=== PATIENT | female | born 1930 | race Caucasian/White ===

== ENCOUNTER 2016-05-31 14:02 | Emergency (ER) | payer BC, OTHER ==
[~2016-05-31 14:02] MED LIST: ATOR-22 PO; CHOL100010 PO; LOSA50TA54 PO; ONDA4TAB10 SL
[2016-05-31 14:07] VITALS: TEMP 36.8
[2016-05-31] MEDS ORDERED: ESCI1TAB6 PO (14:49)
[2016-05-31] MEDS ORDERED: NEOMSUS6 OPL (14:49)
[2016-05-31] MEDS ORDERED: SODIUM CHLORIDE 0.9% 250ML 250 ML IV STA (15:26)
[2016-05-31] MEDS ORDERED: SODIUM CHLORIDE 0.9% 1000ML 1,000 ML IV STA (15:26)
--- NOTE | 2016-05-31 15:26 | EMERGENCY ROOM VISIT NOTE ---
History Report prepared by Dang: Carol Henson Under the Supervision of: Dr. Dulce Durbin M.D. First contact with patient: 14:58 Chief Complaint: LEG PAIN,LEG INJURY Stated Complaint: LEGS History of Present Illness The patient is a 86 year old female who presents to the Emergency Room with complaints of intermittent bilateral inner leg pain that started this morning. The pain is not influenced by walking. She has experienced this pain once in the past when she was dehydrated per her daughter. She denies fevers and vomiting. She saw her PCP yesterday and everything was fine. The patient lives alone and has not experienced any trouble ambulating. She states that she eats 3 meals a day but her son states that she has trouble remembering things so they don't know how much she eats. Source of History: patient, family (daughter) Onset: this morning Position: leg (bilateral) Quality: other (bilateral inner leg pain) Timing: intermittent Associated Symptoms: No fevers, No vomiting Review of Systems See HPI for pertinent positives & negatives. A total of 10 systems reviewed and were otherwise negative. Past Medical & Surgical Medical Problems: (1) Benign hypertension (2) BRBPR (bright red blood per rectum) (3) Breast cancer (4) Gastroesophageal reflux disease (5) Heart disease (6) Mastectomy (7) Pulmonary embolism (8) UTI Social History Problems: (1) Hearing loss Family History No pertinent family history Social History Smoking Status: Never Smoker Alcohol Use: none Marital Status: Housing Status: lives alone Occupation Status: retired Current/Historical Medications Scheduled Aspirin (Aspirin Ec), 81 MG PO DAILY Atorvastatin (Lipitor), 20 MG PO DAILY@1630 Carvedilol (Coreg), 1 TAB PO BID Cholecalciferol (Vitamin D), 1,000 INTER.UNIT PO DAILY@1630 Escitalopram Oxalate (Lexapro), 5 MG PO DAILY Famotidine (Pepcid), 20 MG PO HS Hydrochlorothiazide (Hctz), 25 MG PO DAILY Losartan Potassium (Cozaar), 25 MG PO DAILY Ocyqnzvn-Ytcsqyqgk-Uk Oph (Cortisporin Oph), 1 DROP OPL Q4 Ocuvite Preservision (Ocuvite Preservision), 1 TAB PO DAILY Ondasetron Odt (Zofran Odt), 4 MG SL Q6H Travoprost (Travatan Z), 1 DROP OPB HS Scheduled PRN Lorazepam (Ativan), 0.5 MG PO DAILY@1200 PRN for Anxiety Allergies Coded Allergies: Clindamycin/Lincomycin (Verified Allergy, Severe, SHORTNESS OF BREATH, ) Cephalosporins (Verified Allergy, Intermediate, RASH-UPSET STOMACH, ) Penicillins (Verified Allergy, Intermediate, RASH-UPSET STOMACH, 05/31/16) Aspirin (Verified Adverse Reaction, Mild, burning is stomach, 05/31/16) Physical Exam Vital Signs Date Time Temp Pulse Resp B/P Pulse Ox O2 Delivery O2 Flow Rate FiO2 05/31/16 17:35 66 17 180/95 96 05/31/16 16:45 60 05/31/16 16:15 53 12 171/88 98 Room Air 05/31/16 14:07 36.8 63 18 149/81 94 Room Air Physical Exam Vital signs reviewed. General: Well-appearing female, in no significant distress. HEENT: No scleral icterus, PERRLA, neck supple. Atraumatic. Cardiovascular: Regular rate and rhythm, no extra sounds. Pulmonary: Clear to auscultation bilaterally, normal work of breathing. Abdomen: Soft, nontender, nondistended, positive bowel sounds. Musculoskeletal: Atraumatic, no peripheral edema. Nontender to palpation of bilateral lower extremities. Neurologic: Patient awake alert and oriented x 3, full strength in all 4 extremities. Cranial nerves 2 through 12 grossly intact. Skin: Warm, dry, no rash Medical Decision & Procedures Laboratory Results 05/31/16 15:45 Red Blood Count 4.24, Mean Corpuscular Volume 90.8, Mean Corpuscular Hemoglobin 30.4, Mean Corpuscular Hemoglobin Concent 33.5, Mean Platelet Volume 10.5, Neutrophils (%) (Auto) 73.0, Lymphocytes (%) (Auto) 16.0, Monocytes (%) (Auto) 8.7, Eosinophils (%) (Auto) 1.6, Basophils (%) (Auto) 0.2, Neutrophils # (Auto) 8.78, Lymphocytes # (Auto) 1.92, Monocytes # (Auto) 1.05, Eosinophils # (Auto) 0.19, Basophils # (Auto) 0.03 05/31/16 15:45 Test 05/31/16 15:45 05/31/16 15:49 05/31/16 16:00 White Blood Count 12.03 K/uL (4.8-10.8) Red Blood Count 4.24 M/uL (4.2-5.4) Hemoglobin 12.9 g/dL (12.0-16.0) Hematocrit 38.5 % (37-47) Mean Corpuscular Volume 90.8 fL (80-100) Mean Corpuscular Hemoglobin 30.4 pg (25-34) Mean Corpuscular Hemoglobin Concent 33.5 g/dl (32-36) Platelet Count 617 K/uL (130-400) Mean Platelet Volume 10.5 fL (7.4-10.4) Neutrophils (%) (Auto) 73.0 % Lymphocytes (%) (Auto) 16.0 % Monocytes (%) (Auto) 8.7 % Eosinophils (%) (Auto) 1.6 % Basophils (%) (Auto) 0.2 % Neutrophils # (Auto) 8.78 K/uL (1.4-6.5) Lymphocytes # (Auto) 1.92 K/uL (1.2-3.4) Monocytes # (Auto) 1.05 K/uL (0.11-0.59) Eosinophils # (Auto) 0.19 K/uL (0-0.5) Basophils # (Auto) 0.03 K/uL (0-0.2) RDW Standard Deviation 51.0 fL (36.4-46.3) RDW Coefficient of Variation 15.4 % (11.5-14.5) Immature Granulocyte % (Auto) 0.5 % Immature Granulocyte # (Auto) 0.06 K/uL (0.00-0.02) Anion Gap 7.0 mmol/L (3-11) Estimated GFR () 59.8 Estimated GFR (Non- 51.6 BUN/Creatinine Ratio 22.1 (10-20) Calcium Level 8.6 mg/dl (8.5-10.1) Magnesium Level 2.0 mg/dl (1.8-2.4) Total Bilirubin 0.4 mg/dl (0.2-1) Direct Bilirubin 0.1 mg/dl (0-0.2) Aspartate Amino Transf (AST/SGOT) 15 U/L (15-37) Alanine Aminotransferase (ALT/SGPT) 22 U/L (12-78) Alkaline Phosphatase 80 U/L (45-117) Total Protein 6.4 gm/dl (6.4-8.2) Albumin 3.7 gm/dl (3.4-5.0) Lipase 87 U/L (73-393) Bedside Troponin I 0.000 ng/ml (0-0.045) Urine Color YELLOW Urine Appearance CLEAR (CLEAR) Urine pH 6.5 (4.5-7.5) Urine Specific [place] 1.005 (1.000-1.030) Urine Protein NEG (NEG) Urine Glucose (UA) NEG (NEG) Urine Ketones NEG (NEG) Urine Occult Blood NEG (NEG) Urine Nitrite NEG (NEG) Urine Bilirubin NEG (NEG) Urine Urobilinogen NEG (NEG) Urine Leukocyte Esterase NEG (NEG) Laboratory results per my review. Medications Administered Medications (Trade) Dose Ordered Sig/Pelon Route Start Time Stop Time Status Last Admin Dose Admin Sodium Chloride 250 ml @ 999 mls/hr Q16M STAT IV 05/31/16 15:26 05/31/16 15:41 DC 05/31/16 16:00 999 MLS/HR Sodium Chloride (Nss 1000ml) 1,000 ml @ 125 mls/hr Q8H STAT IV 05/31/16 15:26 05/31/16 18:32 DC 05/31/16 16:00 125 MLS/HR ECG Rate (beats per minute): 54 Rhythm: sinus bradycardia Findings: no acute ischemic change, no ectopy, other (previous septal infarct) ED Course 1516: Past medical records reviewed. The patient was evaluated in room B12. A complete history and physical examination was performed. 1526: Ordered Sodium Chloride 1000 ml @ 125 mls/hr IV, Sodium Chloride 250 ml @ 999 mls/hr IV 1701: Upon reevaluation, the patient appeared to have improvement of her symptoms. I discussed findings with the patient and her family. They verbalized agreement of the treatment plan. The patient was discharged home. Medical Decision The patient is a 86 year old female who presents to the Emergency Room with complaints of intermittent bilateral inner leg pain that started this morning. Differentials include metabolic, infection, hypo/hyperglycemia, electrolyte abnormalities, cardiac sources, intracerebral event, toxicologic, neurologic, sciatica. This patient was evaluated and appeared to be in no distress. IV access was obtained and laboratory work was drawn. Patient was placed on the monitor and storage bin tender. Patient was hydrated with normal saline solution. Laboratory work reveals no significant abnormalities. The patient's BUN is slightly elevated, consistent with previous numbers. Urinalysis is negative for infection. At this time the patient is feeling much improved. I believe her leg pain is likely a muscular or neuropathic pain. Patient's family feels comfortable with the plan for discharge. They will follow-up with primary care provider this week and return to the ER for worsening of symptoms or any medical concerns. Impression Primary Impression: Bilateral leg pain Scribe Attestation The scribe's documentation has been prepared under my direction and personally reviewed by me in its entirety. I confirm that the note above accurately reflects all work, treatment, procedures, and medical decision making performed by me. Departure Information Dispostion Home / Self-Care Referrals Avelina Lugo C.R.N.P (PCP) Forms HOME CARE DOCUMENTATION FORM, IMPORTANT VISIT INFORMATION Patient Instructions My [facility] Additional Instructions Diagnosis: Bilateral leg pain Drink plenty of clear fluids. Eat frequent small meals. Continue medications as prescribed. Follow-up with your physician this week for reevaluation. Return to the ER for worsening of symptoms or any medical concerns.
[2016-05-31 15:58] LABS: BASO % 0.2 %; BASO ABS # 0.03 K/uL (0-0.2); COMPLETE YES; EOS % 1.6 %; HEMATOCRIT 38.5 % (37-47); IG% 0.5 %; LYMPH ABS # 1.92 K/uL (1.2-3.4); MEAN CELL VOLUME 90.8 fL (80-100); MEAN CORPUSCULAR HEMOGLOBIN 30.4 pg (25-34); MEAN CORPUSCULAR HGB CONC 33.5 g/dl (32-36); MEAN PLATELET VOLUME 10.5 fL (7.4-10.4); MONO % 8.7 %; PLATELET COUNT 617 K/uL (130-400); RED BLOOD COUNT 4.24 M/uL (4.2-5.4); WHITE BLOOD COUNT 12.03 K/uL (4.8-10.8)
[2016-05-31 16:21] LABS: ALT/SGPT 22 U/L (12-78); AST/SGOT 15 U/L (15-37); BLOOD UREA NITROGEN 22 mg/dl (7-18); BUN/CREATININE RATIO 22.1 (10-20); CALCIUM 8.6 mg/dl (8.5-10.1); CARBON DIOXIDE 30 mmol/L (21-32); CHLORIDE 101 mmol/L (98-107); CREATININE 0.99 mg/dl (0.60-1.20); GLUCOSE 100 mg/dl (70-99); POTASSIUM 3.9 mmol/L (3.5-5.1); SODIUM 138 mmol/L (136-145)
[2016-05-31 16:24] LABS: ALKALINE PHOSPHATASE 80 U/L (45-117)
[2016-05-31 16:38] LABS: URINE APPEARANCE CLEAR (CLEAR); URINE BILIRUBIN NEG (NEG); URINE COLOR YELLOW; URINE NITRITE NEG (NEG); URINE PH 6.5 (4.5-7.5); URINE SPECIFIC GRAVITY 1.005 (1.000-1.030); UROBILINOGEN NEG (NEG); ZZUR CULT IF INDIC CLEAN CATCH NO
[2016-05-31 16:47] LABS: MANUAL MICROSCOPIC REQUIRED? NO; REVIEW REQ? NO
[2016-05-31 17:35] VITALS: BP 180/95; PULSE 66; O2SAT 96
[2016-09-02] MEDS ORDERED: FAMO20TA9 PO (12:27)
[2016-09-02] MEDS ORDERED: TRAV0.00 OPB (12:36)
[2016-09-02] MEDS ORDERED: MULT-190 PO (14:23)
[2016-09-02] MEDS ORDERED: CARV3.122 PO (14:47)
[2016-09-02] MEDS ORDERED: ATV/1 PO (14:47)
[2016-09-02] MEDS ORDERED: HYDR25TA4 PO (14:47)
[2016-09-02] MEDS ORDERED: ASPI81TA28 PO (14:47)
== END 2016-05-31 17:37 | disposition home or self-care (01) ==
LOC: C.EDB 14:12
DX: M79.604 Pain in right leg (principal); M79.605 Pain in left leg; I10 Essential (primary) hypertension; K21.9 Gastro-esophageal reflux disease without esophagitis; H91.90 Unspecified hearing loss, unspecified ear; Z79.899 Other long term (current) drug therapy; Z79.82 Long term (current) use of aspirin; Z85.3 Personal history of malignant neoplasm of breast; Z86.711 Personal history of pulmonary embolism

== ENCOUNTER → 2016-06-14 | Outpatient (CLI) | payer BC ==
[~2016-06-14] MED LIST changes: +ASPI81TA28 PO; +ATV/1 PO; +CARV3.122 PO; +CHOL100027 PO; +ESCI10TA17 PO; +ESCI1TAB6 PO; +FAMO20TA9 PO; +HYDR25TA4 PO; +LOSA50TA6 PO; +MULT-190 PO; +NEOMSUS6 OPL; +TRAV0.00 OPB
--- NOTE | 2016-06-14 14:02 | DIAGNOSTIC IMAGING REPORT ---
LEFT LOWER EXTREMITY VENOUS DOPPLER CLINICAL HISTORY: Left calf pain. COMPARISON STUDY: Left lower extremity venous Doppler June 25, 2011. TECHNIQUE: Sonography of the deep venous system of the left lower extremity was performed. Compression and augmentation were evaluated. FINDINGS: The left common femoral, superficial femoral and popliteal veins were compressible. Augmentation was normal. Flow was shown within the deep calf vessels. IMPRESSION: No evidence of deep venous thrombus within the left lower extremity. Electronically signed by: Charan Fountain M.D. 06/14/2016 2:01 PM Dictated Date/Time: 06/14/2016 2:00 PM
== END | disposition home or self-care (01) ==
LOC: C.ULTR 12:48
PROVIDERS: ATTEND Nurse Practitioner
DX: M79.662 Pain in left lower leg (principal); Z86.711 Personal history of pulmonary embolism

== ENCOUNTER 2016-09-02 20:49 | Emergency (ER) | payer BC ==
[~2016-09-02] VITALS: Ht 160 cm; Wt 76.9 kg
[~2016-09-02 20:49] MED LIST changes: -CHOL100027 PO; -ESCI10TA17 PO; -LOSA50TA6 PO; -ONDA4TAB10 SL
[2016-09-02 20:59] VITALS: TEMP 36.8; Ht 160 cm; Wt 76.9 kg
[2016-09-02] MEDS ORDERED: ONDANSETRON INJ 2 MG/ML 2 ML VIAL IV STA (21:12)
[2016-09-02] MEDS ORDERED: MoRPHine SULFATE 4 MG/ML 1 ML CARP\\VIAL IV STA (21:12)
[2016-09-02] MEDS ORDERED: OPTIRAY 320 IV PRN (21:15)
[2016-09-02] MEDS ORDERED: MoRPHine SULFATE 2 MG/ML CARP ONE (21:26)
[2016-09-02 21:30] LABS: BASO % 0.3 %; BASO ABS # 0.04 K/uL (0-0.2); COMPLETE YES; EOS % 3.4 %; HEMATOCRIT 42.7 % (37-47); IG% 0.8 %; LYMPH % 19.1 %; LYMPH ABS # 2.27 K/uL (1.2-3.4); MEAN CELL VOLUME 90.5 fL (80-100); MEAN CORPUSCULAR HEMOGLOBIN 29.9 pg (25-34); MEAN PLATELET VOLUME 10.7 fL (7.4-10.4); MONO % 9.2 %; NEUT % 67.2 %; PLATELET COUNT 690 K/uL (130-400); RED BLOOD COUNT 4.72 M/uL (4.2-5.4); WHITE BLOOD COUNT 11.88 K/uL (4.8-10.8)
[2016-09-02 21:36] LABS: ISTAT IONIZED CALCIUM 1.17 mmol/l (1.12-1.32)
[2016-09-02] MEDS ORDERED: CHOL100027 PO (21:38)
[2016-09-02] MEDS ORDERED: LOSA50TA6 PO (21:38)
[2016-09-02] MEDS ORDERED: ESCI10TA17 PO (21:38)
[2016-09-02 21:39] LABS: PARTIAL THROMBOPLASTIN RATIO 1.1; PROTHROMBIN TIME (PATIENT) 10.8 SECONDS (9.0-12.0)
--- NOTE | 2016-09-02 21:50 | DIAGNOSTIC IMAGING REPORT ---
CT ABD/PELVIS IV CONTRAST ONLY CLINICAL HISTORY: Abdominal pain status post trauma COMPARISON STUDY: 09/20/2015 TECHNIQUE: Following the IV administration of 93 mL of Optiray-320, CT scan of the abdomen and pelvis was performed from the lung bases to the proximal femurs. Images are reviewed in the axial, sagittal, and coronal planes. IV contrast was administered without complication. CT DOSE: 499.07 mGy.cm FINDINGS: Lower chest: There are mild basilar atelectatic changes. No pneumothorax is visualized. Liver: The contrast-enhanced liver is normal in size, contour, and attenuation. There is no intrahepatic biliary ductal dilatation. The hepatic veins and portal veins are patent. Gallbladder: Unremarkable. Spleen: Normal in size and attenuation. Pancreas: Unremarkable. Adrenal glands: There is mild left adrenal gland thickening unchanged the prior study Kidneys: There is a 4 mm left renal hypodensity, likely representing a cyst. There is no evidence of acute renal injury. Bowel: There are no transition zones indicate bowel obstruction. There are no extraluminal gas collections. There is a bowel containing right inguinal hernia. There is no current evidence of bowel obstruction. Peritoneum: There is no intraperitoneal free air or abdominal ascites. Vasculature: The abdominal aorta is normal in course and caliber. Adenopathy: None. Pelvic viscera: There is a 9 cm calcified uterine fibroid Skeletal structures: Degenerative changes are present within the lumbar spine. IMPRESSION: 1. No evidence of acute intra-abdominal or pelvic injury. 2. Right inguinal hernia containing a loop of small bowel. No current evidence of obstruction. Electronically signed by: Marcos Griffiths M.D. 09/02/2016 9:48 PM Dictated Date/Time: 09/02/2016 9:44 PM
[2016-09-02 21:54] LABS: ALT/SGPT 18 U/L (12-78); BLOOD UREA NITROGEN 20 mg/dl (7-18); BUN/CREATININE RATIO 18.4 (10-20); CARBON DIOXIDE 28 mmol/L (21-32); CHLORIDE 104 mmol/L (98-107); GLUCOSE 98 mg/dl (70-99); POTASSIUM 3.9 mmol/L (3.5-5.1); SODIUM 142 mmol/L (136-145)
[2016-09-02 21:57] LABS: ALKALINE PHOSPHATASE 80 U/L (45-117); AST/SGOT 20 U/L (15-37)
[2016-09-02 22:05] LABS: CALCIUM 9.2 mg/dl (8.5-10.1)
[2016-09-02 22:12] LABS: URINE APPEARANCE CLEAR (CLEAR); URINE BILIRUBIN NEG (NEG); URINE COLOR YELLOW; URINE NITRITE NEG (NEG); URINE SPECIFIC GRAVITY 1.023 (1.000-1.030); UROBILINOGEN NEG (NEG)
[2016-09-02 22:13] LABS: MANUAL MICROSCOPIC REQUIRED? NO; REVIEW REQ? NO
[2016-09-02 22:36] VITALS: BP 172/81; PULSE 66; O2SAT 95
--- NOTE | 2016-09-03 00:01 | EMERGENCY ROOM VISIT NOTE ---
History Report prepared by Dang: Dorothy Haile Under the Supervision of: Dr. Santos Broussard M.D. 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 The patient was outside this evening when she slipped on the wet grass and fell to the ground. She could not catch herself and landed on her abdomen. She is currently complaining of diffuse abdominal pains that she rates as a 7/10 in severity. She felt nauseated at first, but is no longer feeling nauseated. The patient has chronic joint pain but she denies any new injury to her arms, legs, hips, neck, or back. She denies LOC. She does not think that she hit her face when she fell. She denies breaking her glasses and denies any nasal pain or headache. The patient takes aspirin but denies other blood thinners. Source of History: patient Onset: DIFFERENTIAL SPECIALIST Position: abdomen Symptom Intensity: 7/10 Timing: other (episode) Associated Symptoms: + nausea, No LOC, No back pain, No headache, No neck pain Review of Systems See HPI for pertinent positives & negatives. A total of 10 systems reviewed and were otherwise negative. Past Medical & Surgical Medical Problems: (1) Benign hypertension (2) BRBPR (bright red blood per rectum) (3) Breast cancer (4) Gastroesophageal reflux disease (5) Heart disease (6) Mastectomy (7) Pulmonary embolism (8) UTI Social History Problems: (1) Hearing loss Family History No pertinent family history Social History Smoking Status: Never Smoker Alcohol Use: none Marital Status: Housing Status: lives alone Occupation Status: retired Current/Historical Medications Scheduled Aspirin (Aspirin Ec), 81 MG PO DAILY Carvedilol (Coreg), 1 TAB PO BID Cholecalciferol (Vitamin D 1000 Unit), 1,000 INTER.UNIT PO DAILY Escitalopram (Lexapro), 10 MG PO DAILY Famotidine (Pepcid), 20 MG PO HS Hydrochlorothiazide (Hctz), 25 MG PO DAILY Losartan Potassium (Cozaar), 25 MG PO DAILY Ocuvite Preservision (Ocuvite Preservision), 1 TAB PO DAILY Travoprost (Travatan Z), 1 DROP OPB HS Scheduled PRN Lorazepam (Ativan), 0.5 MG PO DAILY PRN for Anxiety Allergies Coded Allergies: Clindamycin/Lincomycin (Verified Allergy, Severe, SHORTNESS OF BREATH, ) Cephalosporins (Verified Allergy, Intermediate, RASH-UPSET STOMACH, ) Penicillins (Verified Allergy, Intermediate, RASH-UPSET STOMACH, 05/31/16) Aspirin (Verified Adverse Reaction, Mild, burning is stomach, 05/31/16) Physical Exam Vital Signs Date Time Temp Pulse Resp B/P Pulse Ox O2 Delivery O2 Flow Rate FiO2 09/02/16 22:36 66 20 172/81 95 Room Air 09/02/16 21:26 62 09/02/16 21:25 60 16 170/86 91 Room Air 09/02/16 20:59 36.8 63 16 176/93 Room Air Physical Exam Constitutional: Vital signs reviewed. Eyes: Pupils are equal round reactive to light. Conjunctiva are noninjected. ENT: Pharynx is clear without erythema or exudate. Mucous membranes are moist. Neck supple without meningeal signs. Respiratory: Clear to auscultation bilaterally. Breath sounds are equal bilaterally. Cardiovascular: Regular rate and rhythm. No rubs or gallops. GI: Soft, nondistended. Mild diffuse tenderness throughout the abdomen greater on the right side. Bowel sounds are present. Musculoskeletal: No hip or lower extremity tenderness. No tenderness to the shoulders or clavicles. No midline tenderness to the cervical spine. Integumentary: No cyanosis. Neurological: The patient is awake and alert. No focal deficits. Psychiatric: Normal affect. Medical Decision & Procedures ER Provider Diagnostic Interpretation: Radiology results as stated below per my review and the radiologist's interpretation: CT ABD/PELVIS IV CONTRAST ONLY CLINICAL HISTORY: Abdominal pain status post trauma COMPARISON STUDY: 09/20/2015 TECHNIQUE: Following the IV administration of 93 mL of Optiray-320, CT scan of the abdomen and pelvis was performed from the lung bases to the proximal femurs. Images are reviewed in the axial, sagittal, and coronal planes. IV contrast was administered without complication. CT DOSE: 499.07 mGy.cm FINDINGS: Lower chest: There are mild basilar atelectatic changes. No pneumothorax is visualized. Liver: The contrast-enhanced liver is normal in size, contour, and attenuation. There is no intrahepatic biliary ductal dilatation. The hepatic veins and portal veins are patent. Gallbladder: Unremarkable. Spleen: Normal in size and attenuation. Pancreas: Unremarkable. Adrenal glands: There is mild left adrenal gland thickening unchanged the prior study Kidneys: There is a 4 mm left renal hypodensity, likely representing a cyst. There is no evidence of acute renal injury. Bowel: There are no transition zones indicate bowel obstruction. There are no extraluminal gas collections. There is a bowel containing right inguinal hernia. There is no current evidence of bowel obstruction. Peritoneum: There is no intraperitoneal free air or abdominal ascites. Vasculature: The abdominal aorta is normal in course and caliber. Adenopathy: None. Pelvic viscera: There is a 9 cm calcified uterine fibroid Skeletal structures: Degenerative changes are present within the lumbar spine. IMPRESSION: 1. No evidence of acute intra-abdominal or pelvic injury. 2. Right inguinal hernia containing a loop of small bowel. No current evidence of obstruction. Electronically signed by: Marcos Griffiths M.D. 09/02/2016 9:48 PM Dictated Date/Time: 09/02/2016 9:44 PM Laboratory Results 09/02/16 21:15 Red Blood Count 4.72, Mean Corpuscular Volume 90.5, Mean Corpuscular Hemoglobin 29.9, Mean Corpuscular Hemoglobin Concent 33.0, Mean Platelet Volume 10.7, Neutrophils (%) (Auto) 67.2, Lymphocytes (%) (Auto) 19.1, Monocytes (%) (Auto) 9.2, Eosinophils (%) (Auto) 3.4, Basophils (%) (Auto) 0.3, Neutrophils # (Auto) 7.99, Lymphocytes # (Auto) 2.27, Monocytes # (Auto) 1.09, Eosinophils # (Auto) 0.40, Basophils # (Auto) 0.04 09/02/16 21:15 Test 09/02/16 21:15 09/02/16 21:22 09/02/16 22:00 White Blood Count 11.88 K/uL (4.8-10.8) Red Blood Count 4.72 M/uL (4.2-5.4) Hemoglobin 14.1 g/dL (12.0-16.0) Hematocrit 42.7 % (37-47) Mean Corpuscular Volume 90.5 fL (80-100) Mean Corpuscular Hemoglobin 29.9 pg (25-34) Mean Corpuscular Hemoglobin Concent 33.0 g/dl (32-36) Platelet Count 690 K/uL (130-400) Mean Platelet Volume 10.7 fL (7.4-10.4) Neutrophils (%) (Auto) 67.2 % Lymphocytes (%) (Auto) 19.1 % Monocytes (%) (Auto) 9.2 % Eosinophils (%) (Auto) 3.4 % Basophils (%) (Auto) 0.3 % Neutrophils # (Auto) 7.99 K/uL (1.4-6.5) Lymphocytes # (Auto) 2.27 K/uL (1.2-3.4) Monocytes # (Auto) 1.09 K/uL (0.11-0.59) Eosinophils # (Auto) 0.40 K/uL (0-0.5) Basophils # (Auto) 0.04 K/uL (0-0.2) RDW Standard Deviation 52.2 fL (36.4-46.3) RDW Coefficient of Variation 15.7 % (11.5-14.5) Immature Granulocyte % (Auto) 0.8 % Immature Granulocyte # (Auto) 0.09 K/uL (0.00-0.02) Prothrombin Time 10.8 SECONDS (9.0-12.0) Prothromb Time International Ratio 1.0 (0.9-1.1) Activated Partial Thromboplast Time 29.6 SECONDS (21.0-31.0) Partial Thromboplastin Ratio 1.1 Est Creatinine Clear Calc Drug Dose 36.0 ml/min Estimated GFR () 52.6 Estimated GFR (Non- 45.4 BUN/Creatinine Ratio 18.4 (10-20) Calcium Level 9.2 mg/dl (8.5-10.1) Total Bilirubin 0.3 mg/dl (0.2-1) Direct Bilirubin < 0.1 mg/dl (0-0.2) Aspartate Amino Transf (AST/SGOT) 20 U/L (15-37) Alanine Aminotransferase (ALT/SGPT) 18 U/L (12-78) Alkaline Phosphatase 80 U/L (45-117) Total Protein 6.6 gm/dl (6.4-8.2) Albumin 3.8 gm/dl (3.4-5.0) Lipase 80 U/L (73-393) Bedside Hemoglobin 15.0 g/dl (12.0-16.0) Bedside Hematocrit 44 % (37-47) Bedside Sodium 142 mEq/L (135-144) Bedside Potassium 3.9 mEq/L (3.3-5.0) Bedside Chloride 100 mEq/L (101-112) Bedside Total CO2 26 mEq/l (24-31) Anion Gap 20.0 mmol/L (16-25) Bedside Blood Urea Nitrogen 22 mg/dl (7-18) Bedside Creatinine 1.0 mg/dl (0.6-1.3) Bedside Glucose (other) 99 mg/dl (70-99) Bedside Ionized Calcium (Carey) 1.17 mmol/l (1.12-1.32) Urine Color YELLOW Urine Appearance CLEAR (CLEAR) Urine pH 7.0 (4.5-7.5) Urine Specific [place] 1.023 (1.000-1.030) Urine Protein NEG (NEG) Urine Glucose (UA) NEG (NEG) Urine Ketones NEG (NEG) Urine Occult Blood NEG (NEG) Urine Nitrite NEG (NEG) Urine Bilirubin NEG (NEG) Urine Urobilinogen NEG (NEG) Urine Leukocyte Esterase SMALL (NEG) Urine WBC (Auto) 5-10 /hpf (0-5) Urine RBC (Auto) 0-4 /hpf (0-4) Urine Hyaline Casts (Auto) 0 /lpf (0-5) Urine Epithelial Cells (Auto) 5-10 /lpf (0-5) Urine Bacteria (Auto) NEG (NEG) Laboratory results as reviewed by me. ED Course 2104: The patient was evaluated in room A12B. A complete history and physical exam was performed. 2111: Zofran 4 mg IV - pt refused, Morphine sulfate 2 mg IV - pt refused. 2125: Morphine sulfate 2 mg IV - pt refused 4: I went to check on the patient but she was in the bathroom. 2226: I reassessed the patient at this time. She has refused all of her medications but states that she is feeling better. I discussed the results with the patient and she states that she already knows about the inguinal hernia. I answered all pertaining questions that she had. She expressed understanding and verbalized agreement. On reexamination the patient had minimal to no tenderness. There was an easily reducible right inguinal hernia. The patient will be discharged home. Medical Decision This is an 86-year-old female who presents with abdominal pain after falling. She denies any other injuries. I did perform a limited focused review of portions of the patient's old chart on the electronic medical record. The patient has had no recent pertinent visits to this hospital. I did evaluate the patient as noted above. IV access was established. I did order and personally review the patient's urine analysis as described above. I did order and review the patient's blood work as noted in the electronic medical record. I did order a CT of the abdomen and pelvis. I did review the images myself as well as the radiology report as described above. There is no evidence of acute intra-abdominal injury. She does have a right inguinal hernia. I did order morphine and Zofran for the patient but she declined it. On reassessment she states that she is feeling better despite not receiving any medication. On reexamination she has a reducible inguinal hernia on the right side and minimal to no tenderness in the abdomen. She does state that she has known about this single hernia in the past. I did discuss the test results with the patient and her family. I did recommend close follow up with her doctor and reviewed return instructions with the patient and her family. She was discharged in good condition. Impression Primary Impression: Generalized abdominal pain Additional Impressions: Fall Right inguinal hernia Scribe Attestation The scribe's documentation has been prepared under my direct and personally reviewed by me in its entirety. I confirm that the note above accurately reflects all work, treatment, procedures, and medical decision making performed by me. Departure Information Dispostion Home / Self-Care Referrals Avelina Lugo C.R.N.P (PCP) Forms HOME CARE DOCUMENTATION FORM, IMPORTANT VISIT INFORMATION Patient Instructions ED Hernia Inguinal, My [facility] Additional Instructions You have been examined and treated today on an emergency basis only. This is not a substitute for, or an effort to provide, complete comprehensive medical care. It is impossible to recognize and treat all injuries or illnesses in a single emergency department visit. It is therefore important that you follow up closely with your physician within 48 hours. Call as soon as possible for an appointment. Return for worsening symptoms or if you develop fever, vomiting, blood in your stool or urine, or any other concerning symptoms. Problem Qualifiers Additional Impressions: Fall Encounter type: initial encounter Qualified Codes: W19.XXXA - Unspecified fall, initial encounter
== END 2016-09-02 22:40 | disposition home or self-care (01) ==
LOC: C.EDB 20:50 → C.EDA 22:40
DX: R10.84 Generalized abdominal pain (principal); W01.0XXA Fall on same level from slipping, tripping and stumbling without subsequent striking against object, initial encounter; K40.90 Unilateral inguinal hernia, without obstruction or gangrene, not specified as recurrent; D25.9 Leiomyoma of uterus, unspecified; I10 Essential (primary) hypertension; K21.9 Gastro-esophageal reflux disease without esophagitis; I51.9 Heart disease, unspecified; Z86.711 Personal history of pulmonary embolism; Z85.3 Personal history of malignant neoplasm of breast; Z90.10 Acquired absence of unspecified breast and nipple; Z87.440 Personal history of urinary (tract) infections; Z79.82 Long term (current) use of aspirin; Z79.899 Other long term (current) drug therapy; Z88.0 Allergy status to penicillin; Z88.2 Allergy status to sulfonamides; Z88.3 Allergy status to other anti-infective agents; Z88.6 Allergy status to analgesic agent

== ENCOUNTER → 2017-03-06 | Outpatient (CLI) | payer BC ==
[~2017-03-06] MED LIST changes: -ATOR-22 PO; -CHOL100010 PO; +CHOL100027 PO; +ESCI10TA17 PO; -ESCI1TAB6 PO; -LOSA50TA54 PO; +LOSA50TA6 PO; -NEOMSUS6 OPL
[2017-03-06 13:00] LABS: BLOOD UREA NITROGEN 19 mg/dl (7-18); BUN/CREATININE RATIO 20.3 (10-20); CALCIUM 8.8 mg/dl (8.5-10.1); CARBON DIOXIDE 32 mmol/L (21-32); CHLORIDE 104 mmol/L (98-107); CREATININE 0.92 mg/dl (0.60-1.20); GLUCOSE 78 mg/dl (70-99); POTASSIUM 4.2 mmol/L (3.5-5.1); SODIUM 140 mmol/L (136-145)
== END | disposition home or self-care (01) ==
LOC: C.LABPVFM 10:30
PROVIDERS: ATTEND Nurse Practitioner
DX: R63.4 Abnormal weight loss (principal); I10 Essential (primary) hypertension

== ENCOUNTER → 2017-12-03 | Outpatient (CLI) | payer BC ==
--- NOTE | 2017-12-03 14:04 | DIAGNOSTIC IMAGING REPORT ---
L PELVIS/UNILATERAL HIP 2-3VIEWS HISTORY: 87 years-old Female GROIN PAIN acute left hip and pelvic pain COMPARISON: CT abdomen and pelvis 09/02/2016 TECHNIQUE: AP view of the pelvis with 2 views of the left hip FINDINGS: Large calcified uterine leiomyoma is again noted measuring over 9 mm. Probable phleboliths about the pelvis. Degenerative changes about the imaged lumbar spine. Moderate bilateral hip osteoarthritis. The bones appear moderately demineralized. No pelvic ring fracture identified. Left hip appears intact without acute fracture or dislocation. Peripheral arterial calcifications are noted. IMPRESSION: No acute fracture or dislocation. The above report was generated using voice recognition software. It may contain grammatical, syntax or spelling errors. Electronically signed by: Leon Carty M.D. 12/03/2017 2:03 PM Dictated Date/Time: 12/03/2017 2:01 PM
== END | disposition home or self-care (01) ==
LOC: C.RADPV 13:38
PROVIDERS: ATTEND Nurse Practitioner Family
DX: R10.30 Lower abdominal pain, unspecified (principal)

== ENCOUNTER 2018-09-15 10:07 | Inpatient (IN) ==
[2018-09-15] MEDS ORDERED: ALBUT/IPRATROP 3MG/0.5MG NEB 3 ML VIAL INH STA (10:49)
[2018-09-15 11:08] LABS: Basophils # (auto) 0.03 K/uL (0-0.2); Basophils % (auto) 0.2 %; Eosinophils # (auto) 1.03 K/uL (0-0.5); Eosinophils % (auto) 7.9 %; Hematocrit (blood only) 37.5 % (37-47); Hemoglobin 12.4 g/dL (12.0-16.0); Immature Granulocytes # (auto) 0.13 K/uL (0.00-0.02); Lymphocytes # (auto) 1.56 K/uL (1.2-3.4); Lymphocytes % (auto) 11.9 %; Mean Corpuscular Hgb Conc 33.1 g/dL (32-36); Mean Corpuscular Volume 94.7 fL (80-100); Mean Platelet Volume 11.2 fL (7.4-10.4); Monocytes # (auto) 1.32 K/uL (0.11-0.59); Monocytes % (auto) 10.1 %; Neutrophils # (auto) 8.99 K/uL (1.4-6.5); Neutrophils % (auto) 68.9 %; Platelet Count 595 K/uL (130-400); RDW Coefficient of Variation 15.3 % (11.5-14.5); RDW Standard Deviation 52.6 fL (36.4-46.3); Red Blood Count 3.96 M/uL (4.2-5.4); White Blood Count 13.06 K/uL (4.8-10.8)
[2018-09-15 11:17] LABS: Alanine Aminotransferase 27 U/L (12-78); Albumin Level 3.4 gm/dl (3.4-5.0); Aspartate Aminotransferase 21 U/L (15-37); BUN Creatinine Ratio 19.1 (10-20); Blood Urea Nitrogen 21 mg/dl (7-18); Calcium 8.6 mg/dl (8.5-10.1); Carbon Dioxide 31 mmol/L (21-32); Chloride 99 mmol/L (98-107); Creatinine Clr Calc Pharmacy 29.2 ml/min; Est GFR (African American) 51.9; Est GFR (Non-African American) 44.8; Glucose 144 mg/dl (70-99); Magnesium 1.8 mg/dl (1.8-2.4); Potassium 3.7 mmol/L (3.5-5.1); Sodium 136 mmol/L (136-145)
--- NOTE | 2018-09-15 11:17 | XRay Report ---
XR chest 1V portable HISTORY: 88 years-old Female sob acute shortness of breath COMPARISON: Chest radiograph 08/22/2018 TECHNIQUE: Portable AP view of the chest FINDINGS: Cardiac mediastinal and hilar silhouettes are unchanged. There is no pneumothorax, pleural effusion, focal airspace consolidation or overt pulmonary edema. Degenerative changes of the shoulders and spin e. IMPRESSION: No acute process. The above report was generated using voice recognition software. It may contain grammatical, syntax o r spelling errors. Electronically signed by: Leon Carty M.D. 09/15/2018 11:16 AM
[2018-09-15 11:18] LABS: Partial Thromboplastin Time 27.3 Seconds (21.0-31.0); Prothrombin Time 10.4 Seconds (9.0-12.0)
[2018-09-15 11:28] LABS: Albumin Globulin Ratio 1.1 (0.9-2); Alkaline Phosphatase 83 U/L (45-117); Bilirubin,Total 0.6 mg/dl (0.2-1); NT Pro B Type Natriuretic Pept 263 pg/ml (0-1800); Total Protein 6.4 gm/dl (6.4-8.2); Troponin I < 0.015 ng/ml (0-0.045)
[2018-09-15] MEDS ORDERED: OPTIRAY 320 125ml IV PRN (12:38)
--- NOTE | 2018-09-15 12:59 | CT Scan Report ---
CT angio chest PE protocol CT DOSE: 470.00 mGycm HISTORY: 88 years-old Female with PE. Acute cough with short of breath TECHNIQUE: Multiple CTA images of the chest were obtained after the intravenous administration of 98 ml Optiray 320. Coronal and sagittal MIPS were obtained from the axial data set and were submitted f or review. All measurements were obtained according to NASCET criteria. A dose lowering technique wa s utilized adhering to the principles of ALARA. COMPARISON: Chest radiograph of same day, CTA chest 02/26/2011 FINDINGS: CTA: Moderate multichamber cardiac enlargement. No pericardial effusion. Coronary arterial and aortic ghada lar calcifications are noted. There is no thoracic aortic aneurysm or dissection. Moderate mixed plaq ue formation of the thoracic aorta. There is patency of the imaged great vessels. The pulmonary arter ial tree is opacified to the level of the subsegmental branches. The segmental and subsegmental branc hes however are not well seen secondary to respiratory motion artifact. No focal filling defects iden tified to suggest pulmonary thromboembolic disease. Ill-defined linear areas of decreased attenuation about a segmental and subsegmental branches of the lingula (image 123 series 4) are favored to be ar tifactual in nature. CT CHEST: Mildly heterogeneous appearance of the thyroid. Calcified mediastinal and hilar lymph nodes compatibl e with prior granulomatous disease. There is no pneumothorax or pleural effusion. Evaluation of the l magdalena parenchyma is limited secondary to respiratory motion. 4 mm pleural-based nodule of the inferior segment lingula, image 66 series 4 appears new from comparison. There is mild subsegmental bibasilar atelectasis. Subcentimeter calcified granuloma of the superior segment left lower lobe. Moderate bila teral bronchial wall thickening. There are a few benign-appearing solid nodule right upper lobe measu ring up to approximately 3 mm. Focal area of nodularity of the right upper lobe measuring 4 mm on rosalinda ge 182 series 4 years to be in the area of mucous plugging with mild bronchial expansion. There is mo derate narrowing of the right upper lobe bronchus, image 146 series 4 likely from extrinsic compressi on. No endobronchial mass lesion identified. Small sliding-type hernia with moderate wall thickening about the distal esophagus. Hepatic steatosis . Soft tissues are unremarkable. The bones appear intact. Degenerative changes of the shoulders and s pine. IMPRESSION: 1. No acute aortic pathology or evidence of pulmonary thromboembolic disease. 2. Prior granulomatous disease. 3. Moderate narrowing of the right upper lobe bronchus likely from extrinsic mass effect with the adj acent prominent right hilar lymph nodes. Additionally, there is mild mucous plugging and expansion in volving a right upper lobe segmental bronchus. These findings could be correlated with bronchoscopy i f of further clinical concern. 4. Bilateral bronchial wall thickening suggests bronchitis or reactive airway disease. 5. There are a few scattered bilateral solid pulmonary nodules noted above measuring up to 4 mm. 6. Cardiomegaly. 7. Moderate wall thickening of the distal esophagus with small hiatal hernia. 8. Hepatic steatosis. Please refer to below summary of Fleischner criteria recommendations for follow-up of incidental CT n odules (Yohana Irwin, Guidelines for management of small pulmonary nodules detected on CT scans: A sta tement from the Fleischner Society, Radiology 237: [phone].) SOLID NODULES Multiple nodules size: <6 mm * Low risk patients: no routine follow-up * high risk patients: optional CT at 12 months Note: newly detected indeterminate nodule in persons 35 years of age or older. * Low risk patients: minimal or absent history of smoking and/or other known risk factors * high risk patients: history of smoking or of other known risk factors (e.g. first degree relative with lung cancer, or exposure to asbestos, radon, uranium) * if a nodule up to 8 mm is partly solid or is ground glass further follow-up is required after 24 m onths to exclude possible slow growing adenocarcinoma (BHAVESH) The above report was generated using voice recognition software. It may contain grammatical, syntax o r spelling errors. Electronically signed by: Leon Carty M.D. 09/15/2018 12:57 PM
[2018-09-15] MEDS ORDERED: ALBUT/IPRATROP 3MG/0.5MG NEB 3 ML VIAL NEB STA (13:36)
[2018-09-15] MEDS ORDERED: methylPREDNISolone 60 MG in SYRINGE 1 ML IV STA (13:36)
--- NOTE | 2018-09-15 14:10 | History & Physical Report ---
Date of Service September 15, 2018 Assessment & Plan (1) SOB (shortness of breath): Patient is acute respiratory failure with hypoxia. Apparently this is been going on for some time there is bronchial narrowing seen from extrinsic compression from suggestive lymphadenopathy on CT scan. Patient clinical wheezing she will be treated as a bronchospasm with steroids bronchodilators only try Pulmozyme to be a more of a mucolytic type agent. The patient was initially not placed on antibiotics but after examination the family relates her having large thick amounts of yellow mucus coughed up at times will place her on ofloxacin given her penicillin and cephalosporin and clindamycin allergy. (2) Abnormal chest CT: As described as bronchial narrowing from extrinsic compression seen on CT angiogram will consult thoracic surgery to determine best evaluation for this area. Although listed as breast cancer by her history her family is not confirmatory of this they do remember her having a breast biopsy at one point the distant past but did not remember her having any adjunctive treatment (3) Hypertension: Patient is hypertensive regime will be continued which includes losartan Coreg and hydrochlorothiazide. 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 Additionally this morning she became dyspneic with eating. Patient has significant dementia and cannot contribute anything to the conversation. The family, which are POA's, were present. They are in agreement with diagnostic discovery of the etiology of her bronchial narrowing and evaluation for the etiology of her peripheral edema. She is currently a full code but family certainly will take the diagnostic results and make further decisions based upon the significance of these findings. Patient herself does not complain of any chest pain associate with this just lightheadedness and dizziness. She did they deny her having dysphasia but says she gets very short of breath when she tries to eat. There is a recollection of breast cancer in the chart however the family is not confirmatory of that. Allergies Allergy/AdvReac Type Severity Reaction Status Date / Time clindamycin Allergy Severe SHORTNESS Verified 09/15/18 10:37 OF BREATH Cephalosporins Allergy Intermediate RASH-UPSET Verified 09/15/18 10:37 STOMACH Penicillins Allergy Intermediate RASH-UPSET Verified 09/15/18 10:37 STOMACH aspirin AdvReac Mild burning is Verified 09/15/18 10:37 stomach Home Medications Home Medications Medication Instructions Recorded Confirmed Type acetaminophen 960 mg PO Q8 PRN 07/19/18 09/15/18 History acetaminophen [Tylenol Extra 500 - 1,000 mg PO DIRECTED PRN 07/19/18 09/15/18 History Strength] albuterol sulfate 2.5 mg INHALATION Q4 PRN 07/19/18 09/15/18 History aspirin 81 mg PO DAILY 07/19/18 09/15/18 History benzonatate 200 mg PO TID PRN 07/19/18 09/15/18 History carvedilol [Coreg] 3.125 mg PO BIDM 07/19/18 09/15/18 History cholecalciferol (vitamin D3) 1,000 unit PO QPM 07/19/18 09/15/18 History [Vitamin D3] dextromethorphan-guaifenesin 10 ml PO Q6 PRN 07/19/18 09/15/18 History [Tussin DM] escitalopram oxalate 10 mg PO DAILY 07/19/18 09/15/18 History famotidine 20 mg PO Q12 PRN 07/19/18 09/15/18 History hydrochlorothiazide 25 mg PO QAM 07/19/18 09/15/18 History lorazepam 0.5 mg PO DAILY PRN 07/19/18 09/15/18 History losartan 25 mg PO DAILY 07/19/18 09/15/18 History nystatin 1 applic TOPICAL DIRECTED 07/19/18 09/15/18 History travoprost [Travatan Z] 1 drp OPB HS 07/19/18 09/15/18 History vitamins A,C,Z-gobh-vikgkc 1 tab PO DAILY 07/19/18 09/15/18 History [PreserVision AREDS] furosemide 20 mg PO DAILY PRN 09/15/18 09/15/18 History Past Med/Surg History Medical History Hearing loss (Chronic) Aphasia (Acute 04/01/13) Dysphagia (Acute 04/01/13) Hypertension (Acute 04/01/13) Right inguinal hernia (Acute) TIA (transient ischemic attack) (Acute) Dementia Surgical History No pertinent past surgical history Family History Other No pertinent family history Social History Preferred Language: Estonian Communication Ability: Impaired Hearing Ability: Use of Hearing Aid marital status: / Current Living Situation: Personal Care Facility current occupational status: retired Feels Safe at Home: Yes Smoking Status: Never smoker Hx Alcohol Use: No Hx Substance Use: No Review of Systems Review of Systems: Unobtainable due to cognitive status As per HPI the family denies any problems with bowel or bladder function of late orthopedic related issues skin related issues Physical Exam Physical Exam: The patient appeared well nourished and normally developed. Vital signs as documented. She was hypoxic on room air she is okay with supplementation currently Head exam is unremarkable. normocephalic, atraumatic Neck is without jugular venous distension, thyromegaly, or lymphademopathy Lungs are bilateral wheezing worse in the upper quadrants no focal air loss no egophony Cardiac exam reveals Rhythm is regular. No systolic murmur heard first and second heart sounds normal. Abdominal exam reveals normal bowel sounds, no masses, no organomegaly Extremities are moderately 2+ edematous bilaterally Neurologic exam is A&Ox2, no focal deficits, strength is equal bilateral she can follow commands Skin is warm Dry without bruises or lesions Results & Data Vital Signs (Past 12 Hours) Vital Signs Temp Pulse Pulse Resp BP BP Pulse Ox 09/15/18 14:00 74 20 168/81 H 91 09/15/18 13:35 64 20 167/83 H 99 09/15/18 13:00 70 18 148/116 H 99 09/15/18 12:08 61 61 20 150/91 H 96 09/15/18 11:16 68 22 167/98 H 96 09/15/18 09:57 37.5 C 83 23 152/75 H 91 Diagnostic Findings CTA: No acute aortic pathology or evidence of pulmonary thromboembolic disease. Prior granulomatous disease. Moderate narrowing of the right upper lobe bronchus likely from extrinsic mass effect with the adjacent prominent right hilar lymph nodes. Additionally, there is mild mucous plugging and expansion involving a right upper lobe segmental bronchus. These findings could be correlated with bronchoscopy if of further clinical concern. Bilateral bronchial wall thickening suggests bronchitis or reactive airway disease. There are a few scattered bilateral solid pulmonary nodules noted above measuring up to 4 mm. Cardiomegaly. Moderate wall thickening of the distal esophagus with small hiatal hernia. Hepatic steatosis ECG Additional Comments: NSR, non specific lateral t wave changes, LVH
[2018-09-15] MEDS ORDERED: POLYETHYLENE (MIRALAX) 17 GM PACK PO PRN (16:28)
[2018-09-15] MEDS ORDERED: MoRPHine SULFATE 2 MG/ML CARP IV PRN (16:28)
[2018-09-15] MEDS ORDERED: ACETAMINOPHEN 325 MG TAB PO PRN (16:28)
[2018-09-15] MEDS ORDERED: ONDANSETRON INJ 2 MG/ML 2 ML VIAL IV PRN (16:28)
[2018-09-15] MEDS ORDERED: LEVOFLOXACIN/D5W 500 MG/100 ML BAG IV SCH (17:00)
--- NOTE | 2018-09-15 17:48 | Emergency Department Note ---
Entered by Belinda Singletary acting as a scribe for Raúl Mccann MD History of Present Illness General Chief complaint: Cough Time Seen by Provider: 09/15/18 10:34 Source: family and old records reviewed History of Present Illness Provider complaint: cough Onset (ago): month(s) 2 Location: chest Maximum Pain Intensity: 3 Quality: + other (cough) Associated symptoms: + other (swelling in her legs) Treatments prior to arrival: other (Nebulizer treatments over the last 2 months ) The patient is an 88 year old female who presents to the Emergency Department with complaints of a cough for the last 2 months. Her family states that the patient has had nebulizer treatments over the last 2 months but states that these have not helped to alleviate the patient's symptoms. Her family states that the patient was unable to eat secondary to coughing. Per family, the patient has had issues in the past swallowing pills but has not had an issue swallowing food. Her family states that the patient has also had leg swelling over the last 2 weeks. Her family states that the patient's coat did not fit her and that she is swollen everywhere. Her family states that the patient was recently placed on Lasix. Her family states that the patient had ultrasounds of her legs done yesterday that did not show any blood clots. Per family, the patient has not had a heart attack but has a history of bronchitis. Her family states that the patient does not have a history of asthma or COPD but does have a history of a PE. Per family, the patient is no longer on blood thinners. Review of notes show that the patient came by ambulance from [facility] for coughing. Review of EMR shows that the patient had an ultrasound of her legs done on 09/14 that showed no blood clot in either leg. Home Medications Home Medications Medication Instructions Recorded Confirmed Type acetaminophen 960 mg PO Q8 PRN 07/19/18 09/15/18 History acetaminophen [Tylenol Extra 500 - 1,000 mg PO DIRECTED PRN 07/19/18 09/15/18 History Strength] albuterol sulfate 2.5 mg INHALATION Q4 PRN 07/19/18 09/15/18 History aspirin 81 mg PO DAILY 07/19/18 09/15/18 History benzonatate 200 mg PO TID PRN 07/19/18 09/15/18 History carvedilol [Coreg] 3.125 mg PO BIDM 07/19/18 09/15/18 History cholecalciferol (vitamin D3) 1,000 unit PO QPM 07/19/18 09/15/18 History [Vitamin D3] dextromethorphan-guaifenesin 10 ml PO Q6 PRN 07/19/18 09/15/18 History [Tussin DM] escitalopram oxalate 10 mg PO DAILY 07/19/18 09/15/18 History famotidine 20 mg PO Q12 PRN 07/19/18 09/15/18 History hydrochlorothiazide 25 mg PO QAM 07/19/18 09/15/18 History lorazepam 0.5 mg PO DAILY PRN 07/19/18 09/15/18 History losartan 25 mg PO DAILY 07/19/18 09/15/18 History nystatin 1 applic TOPICAL DIRECTED 07/19/18 09/15/18 History travoprost [Travatan Z] 1 drp OPB HS 07/19/18 09/15/18 History vitamins A,C,X-qwsh-rfzkos 1 tab PO DAILY 07/19/18 09/15/18 History [PreserVision AREDS] furosemide 20 mg PO DAILY PRN 09/15/18 09/15/18 History Allergies Allergy/AdvReac Type Severity Reaction Status Date / Time clindamycin Allergy Severe SHORTNESS Verified 09/15/18 10:37 OF BREATH Cephalosporins Allergy Intermediate RASH-UPSET Verified 09/15/18 10:37 STOMACH Penicillins Allergy Intermediate RASH-UPSET Verified 09/15/18 10:37 STOMACH aspirin AdvReac Mild burning is Verified 09/15/18 10:37 stomach Past Med/Surg History Medical History Hearing loss (Chronic) Aphasia (Acute 04/01/13) Dysphagia (Acute 04/01/13) Hypertension (Acute 04/01/13) Right inguinal hernia (Acute) TIA (transient ischemic attack) (Acute) Dementia Surgical History No pertinent past surgical history Family History Other No pertinent family history Social History Preferred Language: Cuban Communication Ability: Effective Communication Ability Comment: hard of hearing Hearing Ability: Use of Hearing Aid [employer]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 and A total of 10 systems reviewed and were otherwise negative Physical Exam Vital Signs Vital Signs - 24 hr 09/15/18 09:57 09/15/18 11:16 09/15/18 12:08 Temperature 37.5 C Temperature Source Oral Sepsis Recent Fever Within 48 Hours No Sepsis New/Unexplained Change in Mental Status No Sepsis Action Taken by Nursing No Action Required Pulse Rate 83 61 Pulse Rate [Apical] 68 61 Pulse Rhythm Regular Respiratory Rate 23 22 20 Respiratory Effort / Characteristics Non-Labored Non-Labored Respiratory Depth Normal Normal Respiratory Pattern Blood Pressure 152/75 H Blood Pressure [Left Arm] Blood Pressure [Right Arm] 167/98 H 150/91 H Blood Pressure Mean 100 Blood Pressure Mean [Left Arm] Blood Pressure Mean [Right Arm] 121 110 Blood Pressure Position Sitting Blood Pressure Position [Left Arm] Pulse Oximetry 91 96 96 Oxygen Delivery Method Room Air Nasal Cannula Nasal Cannula Oxygen Flow Rate 09/15/18 13:00 09/15/18 13:35 09/15/18 14:00 Temperature Temperature Source Sepsis Recent Fever Within 48 Hours Sepsis New/Unexplained Change in Mental Status Sepsis Action Taken by Nursing Pulse Rate Pulse Rate [Apical] 70 64 74 Pulse Rhythm Respiratory Rate 18 20 20 Respiratory Effort / Characteristics Non-Labored Short of Breath Short of Breath Respiratory Depth Normal Normal Respiratory Pattern Blood Pressure Blood Pressure [Left Arm] Blood Pressure [Right Arm] 148/116 H 167/83 H 168/81 H Blood Pressure Mean Blood Pressure Mean [Left Arm] Blood Pressure Mean [Right Arm] 126 111 110 Blood Pressure Position Blood Pressure Position [Left Arm] Pulse Oximetry 99 99 91 Oxygen Delivery Method Nasal Cannula Nasal Cannula Room Air Oxygen Flow Rate 09/15/18 14:09 09/15/18 14:10 09/15/18 14:30 Temperature Temperature Source Sepsis Recent Fever Within 48 Hours Sepsis New/Unexplained Change in Mental Status Sepsis Action Taken by Nursing Pulse Rate 61 69 Pulse Rate [Apical] 72 Pulse Rhythm Regular Regular Respiratory Rate 20 20 20 Respiratory Effort / Characteristics Short of Breath Respiratory Depth Normal Respiratory Pattern Blood Pressure Blood Pressure [Left Arm] Blood Pressure [Right Arm] 187/90 H Blood Pressure Mean Blood Pressure Mean [Left Arm] Blood Pressure Mean [Right Arm] 122 Blood Pressure Position Blood Pressure Position [Left Arm] Pulse Oximetry 90 96 96 Oxygen Delivery Method Room Air Nasal Cannula Nasal Cannula Oxygen Flow Rate 3 3 09/15/18 14:51 09/15/18 15:00 09/15/18 15:49 Temperature Temperature Source Sepsis Recent Fever Within 48 Hours Sepsis New/Unexplained Change in Mental Status Sepsis Action Taken by Nursing Pulse Rate Pulse Rate [Apical] 72 70 Pulse Rhythm Respiratory Rate 20 20 Respiratory Effort / Characteristics Spontaneous SOB on Exertion Spontaneous SOB on Exertion Spontaneous SOB on Exertion Respiratory Depth Normal Normal Normal Respiratory Pattern Regular Tachypnea Regular Tachypnea Regular Tachypnea Blood Pressure Blood Pressure [Left Arm] Blood Pressure [Right Arm] 176/99 H 169/87 H Blood Pressure Mean Blood Pressure Mean [Left Arm] Blood Pressure Mean [Right Arm] 124 114 Blood Pressure Position Blood Pressure Position [Left Arm] Pulse Oximetry 95 98 Oxygen Delivery Method Nasal Cannula Nasal Cannula Nasal Cannula Oxygen Flow Rate 3 3 3 09/15/18 16:04 09/15/18 16:49 Temperature 37.5 C 36.5 C Temperature Source Oral Oral Sepsis Recent Fever Within 48 Hours Sepsis New/Unexplained Change in Mental Status Sepsis Action Taken by Nursing Pulse Rate 70 Pulse Rate [Apical] 78 Pulse Rhythm Respiratory Rate 20 18 Respiratory Effort / Characteristics Non-Labored Respiratory Depth Normal Respiratory Pattern Blood Pressure 169/87 H Blood Pressure [Left Arm] 168/87 H Blood Pressure [Right Arm] Blood Pressure Mean Blood Pressure Mean [Left Arm] 114 Blood Pressure Mean [Right Arm] Blood Pressure Position Blood Pressure Position [Left Arm] Sitting Pulse Oximetry 98 93 Oxygen Delivery Method Nasal Cannula Nasal Cannula Oxygen Flow Rate 2 2 GENERAL: Patient is in no acute distress. HEENT: No acute trauma, normocephalic atraumatic, mucous membranes moist, no nasal congestion, no scleral icterus. NECK: No stridor, no adenopathy, no meningismus, trachea is midline. LUNGS: Diminished breath sounds bilaterally. Equal breath sounds. No respiratory distress. Wheezing bilaterally. HEART: Without murmurs gallops or rubs, regular rate and rhythm. ABDOMEN: Soft, nontender, bowel sounds positive, no hernias, no peritonitis. EXTREMITIES: No cyanosis, full range of motion of all the joints without pain or difficulty, no signs for acute trauma. Moderate bilateral pedal edema. NEUROLOGIC: Mild confusion noted, no acute motor or sensory deficits, no focal weakness. SKIN: No rash, no jaundice, no diaphoresis. Course 1038: The patient was evaluated in room C5. A history and physical were performed. 1338: The patient was short of breath and light-headed when she tried to go to the bathroom. 1352: I updated the patient and her family who verbalized agreement and understanding of the treatment plan. I went over the patient's CT results. 1357: I discussed the patient's case with Dr. Albert Campos who will evaluate the patient for further management. Consultations Consultation #1: Dr. Albert Campos Time: 13:57 Administered Medications Ioversol (Optiray 320 125ml) 98 ml IV ONCE PRN PRN Reason: Interaction Checking Stop: 09/19/18 12:37 Last Admin: 09/15/18 12:38 Dose: 98 ml Documented by: [id number] Discontinued Medications Albuterol (Duoneb) 3 ml INH NOW STA Stop: 09/15/18 10:50 Last Admin: 09/15/18 11:14 Dose: 3 ml Documented by: [id number] Albuterol (Duoneb) 3 ml NEB NOW STA Stop: 09/15/18 13:37 Last Admin: 09/15/18 13:41 Dose: 3 ml Documented by: [id number] Methylprednisolone 60 mg/ (Syringe) 1.96 mls @ 1.5 mls/min IV NOW STA Stop: 09/15/18 13:37 Last Admin: 09/15/18 13:42 Dose: Not Given Documented by: [id number] Methylprednisolone (Solumedrol) Confirm Administered Dose 80 mg .ROUTE .STK-MED ONE Stop: 09/15/18 13:40 Last Admin: 09/15/18 13:41 Dose: 60 mg Documented by: [id number] Medical Decision Making Differential Diagnosis Differentials include bronchitis or pneumonia, CHF, PE, anemia, electrolyte imbalance, renal failure, fluid overload, and thyroid disorder. Medical Records Attestation: I reviewed the patient's medical records. Home Medications Current Medication List: was personally reviewed by me Laboratory Data Attestation: I reviewed the patient's lab results. Result diagrams: 09/15/18 10:19 09/15/18 10:19 Lab Results 09/15/18 09/15/18 09/15/18 Range/Units 10:19 10:19 10:19 WBC 13.06 H (4.8-10.8) K/uL RBC 3.96 L (4.2-5.4) M/uL Hgb 12.4 (12.0-16.0) g/dL Hct 37.5 (37-47) % MCV 94.7 (80-100) fL MCH 31.3 (25-34) pg MCHC 33.1 (32-36) g/dL RDW Std Deviation 52.6 H (36.4-46.3) fL RDW Coeff of Mandi 15.3 H (11.5-14.5) % Plt Count 595 H (130-400) K/uL MPV 11.2 H (7.4-10.4) fL Immature Gran % (Auto) 1.0 % Neut % (Auto) 68.9 % Lymph % (Auto) 11.9 % Brooke % (Auto) 10.1 % Eos % (Auto) 7.9 % Baso % (Auto) 0.2 % Immature Gran # (Auto) 0.13 H (0.00-0.02) K/uL Neut # (Auto) 8.99 H (1.4-6.5) K/uL Lymph # (Auto) 1.56 (1.2-3.4) K/uL Brooke # (Auto) 1.32 H (0.11-0.59) K/uL Eos # (Auto) 1.03 H (0-0.5) K/uL Baso # (Auto) 0.03 (0-0.2) K/uL PT 10.4 (9.0-12.0) Seconds INR 1.0 (0.9-1.1) APTT 27.3 (21.0-31.0) Seconds PTT Ratio 1.0 Sodium 136 (136-145) mmol/L Potassium 3.7 (3.5-5.1) mmol/L Chloride 99 (98-107) mmol/L Carbon Dioxide 31 (21-32) mmol/L Anion Gap 6.0 (3-11) BUN 21 H (7-18) mg/dl Creatinine 1.10 (0.6-1.2) mg/dl Est Cr Clr Drug Dosing 29.2 ml/min Est GFR ( Amer) 51.9 Est GFR (Non-Af Amer) 44.8 BUN/Creatinine Ratio 19.1 (10-20) Glucose 144 H (70-99) mg/dl Calcium 8.6 (8.5-10.1) mg/dl Magnesium 1.8 (1.8-2.4) mg/dl Total Bilirubin 0.6 (0.2-1) mg/dl AST 21 (15-37) U/L ALT 27 (12-78) U/L Alkaline Phosphatase 83 (45-117) U/L Troponin I < 0.015 (0-0.045) ng/ml NT-Pro-B Natriuret Pep 263 (0-1800) pg/ml Total Protein 6.4 (6.4-8.2) gm/dl Albumin 3.4 (3.4-5.0) gm/dl Globulin 3.0 (2.5-4.0) gm/dl Albumin/Globulin Ratio 1.1 (0.9-2) TSH 2.330 (0.300-4.500) uIu/ml 09/15/18 Range/Units 10:19 WBC (4.8-10.8) K/uL RBC (4.2-5.4) M/uL Hgb (12.0-16.0) g/dL Hct (37-47) % MCV (80-100) fL MCH (25-34) pg MCHC (32-36) g/dL RDW Std Deviation (36.4-46.3) fL RDW Coeff of Mandi (11.5-14.5) % Plt Count (130-400) K/uL MPV (7.4-10.4) fL Immature Gran % (Auto) % Neut % (Auto) % Lymph % (Auto) % Brooke % (Auto) % Eos % (Auto) % Baso % (Auto) % Immature Gran # (Auto) (0.00-0.02) K/uL Neut # (Auto) (1.4-6.5) K/uL Lymph # (Auto) (1.2-3.4) K/uL Brooke # (Auto) (0.11-0.59) K/uL Eos # (Auto) (0-0.5) K/uL Baso # (Auto) (0-0.2) K/uL PT (9.0-12.0) Seconds INR (0.9-1.1) APTT (21.0-31.0) Seconds PTT Ratio Sodium (136-145) mmol/L Potassium (3.5-5.1) mmol/L Chloride (98-107) mmol/L Carbon Dioxide (21-32) mmol/L Anion Gap (3-11) BUN (7-18) mg/dl Creatinine (0.6-1.2) mg/dl Est Cr Clr Drug Dosing ml/min Est GFR ( Amer) Est GFR (Non-Af Amer) BUN/Creatinine Ratio (10-20) Glucose (70-99) mg/dl Calcium (8.5-10.1) mg/dl Magnesium (1.8-2.4) mg/dl Total Bilirubin (0.2-1) mg/dl AST (15-37) U/L ALT (12-78) U/L Alkaline Phosphatase (45-117) U/L Troponin I (0-0.045) ng/ml NT-Pro-B Natriuret Pep (0-1800) pg/ml Total Protein (6.4-8.2) gm/dl Albumin (3.4-5.0) gm/dl Globulin (2.5-4.0) gm/dl Albumin/Globulin Ratio (0.9-2) TSH Cancelled (0.300-4.500) uIu/ml Imaging Data Radiologist's Impression: Radiology results as stated below per my review and the radiologist's interpretation: XR chest 1V portable HISTORY: 88 years-old Female sob acute shortness of breath COMPARISON: Chest radiograph 08/22/2018 TECHNIQUE: Portable AP view of the chest FINDINGS: Cardiac mediastinal and hilar silhouettes are unchanged. There is no pneumothorax, pleural effusion, focal airspace consolidation or overt pulmonary edema. Degenerative changes of the shoulders and spine. IMPRESSION: No acute process. The above report was generated using voice recognition software. It may contain grammatical, syntax or spelling errors. Electronically signed by: Leon Carty M.D. 09/15/2018 11:[address] angio chest PE protocol CT DOSE: 470.00 mGycm HISTORY: 88 years-old Female with PE. Acute cough with short of breath TECHNIQUE: Multiple CTA images of the chest were obtained after the intravenous administration of 98 ml Optiray 320. Coronal and sagittal MIPS were obtained from the axial data set and were submitted for review. All measurements were obtained according to NASCET criteria. A dose lowering technique was utilized adhering to the principles of ALARA. COMPARISON: Chest radiograph of same day, CTA chest 02/26/2011 FINDINGS: CTA: Moderate multichamber cardiac enlargement. No pericardial effusion. Coronary arterial and aortic annular calcifications are noted. There is no thoracic aortic aneurysm or dissection. Moderate mixed plaque formation of the thoracic aorta. There is patency of the imaged great vessels. The pulmonary arterial tree is opacified to the level of the subsegmental branches. The segmental and subsegmental branches however are not well seen secondary to respiratory motion artifact. No focal filling defects identified to suggest pulmonary thromboembolic disease. Ill-defined linear areas of decreased attenuation about a segmental and subsegmental branches of the lingula (image 123 series 4) are fa vored to be artifactual in nature. CT CHEST: Mildly heterogeneous appearance of the thyroid. Calcified mediastinal and hilar lymph nodes compatible with prior granulomatous disease. There is no pn eumothorax or pleural effusion. Evaluation of the lung parenchyma is limited secondary to respiratory motion. 4 mm pleural-based nodule of the inferior segment lingula, image 66 series 4 appears new from comparison. There is mild subsegmental bibasilar atelectasis. Subcentimeter calcified granuloma of the superior segment left lower lobe. Moderate bilateral bronchial wall thickening. There are a few benign-appearing solid nodule right upper lobe measuring up to approximately 3 mm. Focal area of nodularity of the right upper lobe measuring 4 mm on image 182 series 4 years to be in the area of mucous plugging with mild bronchial expansion. There is moderate narrowing of the right upper lobe br onchus, image 146 series 4 likely from extrinsic compression. No endobronchial mass lesion identified. Small sliding-type hernia with moderate wall thickening about the distal esophagus. Hepatic steatosis. Soft tissues are unremarkable. The bones appear intact. Degenerative changes of the shoulders and spine. IMPRESSION: 1. No acute aortic pathology or evidence of pulmonary thromboembolic disease. 2. Prior granulomatous disease. 3. Moderate narrowing of the right upper lobe bronchus likely from extrinsic mass effect with the adjacent prominent right hilar lymph nodes. Additionally, there is mild mucous plugging and expansion involving a right upper lobe segmental bronchus. These findings could be correlated with bronchoscopy if of further clinical concern. 4. Bilateral bronchial wall thickening suggests bronchitis or reactive airway disease. 5. There are a few scattered bilateral solid pulmonary nodules noted above measuring up to 4 mm. 6. Cardiomegaly. 7. Moderate wall thickening of the distal esophagus with small hiatal hernia. 8. Hepatic steatosis. Please refer to below summary of Fleischner criteria recommendations for follow- up of incidental CT nodules (Yohana Irwin, Guidelines for management of small pulmonary nodules detected on CT scans: A statement from the Fleischner Society, Radiology 237: [phone].) SOLID NODULES Multiple nodules size: <6 mm * Low risk patients: no routine follow-up * high risk patients: optional CT at 12 months Note: newly detected indeterminate nodule in persons 35 years of age or older. * Low risk patients: minimal or absent history of smoking and/or other known risk factors * high risk patients: history of smoking or of other known risk factors (e.g. first degree relative with lung cancer, or exposure to asbestos, radon, uranium) * if a nodule up to 8 mm is partly solid or is ground glass further follow-up is required after 24 months to exclude possible slow growing adenocarcinoma (BHAVESH) The above report was generated using voice recognition software. It may contain grammatical, syntax or spelling errors. Electronically signed by: Leon Carty M.D. 09/15/2018 12:57 PM ECG Data Attestation: I personally reviewed and interpreted this ECG as follows: Indication: other (cough) Rate (beats per minute): 76 Rhythm: sinus rhythm Findings: + other (LVH) and + PVC; no ST elevation Blood Pressure Blood Pressure Findings: Elevated blood pressure Blood Pressure Disposition: further management by hospitalist VÍCTOR Narrative There is a slight leukocytosis, this could be consistent with infection or the stress of her situation. No concerning anemia. No coagulopathy. Renal panel testing does not show renal failure or significant electrolyte abnormality requiring correction. There was no hepatitis. Patient appeared to be in a euthyroid state. EKG shows a sinus rhythm, no acute ischemia. Cardiac enzyme testing x1 is not consistent with acute cardiac injury. Chest x-ray did not show pneumonia, CHF or pneumothorax. Chest CT shows evidence for narrowing of a bronchus secondary to adenopathy. Mucous plugging and bronchitis was seen. No findings suggestive of pneumonia, no findings suggesting PE. The patient was wheezing on exam. She was given a DuoNeb, a second DuoNeb was given during the ER stay. She received IV Solu-Medrol to help with the bronchospasm. Patient had a near syncopal spell and became quite dyspneic when she tried to use the bedside commode. She was placed back in bed. The patient has had symptoms now for weeks if not longer, she seems to be worsening. She has been treated as an outpatient unsuccessfully. Currently, she has edema to her lower extremities, she is wheezing and dyspneic. She has an abnormal chest CT that requires further work-up. I do think a hospital stay is warranted. I spoke to the patient and case management. The on-call hospitalist was consulted. Impression & Plan SOB (shortness of breath), Cough, Wheezing, Abnormal chest CT Discharge Plan Visit Data Chief Complaint: Cough ED Provider: Raúl Mccann Discharge Problem: SOB (shortness of breath), Cough, Wheezing, Abnormal chest CT Patient Disposition: Being Evaluated by Hospitalist Discharge Instructions Interventions: ED Discharge Assessment Last Done: 09/15/18 16:04 The scribe's documentation has been prepared under my direction and personally reviewed by me in its entirety. I confirm that the note above accurately reflec ts all work, treatment, procedures, and medical decision making performed by me.
[2018-09-15] MEDS: CARVEDILOL 3.125 MG TAB PO SCH (18:25)
[2018-09-15] MEDS: GUAIFENESIN/DEXTROM SYRUP 200MG/20MG 10ML UDC PO PRN (19:04)
[2018-09-15] MEDS: ALBUT/IPRATROP 3MG/0.5MG NEB 3 ML VIAL INH SCH (19:22)
[2018-09-15] MEDS: DORNASE ALFA 2.5 ML AMP INH SCH (19:36)
[2018-09-15] MEDS: methylPREDNISolone 40 MG in SYRINGE 0 ML IV SCH (19:42)
[2018-09-15] MEDS: TRAVOPROST Z 0.004% OPH SOLN 2.5 ML BTL OPB SCH (21:22)
[2018-09-15] MEDS: HEPARIN SOD 5,000 UNIT/0.5 ML VIAL SQ SCH (21:23)
[2018-09-16] MEDS: ALBUT/IPRATROP 3MG/0.5MG NEB 3 ML VIAL INH SCH ×4 (01:58→19:09)
[2018-09-16 06:40] LABS: BUN Creatinine Ratio 26.4 (10-20); Calcium 8.9 mg/dl (8.5-10.1); Creatinine Clr Calc Pharmacy 40.9 ml/min; Est GFR (Non-African American) 53.5; Potassium 3.4 mmol/L (3.5-5.1)
[2018-09-16] MEDS: DORNASE ALFA 2.5 ML AMP INH SCH (07:04)
[2018-09-16] MEDS: LOSARTAN POTASSIUM 25 MG TAB PO SCH (07:40)
[2018-09-16] MEDS: hydroCHLOROthiazide 25 MG TAB PO SCH (07:40)
[2018-09-16] MEDS: ESCITALOPRAM OXALATE 10 MG TAB PO SCH (07:40)
[2018-09-16] MEDS: CEROVITE ADV FORMULA TAB PO SCH (07:40)
[2018-09-16] MEDS: ASPIRIN 81 MG ECTAB PO SCH (07:40)
[2018-09-16] MEDS: CARVEDILOL 3.125 MG TAB PO SCH ×2 (07:40→17:58)
[2018-09-16] MEDS: HEPARIN SOD 5,000 UNIT/0.5 ML VIAL SQ SCH ×2 (07:41→19:52)
[2018-09-16] MEDS: methylPREDNISolone 40 MG in SYRINGE 0 ML IV SCH ×2 (08:10→19:52)
--- NOTE | 2018-09-16 11:08 | Family Medicine Progress Note ---
Date of Service September 16, 2018 Assessment & Plan (1) Depression due to dementia: (2) GERD (gastroesophageal reflux disease): (3) SOB (shortness of breath): Acute respiratory failure-hypoxia: -Occurring for a few months per family with exertion and eating. A/w fatigue and dizziness -On admission had wheezing -CTA chest: RUL moderate bronchial narrowing seen from extrinsic compression from suggestive lymphadenopathy; prior granulomatous disease; concern for bronchitis/RAD, cardiomegaly, few scattered solid pulm nodules up to 4mm, small hiatal hernia and thick distal esophagus -Echo 06/2011 EF 55-60% grade I diastolic dysfunction -repeat ECHO ordered to further evaluate sob connor given LE edema: EF 60-65%, normal systolic function, no regional wall motion abnormality mild concentric left ventricular hypertrophy mild tricuspid valve regurg -methylpred 40mg BID -Levaquin day 2 -Duoneb Q6H sarah -Thoracic surgery consult to further evaluate bronchial narrowing (history listed breast cancer family remembers biopsy only, pt unaware but demented) Hypertension: -Continue losartan Coreg and hydrochlorothiazide, aspirin GERD: -continue pepcid Depression due to dementia -continue lexapro LE edema: Likely venous stasis -ECHO EF 60-65%, normal systolic function, no regional wall motion abnormality mild concentric left ventricular hypertrophy mild tricuspid valve regurg Hypokalemia -K 3.4 -repleted with KCL 40meq x 1 FEN/GI: concern for hypovolemia (dry mucous membranes and elevated BUN/Cr ratio) started on IVF 80cc/hr DV prop: Hep Code: Full Dispo: pending further work up and clinical improvement (4) Cough: (5) Wheezing: (6) Abnormal chest CT: (7) Osteoarthritis: Supervising Physician Co-Signing Physician Notes I personally examined the patient and verified all vasquez points of history and exam, discussed case, and agree with decision making with Dr Gomez. Feeling okay right now. Breathing is okay right now. No abdominal pain. Vitals noted, in general she is awake and alert pleasant no distress. HEENT normocephalic atraumatic mucous members moist. Breathing is unlabored no accessory muscle use. Lungs are overall fairly clear without any notable rales rhonchi or wheezes. Dyspneawith airway impingementawait thoracic surgery input, would anticipate bronchoscopy unless family declines. Based on discussions yesterday though it sounds like they would like an etiology. Otherwise as above Subjective This AM pt sitting in bedside chair when examined. Reports cough and sob. A/w some dizziness and sore throat. Initially also had fever/chills and abdominal pain which has improved. Otherwise denies any headache, cp, n/v, dysuria. Review of Systems Review of Systems: As per HPI Physical Exam Physical Exam: General: In NAD, pleasant CV: RRR, no m/r/g PULM: Occasional rales appreciated, equal breath sounds bilaterally ABDOMEN: +BS, somewhat distended and TTP over upper abdomen LE: no calf TTP, 2+ b/l LE edema Results & Data Vital Signs (Past 12 Hours) Vital Signs Temp Pulse Pulse Resp BP Pulse Ox 09/16/18 10:00 96 H 09/16/18 07:24 37.2 C 93 H 18 163/74 H 99 09/16/18 07:06 18 90 09/16/18 04:00 36.9 C 88 18 146/82 H 93 09/16/18 01:58 83 16 91 09/16/18 00:00 37.0 C 87 20 125/72 93 09/15/18 23:12 82 Laboratory Results Abnormal lab results 09/16/18 Range/Units 05:52 Potassium 3.4 L (3.5-5.1) mmol/L Carbon Dioxide 33 H (21-32) mmol/L BUN 25 H (7-18) mg/dl BUN/Creatinine Ratio 26.4 H (10-20) Glucose 142 H (70-99) mg/dl Diagnostic Findings XR chest 1V portable HISTORY: 88 years-old Female sob acute shortness of breath COMPARISON: Chest radiograph 08/22/2018 TECHNIQUE: Portable AP view of the chest FINDINGS: Cardiac mediastinal and hilar silhouettes are unchanged. There is no pneumothorax, pleural effusion, focal airspace consolidation or overt pulmonary edema. Degenerative changes of the shoulders and spine. IMPRESSION: No acute process. CT angio chest PE protocol CT DOSE: 470.00 mGycm HISTORY: 88 years-old Female with PE. Acute cough with short of breath TECHNIQUE: Multiple CTA images of the chest were obtained after the intravenous administration of 98 ml Optiray 320. Coronal and sagittal MIPS were obtained from the axial data set and were submitted for review. All measurements were obtained according to NASCET criteria. A dose lowering technique was utilized adhering to the principles of ALARA. COMPARISON: Chest radiograph of same day, CTA chest 02/26/2011 FINDINGS: CTA: Moderate multichamber cardiac enlargement. No pericardial effusion. Coronary arterial and aortic annular calcifications are noted. There is no thoracic aortic aneurysm or dissection. Moderate mixed plaque formation of the thoracic aorta. There is patency of the imaged great vessels. The pulmonary arterial tree is opacified to the level of the subsegmental branches. The segmental and subsegmental branches however are not well seen secondary to respiratory motion artifact. No focal filling defects identified to suggest pulmonary thromboembolic disease. Ill-defined linear areas of decreased attenuation about a segmental and subsegmental branches of the lingula (image 123 series 4) are favored to be artifactual in nature. CT CHEST: Mildly heterogeneous appearance of the thyroid. Calcified mediastinal and hilar lymph nodes compatible with prior granulomatous disease. There is no pneumothorax or pleural effusion. Evaluation of the lung parenchyma is limited secondary to respiratory motion. 4 mm pleural-based nodule of the inferior segment lingula, image 66 series 4 appears new from comparison. There is mild subsegmental bibasilar atelectasis. Subcentimeter calcified granuloma of the superior segment left lower lobe. Moderate bilateral bronchial wall thickening. There are a few benign-appearing solid nodule right upper lobe measuring up to approximately 3 mm. Focal area of nodularity of the right upper lobe measuring 4 mm on image 182 series 4 years to be in the area of mucous plugging with mild bronchial expansion. There is moderate narrowing of the right upper lobe bronchus, image 146 series 4 likely from extrinsic compression. No endobronchial mass lesion identified. Small sliding-type hernia with moderate wall thickening about the distal esopha nina. Hepatic steatosis. Soft tissues are unremarkable. The bones appear intact. Degenerative changes of the shoulders and spine. IMPRESSION: 1. No acute aortic pathology or evidence of pulmonary thromboembolic disease. 2. Prior granulomatous disease. 3. Moderate narrowing of the right upper lobe bronchus likely from extrinsic mass effect with the adjacent prominent right hilar lymph nodes. Additionally, there is mild mucous plugging and expansion involving a right upper lobe segmental bronchus. These findings could be correlated with bronchoscopy if of further clinical concern. 4. Bilateral bronchial wall thickening suggests bronchitis or reactive airway disease. 5. There are a few scattered bilateral solid pulmonary nodules noted above measuring up to 4 mm. 6. Cardiomegaly. 7. Moderate wall thickening of the distal esophagus with small hiatal hernia. 8. Hepatic steatosis. Resident Activity Tracking Resident Involvement: Resident Care Provided Care Provided: Adult [facility]
[2018-09-16] MEDS ORDERED: POTASSIUM CHLORIDE 20 MEQ TABCR PO STA (11:10)
[2018-09-16] MEDS: SODIUM CHLORIDE 0.9% 1000ML 1,000 ML IV SCH (12:09)
[2018-09-16] MEDS: LEVOFLOXACIN/D5W 250 MG/50 ML BAG IV SCH (17:58)
[2018-09-16] MEDS: LORazepam 0.5 MG TAB PO PRN (19:52)
[2018-09-16] MEDS: TRAVOPROST Z 0.004% OPH SOLN 2.5 ML BTL OPB SCH (19:53)
[2018-09-16] MEDS: GUAIFENESIN/DEXTROM SYRUP 200MG/20MG 10ML UDC PO PRN (20:30)
--- NOTE | 2018-09-16 22:58 | Consultation Report ---
DATE OF CONSULTATION: 09/16/2018 REASON FOR CONSULTATION: 1. Narrowing of the right main stem bronchus and bronchus intermedius. 2. Lymphadenopathy. 3. Right-sided wheezing with persistent cough. 4. Dementia. HISTORY OF PRESENT ILLNESS: This is an 88-year-old who is pleasantly confused, who was found to have acute respiratory failure with hypoxia. We see some apparent narrowing from extrinsic compression on her CT scan and she was admitted and I was asked to see her. She has had a history of gastroesophageal reflux disease. However, her daughter states that she developed a bronchitis and/or pneumonia in April and has "not been right since." She coughs and if she begins coughing, she cannot eat because she coughs her food up. It does not sound like she has swallowing difficulties in general. I had a long talk with the patient and her daughter about this. PAST MEDICAL HISTORY: 1. Hypertension. 2. Transient ischemic attacks. 3. Dementia. 4. Hearing loss. PAST SURGICAL HISTORY: 5, para 5. MEDICATIONS: Please see list that include inhalers, aspirin, Coreg, Lexapro, Pepcid, hydrochlorothiazide, Ativan, losartan and Lasix. ALLERGIES: CLINDAMYCIN, CEPHALOSPORINS AND PENICILLIN CAUSE HER TO HAVE AN APPARENT RASH AND SOME SHORTNESS OF BREATH. SOCIAL HISTORY: The patient has never smoked cigarettes. She lives in a long care facility. She has a supportive family and her daughter who is a power of psychologist social was present during the interview. FAMILY MEDICAL HISTORY: Noncontributory in this 88-year-old. REVIEW OF SYSTEMS: The patient's daughter states she really has not lost weight, but she has been very concerned about her inability to eat and cough. The cough has been persistent for the last 4 months. She denies any wound breakdown. She wears hearing aids and glasses, but has not had any acute impairment in either of the systems over the last 6 months. She has been moving her bowels. She denies pain. Rest of her review of systems was unremarkable. PHYSICAL EXAMINATION: GENERAL: This is a 5 feet 3 inch, 175 pound female who is pleasantly sitting in a chair. HEENT: She wears glasses. Extraocular movements are intact. She has no nasolabial flattening. Tongue is midline. NECK: Supple. I really do not detect any lymphadenopathy or bruits. LUNGS: She does have wheezing in the right mid lung field. I do not detect any on the left. CARDIOVASCULAR: She has a regular rate and rhythm of her heart. ABDOMEN: Soft and really nontender. EXTREMITIES: She has good pulses in her upper extremities and also has good pulses in her posterior tibial area, although she does have edema of her lower legs. It is about 1+. Her daughter states it has improved. She has no joint effusions. The patient is pleasantly confused. She was able to tell me how many children she had after much deliberation. She follows commands, moves all extremities to command. DATA: I reviewed her CT scan. She has thickening in the bronchus intermedius in right lower lobe and right middle lobe area. It is possible she has some lymphadenopathy or is causing her to have a right middle lobe syndrome. ASSESSMENT AND PLAN: Persistent cough for the last few months with some airway abnormalities in the right lower lobe and middle lobe and bronchus intermedius. We are going to perform an endobronchial ultrasound with biopsy tomorrow. I had a long talk with the patient's daughter about whether to proceed with this; however, she states she does not want her mother coughing if we can do something to help this. We discussed different reasons for this including right middle lobe syndrome and possible malignancy or chronic infection. She understands and would like us to proceed. We will offer her this tomorrow.
[2018-09-17] MEDS: ALBUT/IPRATROP 3MG/0.5MG NEB 3 ML VIAL INH SCH ×4 (01:51→19:02)
[2018-09-17] MEDS: SODIUM CHLORIDE 0.9% 1000ML 1,000 ML IV SCH ×3 (03:40→18:27)
[2018-09-17 06:16] LABS: Mean Corpuscular Hgb Conc 33.3 g/dL (32-36); Mean Corpuscular Volume 93.5 fL (80-100); Mean Platelet Volume 10.9 fL (7.4-10.4); Platelet Count 697 K/uL (130-400); RDW Coefficient of Variation 15.5 % (11.5-14.5); RDW Standard Deviation 52.2 fL (36.4-46.3); Red Blood Count 3.85 M/uL (4.2-5.4); White Blood Count 23.37 K/uL (4.8-10.8)
[2018-09-17 06:36] LABS: Basophils # (auto) 0.01 K/uL (0-0.2); Immature Granulocytes # (auto) 0.19 K/uL (0.00-0.02); Immature Granulocytes % (auto) 0.8 %; Lymphocytes # (auto) 1.28 K/uL (1.2-3.4); Lymphocytes % (auto) 5.5 %; Monocytes # (auto) 1.02 K/uL (0.11-0.59); Monocytes % (auto) 4.4 %; Neutrophils # (auto) 20.87 K/uL (1.4-6.5); Neutrophils % (auto) 89.3 %
[2018-09-17 06:49] LABS: BUN Creatinine Ratio 29.2 (10-20); Calcium 8.6 mg/dl (8.5-10.1); Creatinine Clr Calc Pharmacy 42.1 ml/min; Est GFR (African American) 64.4; Est GFR (Non-African American) 55.6; Potassium 3.9 mmol/L (3.5-5.1)
[2018-09-17] MEDS: HEPARIN SOD 5,000 UNIT/0.5 ML VIAL SQ SCH ×2 (09:00→21:34)
[2018-09-17] MEDS: CARVEDILOL 3.125 MG TAB PO SCH ×2 (09:00→16:17)
[2018-09-17] MEDS: CEROVITE ADV FORMULA TAB PO SCH (09:00)
--- NOTE | 2018-09-17 11:10 | History & Physical Bridge Note ---
Date of Service September 17, 2018 History & Physical Bridge Note I have examined the patient, reviewed the History & Physical and in the interval since the performance of the History & Physical I have noted the following changes of clinical significance: no changes noted
[2018-09-17] MEDS ORDERED: PROPOFOL IV EMULSION 10 MG/ML 20 ML VIAL IV ONE (11:12)
[2018-09-17] MEDS ORDERED: ONDANSETRON INJ 2 MG/ML 2 ML VIAL ONE (11:12)
[2018-09-17] MEDS ORDERED: LIDOCAINE HCL 2% 2 ML VIAL/AMP(20MG/ML) INFIL ONE (11:12)
--- NOTE | 2018-09-17 11:28 | Anesthesiology Consultation ---
Date of Service September 17, 2018 Assessment & Plan Chart Review Chart Review: Acceptable Risk for Surgery and Patient NOT seen in Pre Admission Testing Consults Requested none ASA [id number] Proposed Anesthesia Anesthesia Type: General Anesthesia Line Insertion: Arterial line Risk / Benefits Reviewed With: PT / POA / Parent / Guardian, Accepts Plan and Informed Consent Obtained History Surgery Operation Date: 09/17/18 09:35 Proposed Procedures p Endobronchial Ultrasound - Antonio Jung MD, FACS Height/Weight Height: 5 ft 3 in Weight: 81.8 kg Allergies Allergy/AdvReac Type Severity Reaction Status Date / Time clindamycin Allergy Severe SHORTNESS Verified 09/15/18 10:37 OF BREATH Cephalosporins Allergy Intermediate RASH-UPSET Verified 09/15/18 10:37 STOMACH Penicillins Allergy Intermediate RASH-UPSET Verified 09/15/18 10:37 STOMACH aspirin AdvReac Mild burning is Verified 09/15/18 10:37 stomach Medications Home Medications Medication Instructions Recorded Confirmed Last Taken acetaminophen 960 mg PO Q8 PRN 07/19/18 09/15/18 Unknown acetaminophen [Tylenol Extra 500 - 1,000 mg PO DIRECTED PRN 07/19/18 09/15/18 Unknown Strength] albuterol sulfate 2.5 mg INHALATION Q4 PRN 07/19/18 09/15/18 Unknown aspirin 81 mg PO DAILY 07/19/18 09/15/18 07/19/18 benzonatate 200 mg PO TID PRN 07/19/18 09/15/18 Unknown carvedilol [Coreg] 3.125 mg PO BIDM 07/19/18 09/15/18 07/19/18 cholecalciferol (vitamin D3) 1,000 unit PO QPM 07/19/18 09/15/18 07/18/18 [Vitamin D3] dextromethorphan-guaifenesin 10 ml PO Q6 PRN 07/19/18 09/15/18 Unknown [Tussin DM] escitalopram oxalate 10 mg PO DAILY 07/19/18 09/15/18 07/19/18 famotidine 20 mg PO Q12 PRN 07/19/18 09/15/18 07/18/18 hydrochlorothiazide 25 mg PO QAM 07/19/18 09/15/18 07/19/18 lorazepam 0.5 mg PO DAILY PRN 07/19/18 09/15/18 Unknown losartan 25 mg PO DAILY 07/19/18 09/15/18 07/19/18 nystatin 1 applic TOPICAL DIRECTED 07/19/18 09/15/18 Unknown travoprost [Travatan Z] 1 drp OPB HS 07/19/18 09/15/18 07/18/18 vitamins A,C,[id number] 1 tab PO DAILY 07/19/18 09/15/18 07/19/18 [PreserVision AREDS] furosemide 20 mg PO DAILY PRN 09/15/18 09/15/18 Unknown Active Medications Generic Name Dose Route Start Last Admin Trade Name Freq PRN Reason Stop Dose Admin Albuterol 3 ml 09/15/18 20:00 09/17/18 07:18 Duoneb INH 10/15/18 19:59 3 ml Q6R RAI Administration Aspirin 81 mg 09/16/18 09:00 09/16/18 07:40 Ecotrin Ectab PO 10/16/18 08:59 81 mg DAILY RAI Administration Carvedilol 3.125 mg 09/15/18 17:00 09/16/18 17:58 Coreg PO 10/15/18 16:59 3.125 mg BIDM RAI Administration Escitalopram Oxalate 10 mg 09/16/18 09:00 09/16/18 07:40 Lexapro PO 10/16/18 08:59 10 mg DAILY RAI Administration Guaifenesin/Dextromethorphan 10 ml 09/15/18 16:51 09/16/18 20:30 Robitussin Cough-Chest Dm PO 10/15/18 16:50 10 ml Q6H PRN Administration Cough Heparin Sodium (Porcine) 5,000 units 09/15/18 21:00 09/16/18 19:52 Heparin Sodium (Porcine) SQ 10/15/18 20:59 Not Given Q12 RAI Hydrochlorothiazide 25 mg 09/16/18 09:00 09/16/18 07:40 Hctz PO 10/16/18 08:59 25 mg QAM RAI Administration Methylprednisolone 40 mg/ 0.64 mls @ 1.5 mls/min 09/15/18 20:00 09/16/18 19:52 Syringe IV 10/15/18 19:59 1.5 mls/min Q12H RAI Administration Levofloxacin/Dextrose 250 mg in 50 mls @ 50 mls/hr 09/16/18 17:00 09/16/18 18:51 Levaquin/D5w IV 09/22/18 16:59 Infused Q24H RAI Infusion Protocol Sodium Chloride 1,000 mls @ 80 mls/hr 09/16/18 11:15 09/17/18 03:40 Nss 1000ml IV 10/16/18 11:14 80 mls/hr .[id number] RAI Administration Ioversol 98 ml 09/15/18 12:38 09/15/18 12:38 Optiray 320 125ml IV 09/19/18 12:37 98 ml ONCE PRN Administration Interaction Checking Lorazepam 0.5 mg 09/15/18 16:28 09/16/18 19:52 Ativan PO 10/15/18 16:27 0.5 mg DAILY PRN Administration Anxiety Losartan Potassium 25 mg 09/16/18 09:00 09/16/18 07:40 Cozaar PO 10/16/18 08:59 25 mg DAILY RAI Administration Multivitamins/Minerals 1 tab 09/16/18 09:00 09/16/18 07:40 Multivitamin W/ Minerals Tab PO 10/16/18 08:59 1 tab DAILY RAI Administration NPO Date Last Intake of Fluids: 09/16/18 Time Last Intake of Fluids: 20:00 Last Intake of Fluids Comment: 1800 Date Last Intake of Solids: 09/16/18 Time Last Intake of Solids: 18:00 Past Medical History Medical History Hearing loss (Chronic) Aphasia (Acute 04/01/13) Dysphagia (Acute 04/01/13) Hypertension (Acute 04/01/13) Right inguinal hernia (Acute) TIA (transient ischemic attack) (Acute) ASCVD (arteriosclerotic cardiovascular disease) CAD (coronary artery disease) GERD (gastroesophageal reflux disease) Dementia Exercise / Class Metabolic Activity III < 4 Walking/Shop/Light housework Past Family History Family History Other No pertinent family history Past Surgical History Surgical History No pertinent past surgical history Past Anesthesia History No Hx of Anesthesia Complications and No Family Hx of Anesthesia Complications History of PONV No Hx of PONV and No Hx of Motion Sickness Social History Smoking Status: Never smoker Do You Dip or Chew Tobacco: No Hx Alcohol Use: No Hx Substance Use: No Physical Exam Vital Signs Last Vital Signs Temp 36.9 C 09/17/18 08:53 Pulse 91 H 09/17/18 08:53 Resp 18 09/17/18 08:53 BP 164/79 H 09/17/18 08:53 Pulse Ox 95 09/17/18 09:56 Constitutional + obese ENMT Mouth: + edentulous Thyromental Distance: > or= 3.5 Finger Breadths Mallampati Class: II Neck normal visual inspection and trachea midline; neck extension not limited Respiratory normal respiratory effort Auscultation: lungs clear to auscultation bilaterally Cardiovascular Rate/Rhythm: regular rate and regular rhythm Heart Sounds: no murmur Vessels: no carotid bruit Musculoskeletal Spine: normal cervical ROM Neurologic moves all extremities Motor/Sensory: no sensory deficit Psychiatric Orientation: + not alert (dementia) and + not oriented x 3 (dementia) Testing Electrocardiogram Date: 09/15/18 Findings: + NSR @ (SR w/PVC's at 76;mod. LVH) Chest X-Ray Date: 09/15/18 Findings: + NAD Echocardiogram Date: 09/16/18 EF: 60 LV Function: normal RWMA: + none Other Findings: + LVH mild TR Laboratory Results 09/17/18 05:46 09/17/18 05:46 PT 10.4 Seconds (9.0-12.0) 09/15/18 10:19 INR 1.0 (0.9-1.1) 09/15/18 10:19 APTT 27.3 Seconds (21.0-31.0) 09/15/18 10:19
[2018-09-17] MEDS ORDERED: SUCCINYLCHOLINE CHLORIDE 20 MG/ML 10 ML VIAL ONE (11:54)
[2018-09-17] MEDS ORDERED: PHENYLEPHRINE 100MCG/ML 5ML SYR ONE (12:46)
[2018-09-17] MEDS ORDERED: LABETALOL HCL IV 5 MG/ML 20ML IV PRN (12:51)
[2018-09-17] MEDS ORDERED: ONDANSETRON INJ 2 MG/ML 2 ML VIAL IV PRN (12:51)
[2018-09-17] MEDS ORDERED: NALOXONE HCL 0.4 MG/1 ML VIAL/CARP IV PRN (12:51)
[2018-09-17] MEDS ORDERED: ePHEDrine sulfate 50 MG/ML AMP IV PRN (12:51)
[2018-09-17] MEDS ORDERED: fentaNYL citrate 100 MCG/2 ML VIAL IV PRN (12:51)
[2018-09-17] MEDS ORDERED: ATROPINE SULFATE 0.1 MG/ML 10ML SYR IV PRN (12:51)
[2018-09-17] MEDS ORDERED: PROMETHAZINE HCL 12.5 MG in SODIUM CHLORIDE 0.9% 50 ML IV PRN (12:51)
[2018-09-17] MEDS ORDERED: FLUMAZENIL 0.1 MG/1 ML 10 ML VIAL IV PRN (12:51)
--- NOTE | 2018-09-17 12:53 | Post Operative Brief Note ---
Immediate Post Op Note v1 Date of Surgery September 17, 2018 Pre & Post Diagnosis Operation Date: 09/17/18 09:35 Pre-Op Diagnosis: Mediastinal lymphadenopathy, persistent cough; RML bronchus narrowing Post-Op Diagnosis: Mediastinal lymphadenopathy Procedure Operation Date: 09/17/18 09:35 Actual Procedures p Endobronchial Ultrasound with biopsies; bronchoscopy(Not Applicable) - Antonio Jung MD, FACS Surgeon Antonio Jung MD, FACS Wound Nurse Sherri Estimated Blood Loss 5 Findings Consistent with Post-Op Diagnosis
[2018-09-17] MEDS ORDERED: ALBUTEROL 0.083% NEBU SOLN 3 ML VIAL NEB STA (13:19)
--- NOTE | 2018-09-17 13:31 | XRay Report ---
XR chest 1V portable CLINICAL HISTORY: s/p FOB dyspnea COMPARISON STUDY: 09/15/2018 FINDINGS: Lungs are clear. No evidence of pneumothorax. Diaphragms are smooth. IMPRESSION: Lungs are clear. No evidence of pneumothorax. The above report was generated using voice recognition software. It may contain grammatical, syntax or spelling errors. Electronically signed by: David Escamilla M.D. 09/17/2018 1:29 PM
--- NOTE | 2018-09-17 13:57 | Anesthesiology Progress Note ---
Date of Service September 17, 2018 Anesthesia Post Procedure Vital Signs Vital Signs: Temp Pulse Pulse Resp BP BP Pulse Ox 09/17/18 13:35 94 H 20 157/79 H 94 09/17/18 13:25 86 27 H 154/76 H 154/75 H 99 09/17/18 13:15 95 H 26 H 130/76 155/83 H 93 09/17/18 13:07 36.8 C 95 H 16 155/83 H 155/83 H 98 09/17/18 09:56 95 09/17/18 08:53 36.9 C 91 H 18 164/79 H 91 09/17/18 08:00 95 H 09/17/18 07:57 65 18 91 09/17/18 07:37 36.7 C 91 H 18 164/79 H 91 09/17/18 04:36 36.6 C 100 H 20 176/92 H 90 09/17/18 00:00 96 H 09/16/18 23:01 36.7 C 84 20 168/90 H 90 09/16/18 20:06 36.7 C 82 18 167/81 H 92 09/16/18 19:10 82 16 92 09/16/18 16:28 80 09/16/18 15:04 36.5 C 78 18 151/77 H 93 09/16/18 14:18 79 18 92 Pain Intensity Chest: Pain Intensity: 0 Transfer of Care Handoff Completed per policy Notes Mental Status: alert / awake / arousable Patient Amnestic to Procedure: Yes Nausea / Vomiting: adequately controlled Pain: adequately controlled Airway Patency, RR, SpO2: stable & adequate BP & HR: stable & adequate Hydration State: stable & adequate Anesthetic Complications: no major complications apparent
[2018-09-17] MEDS: methylPREDNISolone 40 MG in SYRINGE 0 ML IV SCH ×2 (14:39→21:34)
[2018-09-17] MEDS: ASPIRIN 81 MG ECTAB PO SCH (14:39)
[2018-09-17] MEDS: LOSARTAN POTASSIUM 25 MG TAB PO SCH (14:39)
[2018-09-17] MEDS: hydroCHLOROthiazide 25 MG TAB PO SCH (14:39)
[2018-09-17] MEDS: ESCITALOPRAM OXALATE 10 MG TAB PO SCH (14:39)
--- NOTE | 2018-09-17 17:24 | Family Medicine Progress Note ---
Date of Service September 17, 2018 Assessment & Plan (1) Depression due to dementia: (2) GERD (gastroesophageal reflux disease): (3) SOB (shortness of breath): Acute respiratory failure-hypoxia: -Occurring for a few months per family with exertion and eating. A/w fatigue and dizziness -On admission had wheezing -CTA chest: RUL moderate bronchial narrowing seen from extrinsic compression from suggestive lymphadenopathy; prior granulomatous disease; concern for bronchitis/RAD, cardiomegaly, few scattered solid pulm nodules up to 4mm, small hiatal hernia and thick distal esophagus -Echo 06/2011 EF 55-60% grade I diastolic dysfunction -repeat ECHO 09/16/18: EF 60-65%, normal systolic function, no regional wall motion abnormality mild concentric left ventricular hypertrophy mild tricuspid valve regurg -methylpred 40mg BID -Levaquin day 3 -Duoneb Q6H sarah -Thoracic surgery consulted: 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 -pt had endobronchial US with biopsy today -pending biopsy results Hypertension: -Continue losartan Coreg and hydrochlorothiazide, aspirin GERD: -continue pepcid Depression due to dementia -continue lexapro LE edema: Likely venous stasis -ECHO EF 60-65%, normal systolic function, no regional wall motion abnormality mild concentric left ventricular hypertrophy mild tricuspid valve regurg Hypokalemia - improved -K 3.9 -repleted with KCL 40meq x 1 FEN/GI: concern for hypovolemia (dry mucous membranes and elevated BUN/Cr ratio) started on IVF 80cc/hr DV prop: Hep Code: Full Dispo: pending further work up and clinical improvement (4) Cough: (5) Wheezing: (6) Abnormal chest CT: (7) Osteoarthritis: Supervising Physician Co-Signing Physician Notes I personally examined the patient and verified all vasquez points of history and exam, discussed case, and agree with decision making with Dr Gomez. Breathing feels a little bit tight after bronchoscopy. Not significantly short of breath, just a little bit worse. Vitals noted, in general she is awake and alert pleasant no distress. HEENT normocephalic atraumatic mucous members moist. Breathing is unlabored no accessory muscle use but she does have a faint wheeze most notable in the right upper lung field. Dyspneawith airway impingementbronchoscopy done, await results. Appreciate thoracic input. Otherwise as above Subjective This PM pt is resting in bed when examined. Reports some sob and some wheezing can also be appreciated likely post endobronchial US. Otherwise asymptomatic. Review of Systems Review of Systems: As per HPI Physical Exam Physical Exam: General: In NAD, pleasant CV: RRR, no m/r/g PULM: expiratory wheezing appreciated, equal breath sounds bilaterally ABDOMEN: +BS, non-distended, TTP over upper abdomen LE: no calf TTP, 2+ b/l LE edema Results & Data Vital Signs (Past 12 Hours) Vital Signs Temp Pulse Pulse Resp BP BP Pulse Ox 09/17/18 15:23 36.8 C 81 20 138/77 96 09/17/18 14:19 36.4 C L 77 20 125/75 93 09/17/18 14:05 37.2 C 83 21 156/76 H 95 09/17/18 14:03 18 97 09/17/18 13:55 37.2 C 80 22 157/66 H 95 09/17/18 13:45 88 26 H 147/77 H 94 09/17/18 13:35 94 H 20 157/79 H 94 09/17/18 13:25 86 27 H 154/76 H 154/75 H 99 09/17/18 13:15 95 H 26 H 130/76 155/83 H 93 09/17/18 13:07 36.8 C 95 H 16 155/83 H 155/83 H 98 09/17/18 09:56 95 09/17/18 08:53 36.9 C 91 H 18 164/79 H 91 09/17/18 08:00 95 H 09/17/18 07:57 65 18 91 09/17/18 07:37 36.7 C 91 H 18 164/79 H 91 Diagnostic Findings Abnormal lab results 09/17/18 09/17/18 Range/Units 05:46 05:46 WBC 23.37 H (4.8-10.8) K/uL RBC 3.85 L (4.2-5.4) M/uL Hct 36.0 L (37-47) % RDW Std Deviation 52.2 H (36.4-46.3) fL RDW Coeff of Mandi 15.5 H (11.5-14.5) % Plt Count 697 H (130-400) K/uL MPV 10.9 H (7.4-10.4) fL Immature Gran # (Auto) 0.19 H (0.00-0.02) K/uL Neut # (Auto) 20.87 H (1.4-6.5) K/uL Kay # (Auto) 1.02 H (0.11-0.59) K/uL BUN 27 H (7-18) mg/dl BUN/Creatinine Ratio 29.2 H (10-20) Glucose 132 H (70-99) mg/dl Medications Administered Current Inpatient Medications Acetaminophen (Tylenol) 1,000 mg PO Q6H PRN PRN Reason: Pain or Fever Stop: 10/15/18 16:27 Al Hydrox/Mg Hydrox/Simethicone (Maalox) 15 ml PO Q4H PRN PRN Reason: Dyspepsia Stop: 10/15/18 16:27 Albuterol (Duoneb) 3 ml INH Q6R [facility] Stop: 10/15/18 19:59 Last Admin: 09/17/18 14:02 Dose: Not Given Documented by: Aspirin (Ecotrin Ectab) 81 mg PO DAILY [facility] Stop: 10/16/18 08:59 Last Admin: 09/17/18 14:39 Dose: Not Given Documented by: Carvedilol (Coreg) 3.125 mg PO BIDM [facility] Stop: 10/15/18 16:59 Last Admin: 09/17/18 16:17 Dose: 3.125 mg Documented by: Escitalopram Oxalate (Lexapro) 10 mg PO DAILY [facility] Stop: 10/16/18 08:59 Last Admin: 09/17/18 14:39 Dose: Not Given Documented by: Guaifenesin/Dextromethorphan (Robitussin Cough-Chest Dm) 10 ml PO Q6H PRN PRN Reason: Cough Stop: 10/15/18 16:50 Last Admin: 09/16/18 20:30 Dose: 10 ml Documented by: Heparin Sodium (Porcine) (Heparin Sodium (Porcine)) 5,000 units SQ Q12 [facility] Stop: 10/15/18 20:59 Last Admin: 09/17/18 09:00 Dose: Not Given Documented by: Hydrochlorothiazide (Hctz) 25 mg PO QAM [facility] Stop: 10/16/18 08:59 Last Admin: 09/17/18 14:39 Dose: Not Given Documented by: Methylprednisolone 40 mg/ (Syringe) 0.64 mls @ 1.5 mls/min IV Q12H [facility] Stop: 10/15/18 19:59 Last Admin: 09/17/18 14:39 Dose: Not Given Documented by: Levofloxacin/Dextrose (Levaquin/D5w) 250 mg in 50 mls @ 50 mls/hr IV Q24H SARAH; Protocol Stop: 09/22/18 16:59 Last Infusion: 09/16/18 18:51 Dose: Infused Documented by: Sodium Chloride (Nss 1000ml) 1,000 mls @ 80 mls/hr IV .[id number] [facility] [place] Stop: 10/16/18 11:14 Last Admin: 09/17/18 15:03 Dose: Not Given Documented by: Ioversol (Optiray 320 125ml) 98 ml IV ONCE PRN PRN Reason: Interaction Checking Stop: 09/19/18 12:37 Last Admin: 09/15/18 12:38 Dose: 98 ml Documented by: Lorazepam (Ativan) 0.5 mg PO DAILY PRN PRN Reason: Anxiety Stop: 10/15/18 16:27 Last Admin: 09/16/18 19:52 Dose: 0.5 mg Documented by: Losartan Potassium (Cozaar) 25 mg PO DAILY [facility] Stop: 10/16/18 08:59 Last Admin: 09/17/18 14:39 Dose: Not Given Documented by: Morphine Sulfate (Morphine Sulfate) 2 mg IV Q30M PRN PRN Reason: Chest Pain Stop: 09/29/18 16:27 Multivitamins/Minerals (Multivitamin W/ Minerals Tab) 1 tab PO DAILY [facility] [place] Stop: 10/16/18 08:59 Last Admin: 09/17/18 09:00 Dose: Not Given Documented by: Ondansetron HCl (Zofran) 4 mg IV Q6H PRN PRN Reason: Nausea Stop: 10/15/18 16:27 Polyethylene Glycol (Miralax Powder Packet) 17 gm PO DAILY PRN PRN Reason: Constipation Stop: 10/15/18 16:27 Resident Activity Tracking Resident Involvement: Resident Care Provided Care Provided: Adult Hospital Medicine
--- NOTE | 2018-09-17 20:59 | Operative Report ---
DATE OF OPERATION: 09/17/2018 PREOPERATIVE DIAGNOSES: 1. Mediastinal adenopathy. 2. Apparent narrowing of the right middle lobe bronchus. POSTOPERATIVE DIAGNOSES: 1. Mediastinal adenopathy. 2. No apparent stenosis of the middle lobe bronchus. PROCEDURES: 1. Endobronchial ultrasound with biopsy. 2. Fiberoptic bronchoscopy. ANESTHESIA: General anesthesia with endotracheal intubation. SURGEON: Antonio Jung MD. CARE ASST: Noble Polanco, registered respiratory therapist. ANESTHESIA: General anesthesia with endotracheal intubation. INDICATION FOR PROCEDURE AND FINDINGS: Nina Addison is an 88-year-old female who has a persistent cough since last April when she developed "bronchitis." The patient had a persistent cough. She also has dementia and really does not understand what is going on. However, her daughter is very attentive and stated that her mother has been coughing, it has been uncomfortable for her and she has trouble eating because of this persistent cough and after a long discussion, she asked that we do a diagnostic bronchoscopy and an endobronchial ultrasound. We said this in particular because she does have calcifications and enlargement of some of her mediastinal nodes, but more importantly has what appears to be stenosis of the middle lobe bronchus; however, on the x-ray, I did not see evidence of collapse of the middle lobe. At any rate, I was asked to proceed, so today on 09/17/2018, the patient underwent an uncomplicated endobronchial ultrasound with biopsy and a fiberoptic bronchoscopy via an endotracheal tube. Upon evaluation, she had a large amount of thick yellow sputum, which I suctioned out and sent for culture. She also had what appeared to be inflammation of her airways with erythema, but no lesions per se. She did have significantly sized level 7, right level 11, which is our biggest area of interest as well as a right level 10, right level 4 and I biopsied all of these and got lymph node samples in all of them. We had very little in the way of bleeding. I then did a fiberoptic bronchoscopy and completely inspected all the airways and really did not see any evidence of any stenosis in the right middle lobe. I was able to get through this without difficulty. There was no significant bleeding when we finished and I completely irrigated out all the airways. It should also be noted that the patient had no endobronchial lesions out to the tertiary airways. I slowly removed the bronchoscope and the patient was transported back to the PACU in stable condition. I attest to the content of the Intraoperative Record and any orders documented therein. Any exception s are noted below.
[2018-09-17] MEDS: TRAVOPROST Z 0.004% OPH SOLN 2.5 ML BTL OPB SCH (21:34)
[2018-09-17] MEDS ORDERED: ACETAMINOPHEN 500 MG TAB PO PRN (21:48)
[2018-09-18] MEDS: ALBUT/IPRATROP 3MG/0.5MG NEB 3 ML VIAL INH SCH ×3 (01:59→16:05)
[2018-09-18 05:56] LABS: Basophils # (auto) 0.01 K/uL (0-0.2); Basophils % (auto) 0.1 %; Hematocrit (blood only) 34.7 % (37-47); Hemoglobin 11.2 g/dL (12.0-16.0); Immature Granulocytes # (auto) 0.13 K/uL (0.00-0.02); Immature Granulocytes % (auto) 0.9 %; Lymphocytes # (auto) 0.87 K/uL (1.2-3.4); Lymphocytes % (auto) 5.9 %; Mean Corpuscular Hgb Conc 32.3 g/dL (32-36); Mean Corpuscular Volume 95.3 fL (80-100); Mean Platelet Volume 10.3 fL (7.4-10.4); Monocytes # (auto) 0.52 K/uL (0.11-0.59); Monocytes % (auto) 3.5 %; Neutrophils # (auto) 13.34 K/uL (1.4-6.5); Neutrophils % (auto) 89.6 %; Platelet Count 591 K/uL (130-400); RDW Coefficient of Variation 15.5 % (11.5-14.5); RDW Standard Deviation 54.1 fL (36.4-46.3); Red Blood Count 3.64 M/uL (4.2-5.4); White Blood Count 14.87 K/uL (4.8-10.8)
[2018-09-18] MEDS ORDERED: CIPROFLOXACIN 400 MG/200 ML BAG IV SCH (06:00)
[2018-09-18 06:47] LABS: BUN Creatinine Ratio 24.5 (10-20); Calcium 8.1 mg/dl (8.5-10.1); Creatinine Clr Calc Pharmacy 41.8 ml/min; Est GFR (Non-African American) 53.5; Potassium 4.3 mmol/L (3.5-5.1)
[2018-09-18] MEDS: methylPREDNISolone 40 MG in SYRINGE 0 ML IV SCH ×2 (08:16→20:32)
[2018-09-18] MEDS: hydroCHLOROthiazide 25 MG TAB PO SCH (08:16)
[2018-09-18] MEDS: CEROVITE ADV FORMULA TAB PO SCH (08:17)
[2018-09-18] MEDS: SODIUM CHLORIDE 0.9% 1000ML 1,000 ML IV SCH ×2 (08:17→20:40)
[2018-09-18] MEDS: CARVEDILOL 3.125 MG TAB PO SCH ×2 (08:17→17:10)
[2018-09-18] MEDS: HEPARIN SOD 5,000 UNIT/0.5 ML VIAL SQ SCH ×2 (08:17→20:32)
[2018-09-18] MEDS: LOSARTAN POTASSIUM 25 MG TAB PO SCH (08:17)
[2018-09-18] MEDS: ASPIRIN 81 MG ECTAB PO SCH (08:17)
[2018-09-18] MEDS: ESCITALOPRAM OXALATE 10 MG TAB PO SCH (08:17)
[2018-09-18] MEDS: ALUMINUM/MAGNESIUM SUSP 30 ML UDC PO PRN ×2 (11:06→18:51)
--- NOTE | 2018-09-18 14:37 | Progress Note ---
DATE: 09/18/2018 Ms. Addison was seen today. She tolerated her procedure quite well yesterday. She has no further coughing this morning. Her daughter thinks her cough may be a bit better. The patient's cytology was reviewed and these are normal lymph nodes with no evidence of malignancy. In addition, the Gram stain shows no organisms and the 24-hour growth from her bronchioalveolar lavage shows no evidence of any growth. In addition, her lymph nodes have no growth. I discussed this in detail with the patient's daughter and stated that I did not think that she had any endobronchial reason for her productive cough. I also do not think it has to do with lymphadenopathy. At this point, I have signed off. I would be glad to see her back at any time.
[2018-09-18] MEDS: ALBUT/IPRATROP 3MG/0.5MG NEB 3 ML VIAL NEB SCH ×3 (16:01→23:48)
[2018-09-18] MEDS: LEVOFLOXACIN/D5W 250 MG/50 ML BAG IV SCH (16:05)
--- NOTE | 2018-09-18 17:56 | Family Medicine Progress Note ---
Date of Service September 18, 2018 Assessment & Plan (1) Depression due to dementia: Continue home meds (2) GERD (gastroesophageal reflux disease): Continue H2 (3) SOB (shortness of breath): Chest CT showed question of narrowing on the right upper lung, this was evaluated by bronchoscopy, nodes were sampled although thoracic believe they would likely be reactive. There was a decent amount of mucus, we reached the conclusion this may be a focal area of infection. Continue current treatment. With her hypoxia related to this, oxygen was weaned. She was able to be off of oxygen at rest, but unfortunately with ambulation she did desaturate some. In discussion with the daughter, given this is hopefully going to be temporary, but given the fact that she would likely not do well with oxygen in her personal care setting, we agreed to be as aggressive as reasonably possible for pulmonary toilet to try to clear mucus to improve her hypoxia to hopefully get her home as soon as possible. We will maximize nebulizers, and utilize incentive spirometry and flutter valve, and try to improve her oxygenation with ambulation. (4) Cough: (5) Wheezing: (6) Abnormal chest CT: As above (7) Osteoarthritis: Subjective Feeling better, breathing better. Not quite back to baseline but doing better. Would like to go home. Extensive discussions with patient and daughter. Revisited later whenever she was not able to maintain oxygen saturations ambulatory. Review of Systems Review of Systems: All systems reviewed & are unremarkable except as noted in HPI & below Somewhat limited due to dementia Physical Exam Physical Exam: In general she is awake and alert and oriented pleasant no distress. HEENT normocephalic atraumatic mucous members are moist. Breathing is unlabored, she shows some right upper lobe wheezing otherwise no rales rhonchi or wheezes good effort no accessory muscle use. Neuro shows cranial nerves II through XII be grossly intact gross motor and sensory intact Results & Data Vital Signs (Past 12 Hours) Vital Signs Temp Pulse Resp BP Pulse Ox 09/18/18 16:01 87 20 95 09/18/18 15:53 37.4 C 71 18 158/83 H 91 09/18/18 07:27 36.5 C 78 18 178/82 H 09/18/18 07:12 90 18 94
[2018-09-18] MEDS: TRAVOPROST Z 0.004% OPH SOLN 2.5 ML BTL OPB SCH (20:32)
[2018-09-19] MEDS: ALBUT/IPRATROP 3MG/0.5MG NEB 3 ML VIAL NEB SCH ×5 (03:28→19:53)
[2018-09-19 07:45] LABS: Hematocrit (blood only) 35.8 % (37-47); Hemoglobin 11.6 g/dL (12.0-16.0); Mean Corpuscular Hgb Conc 32.4 g/dL (32-36); Mean Platelet Volume 10.7 fL (7.4-10.4); Platelet Count 671 K/uL (130-400); RDW Coefficient of Variation 15.5 % (11.5-14.5); RDW Standard Deviation 53.8 fL (36.4-46.3); Red Blood Count 3.77 M/uL (4.2-5.4); White Blood Count 16.61 K/uL (4.8-10.8)
[2018-09-19] MEDS: LOSARTAN POTASSIUM 25 MG TAB PO SCH (08:04)
[2018-09-19] MEDS: CARVEDILOL 3.125 MG TAB PO SCH ×2 (08:04→17:05)
[2018-09-19] MEDS: CEROVITE ADV FORMULA TAB PO SCH (08:04)
[2018-09-19] MEDS: ASPIRIN 81 MG ECTAB PO SCH (08:04)
[2018-09-19] MEDS: methylPREDNISolone 40 MG in SYRINGE 0 ML IV SCH ×2 (08:04→20:34)
[2018-09-19] MEDS: HEPARIN SOD 5,000 UNIT/0.5 ML VIAL SQ SCH ×2 (08:04→20:12)
[2018-09-19] MEDS: ESCITALOPRAM OXALATE 10 MG TAB PO SCH (08:04)
[2018-09-19] MEDS: hydroCHLOROthiazide 25 MG TAB PO SCH (08:04)
[2018-09-19] MEDS: SODIUM CHLORIDE 0.9% 1000ML 1,000 ML IV SCH (08:08)
[2018-09-19 08:19] LABS: BUN Creatinine Ratio 25.4 (10-20); Calcium 8.3 mg/dl (8.5-10.1); Creatinine Clr Calc Pharmacy 45.2 ml/min; Est GFR (Non-African American) 58.7; Potassium 3.9 mmol/L (3.5-5.1)
[2018-09-19] MEDS: LEVOFLOXACIN/D5W 250 MG/50 ML BAG IV SCH (17:04)
--- NOTE | 2018-09-19 17:23 | Hospitalist Progress Note ---
Date of Service September 19, 2018 Assessment & Plan (1) Depression due to dementia: Continue current meds (2) GERD (gastroesophageal reflux disease): Continue H2 seems asymptomatic in this regard (3) SOB (shortness of breath): Chest CT showed question of narrowing on the right upper lung, this was evaluated by bronchoscopy, nodes were sampled although thoracic believe they would likely be reactive. There was a decent amount of mucus, we reached the conclusion this may be a focal area of infection. Continue current treatment. With her hypoxia related to this, oxygen was weaned. She was able to be off of oxygen at rest, but still desaturates with ambulation. In discussion with her daughter on 09/18, given this is hopefully going to be temporary, but given the fact that she would likely not do well with oxygen in her personal care setting, we agreed to be as aggressive as reasonably possible for pulmonary toilet to try to clear mucus to improve her hypoxia to hopefully get her home as soon as poss ible. Continue this with hopes of being able to wean the oxygen with ambulation too. (4) Cough: (5) Wheezing: (6) Abnormal chest CT: As above (7) Osteoarthritis: Subjective Feeling fine. No new complaints. Breathing feels okay at rest. She has not gotten up and walked around much yet. Later called by nursing that unfortunately she still desaturates to the mid 80s with ambulation off of oxygen. Review of Systems Review of Systems: All systems reviewed & are unremarkable except as noted in HPI & below Review of systems otherwise negative as best can be ascertained except for as above Physical Exam Physical Exam: In general she is pleasant no distress. HEENT normocephalic atraumatic mucous membranes moist. Breathing is unlabored she has ongoing faint wheeze in the right upper lung field. No accessory muscle use good effort. Skin shows no rashes no pallor or icterus. Neuro shows no focal deficits. Results & Data Vital Signs (Past 12 Hours) Vital Signs Temp Pulse Pulse Pulse Resp BP BP 09/19/18 15:32 63 18 09/19/18 15:20 36.7 C 59 L 18 171/73 H 09/19/18 11:37 60 18 09/19/18 08:03 78 18 09/19/18 07:21 36.6 C 80 18 171/71 H Pulse Ox 09/19/18 15:32 97 09/19/18 15:20 93 09/19/18 11:37 96 09/19/18 08:03 94 09/19/18 07:21 90
[2018-09-19] MEDS: TRAVOPROST Z 0.004% OPH SOLN 2.5 ML BTL OPB SCH (20:34)
[2018-09-20] MEDS: ALBUT/IPRATROP 3MG/0.5MG NEB 3 ML VIAL NEB SCH ×7 (00:24→23:29)
[2018-09-20] MEDS: LOSARTAN POTASSIUM 25 MG TAB PO SCH (08:17)
[2018-09-20] MEDS: methylPREDNISolone 40 MG in SYRINGE 0 ML IV SCH (08:17)
[2018-09-20] MEDS: ASPIRIN 81 MG ECTAB PO SCH (08:17)
[2018-09-20] MEDS: CEROVITE ADV FORMULA TAB PO SCH (08:17)
[2018-09-20] MEDS: hydroCHLOROthiazide 25 MG TAB PO SCH (08:17)
[2018-09-20] MEDS: CARVEDILOL 3.125 MG TAB PO SCH ×2 (08:17→17:41)
[2018-09-20] MEDS: ESCITALOPRAM OXALATE 10 MG TAB PO SCH (08:17)
[2018-09-20] MEDS: HEPARIN SOD 5,000 UNIT/0.5 ML VIAL SQ SCH ×2 (08:18→20:52)
[2018-09-20] MEDS: LORazepam 0.5 MG TAB PO PRN (10:51)
--- NOTE | 2018-09-20 10:54 | XRay Report ---
TWO VIEW CHEST CLINICAL HISTORY: Hypoxia. FINDINGS: AP and lateral chest radiographs are compared to study dated 09/17/2018 and correlated with c hest CT dated 09/15/2018. The heart is enlarged and there is atherosclerotic calcification of the thor acic aorta. There is prominence of the central pulmonary vasculature. Emphysema and chronic interstit ial thickening are similar to previous. There are trace pleural effusions and bibasilar atelectasis. There is no pneumothorax. The skeletal structures are osteopenic. The bony thorax appears intact. Deg enerative change and hyperkyphosis is seen in the thoracic spine. Arthritic change is noted in the sh oulders. IMPRESSION: 1. Cardiomegaly with prominence of the pulmonary vasculature. Correlate clinically for evidence of mi ld congestive failure. 2. Emphysema. 3. Trace pleural effusions. Electronically signed by: Raúl Espitia M.D. 09/20/2018 10:52 AM
[2018-09-20 12:38] LABS: Basophils # (auto) 0.03 K/uL (0-0.2); Basophils % (auto) 0.1 %; Eosinophils # (auto) 0.02 K/uL (0-0.5); Eosinophils % (auto) 0.1 %; Hematocrit (blood only) 40.3 % (37-47); Hemoglobin 13.8 g/dL (12.0-16.0); Immature Granulocytes # (auto) 0.69 K/uL (0.00-0.02); Lymphocytes # (auto) 1.13 K/uL (1.2-3.4); Lymphocytes % (auto) 4.9 %; Mean Corpuscular Hgb Conc 34.2 g/dL (32-36); Mean Corpuscular Volume 92.6 fL (80-100); Mean Platelet Volume 10.5 fL (7.4-10.4); Monocytes # (auto) 1.68 K/uL (0.11-0.59); Monocytes % (auto) 7.3 %; Neutrophils % (auto) 84.6 %; Nucleated RBC # (auto) 0.07 K/uL (0-0); Nucleated RBC % (auto) 0.3 %; Platelet Count 827 K/uL (130-400); RDW Coefficient of Variation 15.2 % (11.5-14.5); RDW Standard Deviation 51.8 fL (36.4-46.3); Red Blood Count 4.35 M/uL (4.2-5.4); White Blood Count 23.05 K/uL (4.8-10.8)
[2018-09-20 12:55] LABS: BUN Creatinine Ratio 24.7 (10-20); Calcium 8.6 mg/dl (8.5-10.1); Creatinine Clr Calc Pharmacy 40.2 ml/min; Est GFR (Non-African American) 50.9; Potassium 4.2 mmol/L (3.5-5.1)
[2018-09-20] MEDS ORDERED: FUROSEMIDE 40 MG in SYRINGE 0 ML IV ONE (13:15)
[2018-09-20] MEDS: LEVOFLOXACIN/D5W 250 MG/50 ML BAG IV SCH (17:40)
--- NOTE | 2018-09-20 19:00 | Hospitalist Progress Note ---
Date of Service September 20, 2018 Assessment & Plan (1) Depression due to dementia: Continue current meds (2) GERD (gastroesophageal reflux disease): Continue H2 seems asymptomatic in this regard (3) SOB (shortness of breath): Chest CT showed question of narrowing on the right upper lung, this was evaluated by bronchoscopy, nodes were sampled although thoracic believe they would likely be reactive. There was a decent amount of mucus, we reached the conclusion this may be a focal area of infection. Continue course of Levaquin and tapering steroids. As far as her hypoxia, it was continuing to be a problem of the oxygenation with exertion, and given that the situation with her dementia and personal care would not be compatible with her being able to go home on oxygen, we are working hard to try to get her to where she does not need oxygen with exertion. To that end, chest x-ray today was obtained, it did show pulmonary edema that was not noted before. It is possible that the steroids, although corticosteroids, may have had a bit of a mineralocorticoid effect causing fluid retention. Certainly the pulmonary edema would easily account for her ongoing desaturation with exertion. Give a dose of Lasix, follow. (4) Cough: (5) Wheezing: (6) Abnormal chest CT: As above (7) Osteoarthritis: (8) Delirium: Seems to be a hospital-acquired delirium superimposed on dementia. She does not show any signs or symptoms of any new inciting factors beyond what we are already treating. Supportive care and work towards getting her back to her home environment as soon as possible. Ongoing vigilance for any new inciting factors. (9) Leukocytosis: Already on antibiotics for a lung infection, has been on steroids, likely is steroid effect. No other notable signs or symptoms of infections elsewhere. Follow-up CBC tomorrow. (10) DVT prophylaxis: Heparin subcu (11) Discharge planning issues: Back to personal care when she no longer is desaturating with exertion. Subjective Not much of any meaningful HPI or review of systems. Patient more confused today. Family present extensively discussed. Review of Systems Review of Systems: Unobtainable due to cognitive status Physical Exam Physical Exam: She is awake and pleasant but seems to be confused. Breathing unlabored no accessory muscle use. Skin shows no rashes no pallor or icterus. Neuro shows no focal deficits. Results & Data Vital Signs (Past 12 Hours) Vital Signs Temp Pulse Pulse Resp BP BP Pulse Ox 05/05/19 15:26 76 18 93 09/20/18 15:00 36.7 C 67 16 165/85 H 92 09/20/18 11:06 61 16 96 09/20/18 07:31 73 16 91 09/20/18 07:00 36.9 C 68 20 182/81 H 91
[2018-09-20] MEDS: TRAVOPROST Z 0.004% OPH SOLN 2.5 ML BTL OPB SCH (20:52)
[2018-09-21] MEDS: ALBUT/IPRATROP 3MG/0.5MG NEB 3 ML VIAL NEB SCH ×4 (03:04→15:15)
[2018-09-21 06:05] LABS: Basophils # (auto) 0.03 K/uL (0-0.2); Basophils % (auto) 0.2 %; Eosinophils # (auto) 0.08 K/uL (0-0.5); Eosinophils % (auto) 0.5 %; Hematocrit (blood only) 38.6 % (37-47); Hemoglobin 13.1 g/dL (12.0-16.0); Immature Granulocytes # (auto) 0.66 K/uL (0.00-0.02); Immature Granulocytes % (auto) 3.7 %; Lymphocytes # (auto) 2.36 K/uL (1.2-3.4); Lymphocytes % (auto) 13.4 %; Mean Corpuscular Hgb Conc 33.9 g/dL (32-36); Mean Corpuscular Volume 92.3 fL (80-100); Mean Platelet Volume 10.3 fL (7.4-10.4); Monocytes # (auto) 1.88 K/uL (0.11-0.59); Monocytes % (auto) 10.7 %; Neutrophils # (auto) 12.62 K/uL (1.4-6.5); Neutrophils % (auto) 71.5 %; Nucleated RBC # (auto) 0.06 K/uL (0-0); Nucleated RBC % (auto) 0.3 %; Platelet Count 730 K/uL (130-400); RDW Coefficient of Variation 15.4 % (11.5-14.5); RDW Standard Deviation 51.4 fL (36.4-46.3); Red Blood Count 4.18 M/uL (4.2-5.4); White Blood Count 17.63 K/uL (4.8-10.8)
[2018-09-21 06:57] LABS: BUN Creatinine Ratio 26.7 (10-20); Calcium 8.7 mg/dl (8.5-10.1); Creatinine Clr Calc Pharmacy 39.4 ml/min; Est GFR (African American) 57.6; Est GFR (Non-African American) 49.7; Potassium 3.5 mmol/L (3.5-5.1)
[2018-09-21] MEDS: hydroCHLOROthiazide 25 MG TAB PO SCH (07:48)
[2018-09-21] MEDS: ESCITALOPRAM OXALATE 10 MG TAB PO SCH (07:48)
[2018-09-21] MEDS: CEROVITE ADV FORMULA TAB PO SCH (07:48)
[2018-09-21] MEDS: CARVEDILOL 3.125 MG TAB PO SCH (07:49)
[2018-09-21] MEDS: ASPIRIN 81 MG ECTAB PO SCH (07:49)
[2018-09-21] MEDS: LOSARTAN POTASSIUM 25 MG TAB PO SCH (07:50)
[2018-09-21] MEDS: HEPARIN SOD 5,000 UNIT/0.5 ML VIAL SQ SCH (07:50)
[2018-09-21] MEDS ORDERED: predniSONE 20 MG TAB PO SCH (09:00)
--- NOTE | 2018-09-21 16:52 | Discharge Summary ---
Date of Service September 21, 2018 Admission HPI Per Admitting Provider Patient brought in by family for increased dyspnea on exertion which is worsened over the last few months to the point where she becomes lightheaded and extremely fatigued with any minor exertion. Additionally this morning she became dyspneic with eating. Patient has significant dementia and cannot contribute anything to the conversation. The family, which are POA's, were present. They are in agreement with diagnostic discovery of the etiology of her bronchial narrowing and evaluation for the etiology of her peripheral edema. She is currently a full code but family certainly will take the diagnostic results and make further decisions based upon the significance of these findings. Patient herself does not complain of any chest pain associate with this just lightheadedness and dizziness. She did they deny her having dysphasia but says she gets very short of breath when she tries to eat. There is a recollection of breast cancer in the chart however the family is not confirmatory of that. Admission Exam Per Admitting Provider The patient appeared well nourished and normally developed. Vital signs as documented. She was hypoxic on room air she is okay with supplementation currently Head exam is unremarkable. normocephalic, atraumatic Neck is without jugular venous distension, thyromegaly, or lymphademopathy Lungs are bilateral wheezing worse in the upper quadrants no focal air loss no egophony Cardiac exam reveals Rhythm is regular. No systolic murmur heard first and second heart sounds normal. Abdominal exam reveals normal bowel sounds, no masses, no organomegaly Extremities are moderately 2+ edematous bilaterally Neurologic exam is A&Ox2, no focal deficits, strength is equal bilateral she can follow commands Skin is warm Dry without bruises or lesions Principal Diagnosis Hypoxia, Secondary to bronchospasm, possbily secondary to infection/bronchitis possibly secondary to aspiration event. Discharge Exam Constitutional WD/WN, vitals as above comfortable; no acute distress Eyes PERRL, conjunctivae normal, anicteric sclerae Respiratory normal respiratory effort, able to speak in complete sentences and symmetric chest movement; no respiratory distress, no labored breathing, does not use accessory muscles, no cough, not tachypneic, no audible wheezes and no stridor Auscultation: lungs clear to auscultation bilaterally; no crackles, no rales and no wheezes Cardiovascular Rate/Rhythm: regular rate and regular rhythm Heart Sounds: normal S1 and normal S2 Extremities: + edema; no calf tenderness Gastrointestinal (Abdomen) normal bowel sounds, soft, nontender, no hepatosplenomegaly Discharge Data Allergies Allergy/AdvReac Type Severity Reaction Status Date / Time clindamycin Allergy Severe SHORTNESS Verified 09/15/18 10:37 OF BREATH Cephalosporins Allergy Intermediate RASH-UPSET Verified 09/15/18 10:37 STOMACH Penicillins Allergy Intermediate RASH-UPSET Verified 09/15/18 10:37 STOMACH aspirin AdvReac Mild burning is Verified 09/15/18 10:37 stomach Consultations 09/15/18 13:59 ED Decision to Admit Stat 09/15/18 16:28 Consult Case Management - Discharge Planning Routine Consult Thoracic Surgery Stat 09/16/18 18:42 Consult Thoracic Surgery Routine Procedures Performed Operation Date: 09/17/18 09:35 Actual Procedures p Endobronchial Ultrasound with biopsies; (Not Applicable) - Antonio Jung MD, FACS s bronchoscopy(Not Applicable) - Antonio Jung MD, FACS Ordered Studies 09/15/18 10:49 CT angio chest PE protocol Stat Hospital Course (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 A/w fatigue and dizziness. Patient received a CTA chest: RUL moderate bronchial narrowing seen from extrinsic compression from suggestive lymphadenopathy; prior granulomatous disease; concern for bronchitis/RAD, cardiomegaly, few scattered solid pulm nodules up to 4mm, small hiatal hernia and thick distal esophagus, an ECHO 09/16/18 showed EF 60-65%, normal systolic function, no regional wall motion abnormality mild concentric left ventricular hypertrophy mild tricuspid valve regurg Acute respiratory failure-hypoxia: Possibly secondary to pneumonitis -Resolved on discharge RUL moderate bronchial narrowing - Unclear etiology. 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. Biopsy results are pending, however surgeon believed all cells appeared reactive and did not think there would be any malignancy. -denies any symptoms of aspiration. No sign noted during oral intake. -finish course of levaquin and steroids. HFpEF -continue home dose lasix and coreg, losartan GERD- no concern of acute worsening. (4) Cough: (5) Wheezing: (6) Abnormal chest CT: (7) Osteoarthritis: Total Time Total Time Spent Total Time Spent (In Minutes): 40 Discharge Plan Discharge Items Patient Disposition: Personal Custodial Reason For Visit: ACUTE ON CHRONIC RESPIRATORY FAILURE Discharge Diagnosis: CHF, Fluid Overload, bronchospasm Condition: Good Discharge Goals: Decrease discomfort Activity: Resume your previous activity Non-emergency contact: Primary Care Provider Call non-emergency contact if: you have any medication questions and your symptoms worsen Follow-up/Referrals: Avelina Lugo CRNP [Primary Care Provider] - Diet: Regular Addtl Provider Instructions: Ms Addison, it was our pleasure to meet you and evaluate and treat you for your cough here at [facility]. We believe your cough was caused in part due to a localized infection and in part due to some fluid overload which backed up into your lungs. We have treated you with antibiotics, steroids and lasix and we are comfortable sending you back to your assisted living facility on your home medications and close outpatient follow up with your doctor there. You have been oxygenating very well without any supplemental oxygen at rest and we are comfortable discharging you home without any oxygen. It will be important for your primary care doctor to continue to evaluate you in the outpatient setting for adjustment of your lasix to prevent you from becoming fluid overloaded again. Prescriptions: Continued furosemide 20 mg Tablet 20 mg PO DAILY PRN (Reason: Fluid Retention) RF: 0 aspirin 81 mg Tablet,Delayed Release (Dr/Ec) 81 mg PO DAILY RF: 0 carvedilol [Coreg] 3.125 mg Tablet 3.125 mg PO BIDM RF: 0 famotidine 20 mg Tablet 20 mg PO Q12 PRN (Reason: Unknown) RF: 0 hydrochlorothiazide 25 mg Tablet 25 mg PO QAM RF: 0 cholecalciferol (vitamin D3) [Vitamin D3] 1,000 unit Capsule 1,000 unit PO QPM RF: 0 escitalopram oxalate 10 mg Tablet 10 mg PO DAILY RF: 0 PreserVision AREDS [id number] Tablet 1 tab PO DAILY RF: 0 losartan 50 mg Tablet 25 mg PO DAILY RF: 0 albuterol sulfate 2.5 mg /3 mL (0.083 %) Solution For Nebulization 2.5 mg INHALATION Q4 PRN (Reason: Shortness Of Breath) RF: 0 acetaminophen 160 mg Tablet,Chewable 960 mg PO Q8 PRN (Reason: Pain) RF: 0 benzonatate 200 mg Capsule 200 mg PO TID PRN (Reason: Cough) RF: 0 Tussin DM 10-100 mg/5 mL Liquid 10 ml PO Q6 PRN (Reason: Cough) RF: 0 Travatan Z 0.004 % Drops 1 drp OPB HS RF: 0 acetaminophen [Tylenol Extra Strength] 500 mg Tablet 500 - 1,000 mg PO DIRECTED PRN (Reason: Pain) RF: 0 lorazepam 0.5 mg Tablet 0.5 mg PO DAILY PRN (Reason: Anxiety) RF: 0 nystatin 100,000 unit/gram Cream 1 applic TOPICAL DIRECTED RF: 0 Stand-Alone Forms: [facility] Discharge Orders: Discharge Order (Routine); Ordered 09/21/18 Ordered By: Dustin Pyle Admission Data Admit Date/Time: 09/15/18 14:19 Attending Provider: Jacquelyn Acevedo Admit Provider: Santos Duron Primary Care Provider: Avelina Lugo Other Providers: Antonio Jung ; Anson Graham ; Santos Duron ; Cam Mathur Service: Telemetry Medical Other Interventions: Discharge Summary Assessment (RN) Last Done: 09/21/18 15:09 DC Date/Time DO NOT enter until pt leaves facility: 09/21/18 15:40 Supervising Physician Co-Signing Physician Notes Resident Physician Supervision Note: I independently interviewed and examined the patient and verified the vasquez history and physical, reviewed labs and image studies, discussed the case with the resident Dr. Pyle and agree with the findings and care plan. Time spent in discharge 35 min Resident Activity Tracking Resident Involvement: Resident Care Provided Care Provided: Adult Hospital Medicine
== END 2018-09-21 15:40 | disposition home or self-care (01) | DRG 166 ==
LOC: ED 10:07 → 2N 14:19 → SUATTDRO 14:19 → 2N 16:04

== ENCOUNTER 2019-01-14 10:57 | Inpatient (IN) ==
[2019-01-14] MEDS ORDERED: SODIUM CHLORIDE 0.9% 500 ML IV SCH (11:30)
[2019-01-14 11:42] LABS: Basophils # (auto) 0.03 K/uL (0-0.2); Basophils % (auto) 0.2 %; Eosinophils # (auto) 0.49 K/uL (0-0.5); Eosinophils % (auto) 3.3 %; Hematocrit (blood only) 36.8 % (37-47); Immature Granulocytes # (auto) 0.14 K/uL (0.00-0.02); Immature Granulocytes % (auto) 0.9 %; Lymphocytes # (auto) 2.37 K/uL (1.2-3.4); Mean Corpuscular Hemoglobin 30.9 pg (25-34); Mean Corpuscular Hgb Conc 32.6 g/dL (32-36); Mean Corpuscular Volume 94.8 fL (80-100); Mean Platelet Volume 10.5 fL (7.4-10.4); Monocytes # (auto) 1.83 K/uL (0.11-0.59); Monocytes % (auto) 12.4 %; Neutrophils # (auto) 9.95 K/uL (1.4-6.5); Neutrophils % (auto) 67.2 %; Platelet Count 683 K/uL (130-400); RDW Coefficient of Variation 15.3 % (11.5-14.5); RDW Standard Deviation 52.4 fL (36.4-46.3); Red Blood Count 3.88 M/uL (4.2-5.4); White Blood Count 14.81 K/uL (4.8-10.8)
[2019-01-14 11:51] LABS: iSTAT Creatinine 1.2 mg/dl (0.6-1.3); iSTAT Hemoglobin 12.9 g/dl (12.0-16.0); iSTAT Ionized Calcium 1.12 mmol/l (1.12-1.32)
--- NOTE | 2019-01-14 11:56 | Emergency Department Note ---
Entered by You Anderson acting as a scribe for History of Present Illness General Chief complaint: Vomiting Stated complaint: VOMITING UP BROWN STUFF Source: family History of Present Illness Provider complaint: Vomiting Onset (ago): day(s) (Couple days ) Location: abdomen Radiation: non-radiation Pain Consistency: + intermittent Relieved By: + none Exacerbated By: + none Associated symptoms: + nausea/vomiting and + other (Positive fatigue) The patient is an 88 year old female who presents to the Emergency Room from [facility] with complaints of intermittent vomiting that has been ongoing for the past couple of days, per her family. The faculty at [facility] informed the patient's family that the vomit is sometimes what the patient just ate, but other times it "looks like coffee". The patient was evaluated in the medical center at [facility] but was sent here for concern of a GI bleed. The patient states that since the onset of her vomiting, she has had abdominal pain and has been more fatigued. The patient also mentioned that she has increased lower extremity swelling. Per the family, the patient has never followed up with GI and has no history of GI bleeds. She is not on any blood thinners. She denies any chest pain or headache at this time. Home Medications Home Medications Medication Instructions Recorded Confirmed Type PreserVision AREDS 1 tab PO QAM 07/19/18 01/14/19 History Travatan Z 1 drp OPB HS 07/19/18 01/14/19 History aspirin 81 mg PO QAM 07/19/18 01/14/19 History cholecalciferol (vitamin D3) 1,000 1,000 unit PO DAILY@1700 cap 11/22/18 01/14/19 History unit capsule famotidine 20 mg tablet 20 mg PO Q12 PRN #60 tab 11/22/18 01/14/19 Rx hydrochlorothiazide 25 mg tablet 25 mg PO QAM #30 tab 11/22/18 01/14/19 Rx lorazepam 0.5 mg tablet 0.5 mg PO DAILY PRN #30 tab 11/22/18 01/14/19 Rx carvedilol [Coreg] 3.125 mg PO BIDM 01/14/19 01/14/19 History escitalopram oxalate 10 mg PO QAM 01/14/19 01/14/19 History fluticasone furoate-vilanterol 1 puffs INH QAM 01/14/19 01/14/19 History [Breo Ellipta] furosemide 20 mg PO MOWEFR 01/14/19 01/14/19 History losartan 25 mg PO HS 01/14/19 01/14/19 History nystatin 1 applic TOPICAL BID 01/14/19 01/14/19 History Allergies Allergy/AdvReac Type Severity Reaction Status Date / Time clindamycin Allergy Severe SHORTNESS Verified 01/14/19 12:06 OF BREATH Cephalosporins Allergy Intermediate RASH-UPSET Verified 01/14/19 12:06 STOMACH Penicillins Allergy Intermediate RASH-UPSET Verified 01/14/19 12:06 STOMACH sulfamethoxazole AdvReac Intermediate Vomiting Verified 01/14/19 12:06 [From Bactrim] trimethoprim [From Bactrim] AdvReac Intermediate Vomiting Verified 01/14/19 12:0 6 aspirin AdvReac Mild burning is Verified 01/14/19 12:06 stomach Past Med/Surg History Medical History Urine incontinence (Acute) Anxiety (Acute) Hearing loss (Chronic) Aphasia (Acute 04/01/13) Dysphagia (Acute 04/01/13) Hypertension (Acute 04/01/13) Right inguinal hernia (Acute) TIA (transient ischemic attack) (Acute) ASCVD (arteriosclerotic cardiovascular disease) CAD (coronary artery disease) Dementia GERD (gastroesophageal reflux disease) Surgical History No pertinent past surgical history Family History Other No pertinent family history Social History Preferred Language: Chinese Communication Ability: Effective Hearing Ability: Use of Hearing Aid 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 and A total of 10 systems reviewed and were otherwise negative Physical Exam Vital Signs Vital Signs - 24 hr 01/14/19 11:06 01/14/19 11:32 01/14/19 11:35 Temperature 36.6 C Temperature Source Oral Sepsis Recent Fever Within 48 Hours No Sepsis Action Taken by Nursing No Action Required Pulse Rate 75 70 71 Pulse Rate from SpO2 Sensor 69 71 Pulse Rhythm Respiratory Rate 19 20 20 Respiratory Depth Normal Blood Pressure 149/84 H 130/66 Blood Pressure Mean 105 87 Pulse Oximetry 93 93 92 Oxygen Delivery Method 01/14/19 12:00 01/14/19 12:34 01/14/19 13:04 Temperature Temperature Source Sepsis Recent Fever Within 48 Hours Sepsis Action Taken by Nursing Pulse Rate 71 85 88 Pulse Rate from SpO2 Sensor 66 88 Pulse Rhythm Respiratory Rate 27 H 22 17 Respiratory Depth Blood Pressure 153/75 H Blood Pressure Mean 101 Pulse Oximetry 92 88 L Oxygen Delivery Method 01/14/19 13:30 01/14/19 13:33 Temperature Temperature Source Sepsis Recent Fever Within 48 Hours Sepsis Action Taken by Nursing Pulse Rate 78 79 Pulse Rate from SpO2 Sensor 78 Pulse Rhythm Regular Respiratory Rate 20 22 Respiratory Depth Blood Pressure 166/78 H Blood Pressure Mean 107 Pulse Oximetry 92 91 Oxygen Delivery Method Room Air GENERAL: Patient is awake alert in no acute distress patient is resting comfortably and showing no signs of anxiety EYES: The conjunctivae are clear. The pupils are round and reactive. EARS, NOSE, MOUTH AND THROAT: The nose is without any evidence of any deformity. Mucous membranes are moist tongue is midline NECK: The neck is nontender and supple. RESPIRATORY: Normal respiratory effort is noted there is no evidence of wheezing rhonchi or rales CARDIOVASCULAR: Regular rate and rhythm noted there no murmurs rubs or gallops normal S1 normal S2 GASTROINTESTINAL: The abdomen is moderately distended and diffusely tender. There is no guarding or rigidity noted. RECTAL: Dark stool. Heme positive. MUSCULOSKELETAL/EXTREMITIES: There is no evidence of gross deformity full range of motion is noted in the hips and shoulders SKIN: There is no obvious evidence of any rash. Pedal edema was noted bilaterally. NEUROLOGIC: Patient is awake alert and oriented to person place and situation. Strength is symmetric. Course 1117: Past medical records reviewed. The patient was evaluated in room C07, and a complete history and physical examination were performed. 1250: I reevaluated the patient and she is resting in bed. I updated her on lab and imaging results. We also discussed the treatment plan and she fully agrees. 1315: I spoke to Dr. Brady Mclean [facility] Hospitalist about the patient's case. She is going to accept the patient for further evaluation. Consultations Consultation #1: I spoke to [facility]. Abreu [facility] Hospitalist about the patient's case. She is going to accept the patient for further evaluation. Time: 13:15 Administered Medications Carvedilol (Coreg) 3.125 mg PO BIDM RAI Stop: 02/13/19 16:59 Last Admin: 01/14/19 17:45 Dose: 3.125 mg Documented by: [id number] Pantoprazole Sodium 40 mg/ (Dextrose) 100 mls @ 20 mls/hr IV Q5H RAI Stop: 01/14/19 18:44 Last Admin: 01/14/19 17:33 Dose: Not Given Documented by: [id number] Pantoprazole Sodium 40 mg/ (Syringe) 10 mls @ 5 mls/min IV BID@0900,2100 [facility] Stop: 02/13/19 20:59 Last Admin: 01/14/19 17:33 Dose: Not Given Documented by: [id number] Potassium Chloride/Dextrose/Sod Cl (D5nss + 20meq Kcl) 20 meq in 1,000 mls @ 80 mls/hr IV .Q17L64M RAI Stop: 02/13/19 16:35 Last Admin: 01/14/19 17:45 Dose: 80 mls/hr Documented by: [id number] Ioversol (Optiray 320 100ml) 94 ml IV ONCE PRN PRN Reason: Interaction Checking Stop: 01/18/19 12:25 Last Admin: 01/14/19 12:26 Dose: 94 ml Documented by: [id number] Discontinued Medications Sodium Chloride (Nss) 500 mls @ 999 mls/hr IV .Q31M RAI Stop: 01/14/19 12:00 Last Infusion: 01/14/19 12:36 Dose: 0 mls/hr Documented by: [id number] Admin: 01/14/19 11:59 Dose: 999 mls/hr Documented by: [id number] Famotidine (Pepcid 20mg Iv Push) 20 mg in 5 mls @ 2.5 mls/min IV NOW STA Stop: 01/14/19 13:11 Last Admin: 01/14/19 13:37 Dose: 2.5 mls/min Documented by: [id number] Pantoprazole Sodium 80 mg/ (Dextrose) 120 mls @ 480 mls/hr IV TODAY@1330 RAI Stop: 01/14/19 13:44 Last Infusion: 01/14/19 13:59 Dose: 0 mls/hr Documented by: [id number] Admin: 01/14/19 13:42 Dose: 480 mls/hr Documented by: [id number] Medical Decision Making Differential Diagnosis Differential: Gastroenteritis, Food Borne, Esophageal Perforation, , Electrolyte Abnormality, Dehydration, Intraabdominal Infection, UTI/Pyelonephritis, Bowel Obstruction, Biliary Pathology, amongst other pathology entertained. Medical Records Attestation: I reviewed the patient's medical records. Home Medications Current Medication List: was personally reviewed by me Laboratory Data Attestation: I reviewed the patient's lab results. Result diagrams: 01/14/19 11:33 01/14/19 11:33 Lab Results 01/14/19 01/14/19 01/14/19 Range/Units 11:33 11:33 11:33 WBC 14.81 H (4.8-10.8) K/uL RBC 3.88 L (4.2-5.4) M/uL Hgb 12.0 (12.0-16.0) g/dL POC Hgb (12.0-16.0) g/dl Hct 36.8 L (37-47) % POC Hct (37-47) % MCV 94.8 (80-100) fL MCH 30.9 (25-34) pg MCHC 32.6 (32-36) g/dL RDW Std Deviation 52.4 H (36.4-46.3) fL RDW Coeff of Mandi 15.3 H (11.5-14.5) % Plt Count 683 H (130-400) K/uL MPV 10.5 H (7.4-10.4) fL Immature Gran % (Auto) 0.9 % Neut % (Auto) 67.2 % Lymph % (Auto) 16.0 % Adair % (Auto) 12.4 % Eos % (Auto) 3.3 % Baso % (Auto) 0.2 % Immature Gran # (Auto) 0.14 H (0.00-0.02) K/uL Neut # (Auto) 9.95 H (1.4-6.5) K/uL Lymph # (Auto) 2.37 (1.2-3.4) K/uL Adair # (Auto) 1.83 H (0.11-0.59) K/uL Eos # (Auto) 0.49 (0-0.5) K/uL Baso # (Auto) 0.03 (0-0.2) K/uL PT 10.7 (9.0-12.0) Seconds INR 1.0 (0.9-1.1) APTT 27.1 (21.0-31.0) Seconds PTT Ratio 1.0 POC Sodium (135-144) mEq/L Sodium 138 (136-145) mmol/L POC Potassium (3.3-5.0) mEq/L Potassium 4.0 (3.5-5.1) mmol/L POC Chloride (101-112) mEq/L Chloride 99 (98-107) mmol/L Carbon Dioxide 33 H (21-32) mmol/L POC Total CO2 (24-31) mEq/l Anion Gap 6.0 (3-11) POC Anion Gap (16-25) mmol/L POC BUN (7-18) mg/dl BUN 19 H (7-18) mg/dl Creatinine 1.04 (0.6-1.2) mg/dl POC Creatinine (0.6-1.3) mg/dl Est Cr Clr Drug Dosing 37.5 ml/min Est GFR ( Amer) 55.6 Est GFR (Non-Af Amer) 47.9 BUN/Creatinine Ratio 18.2 (10-20) Glucose 94 (70-99) mg/dl POC Glucose (other) (70-99) mg/dl Calcium 8.7 (8.5-10.1) mg/dl POC Ioniz Calcium Carey (1.12-1.32) mmol/l Total Bilirubin 0.4 (0.2-1) mg/dl AST 12 L (15-37) U/L ALT 17 (12-78) U/L Alkaline Phosphatase 82 (45-117) U/L Troponin I < 0.015 (0-0.045) ng/ml Total Protein 6.0 L (6.4-8.2) gm/dl Albumin 3.2 L (3.4-5.0) gm/dl Globulin 2.8 (2.5-4.0) gm/dl Albumin/Globulin Ratio 1.1 (0.9-2) Lipase 57 L (73-393) U/L Urine Color Urine Appearance (Clear) Urine pH (4.5-7.5) Ur Specific Jackson (1.000-1.030) Urine Protein (Negative) Urine Glucose (UA) (Negative) Urine Ketones (Negative) Urine Blood (Negative) Urine Nitrite (Negative) Urine Bilirubin (Negative) Urine Urobilinogen (Negative) Ur Leukocyte Esterase (Negative) Urine WBC (Auto) (0-5) /hpf Urine RBC (Auto) (0-4) /hpf U Hyaline Cast (Auto) (0-5) /lpf U Epithel Cells (Auto) (0-5) /lpf Urine Bacteria (Auto) (Negative) 01/14/19 01/14/19 Range/Units 11:38 13:06 WBC (4.8-10.8) K/uL RBC (4.2-5.4) M/uL Hgb (12.0-16.0) g/dL POC Hgb 12.9 (12.0-16.0) g/dl Hct (37-47) % POC Hct 38 (37-47) % MCV (80-100) fL MCH (25-34) pg MCHC (32-36) g/dL RDW Std Deviation (36.4-46.3) fL RDW Coeff of Mandi (11.5-14.5) % Plt Count (130-400) K/uL MPV (7.4-10.4) fL Immature Gran % (Auto) % Neut % (Auto) % Lymph % (Auto) % Adair % (Auto) % Eos % (Auto) % Baso % (Auto) % Immature Gran # (Auto) (0.00-0.02) K/uL Neut # (Auto) (1.4-6.5) K/uL Lymph # (Auto) (1.2-3.4) K/uL Adair # (Auto) (0.11-0.59) K/uL Eos # (Auto) (0-0.5) K/uL Baso # (Auto) (0-0.2) K/uL PT (9.0-12.0) Seconds INR (0.9-1.1) APTT (21.0-31.0) Seconds PTT Ratio POC Sodium 136 (135-144) mEq/L Sodium (136-145) mmol/L POC Potassium 4.0 (3.3-5.0) mEq/L Potassium (3.5-5.1) mmol/L POC Chloride 95 L (101-112) mEq/L Chloride (98-107) mmol/L Carbon Dioxide (21-32) mmol/L POC Total CO2 30 (24-31) mEq/l Anion Gap (3-11) POC Anion Gap 16.0 (16-25) mmol/L POC BUN 18 (7-18) mg/dl BUN (7-18) mg/dl Creatinine (0.6-1.2) mg/dl POC Creatinine 1.2 (0.6-1.3) mg/dl Est Cr Clr Drug Dosing ml/min Est GFR ( Amer) Est GFR (Non-Af Amer) BUN/Creatinine Ratio (10-20) Glucose (70-99) mg/dl POC Glucose (other) 97 (70-99) mg/dl Calcium (8.5-10.1) mg/dl POC Ioniz Calcium Carey 1.12 (1.12-1.32) mmol/l Total Bilirubin (0.2-1) mg/dl AST (15-37) U/L ALT (12-78) U/L Alkaline Phosphatase (45-117) U/L Troponin I (0-0.045) ng/ml Total Protein (6.4-8.2) gm/dl Albumin (3.4-5.0) gm/dl Globulin (2.5-4.0) gm/dl Albumin/Globulin Ratio (0.9-2) Lipase (73-393) U/L Urine Color Yellow Urine Appearance Clear (Clear) Urine pH 8.0 H (4.5-7.5) Ur Specific Jackson 1.018 (1.000-1.030) Urine Protein Negative (Negative) Urine Glucose (UA) Negative (Negative) Urine Ketones Negative (Negative) Urine Blood Negative (Negative) Urine Nitrite Negative (Negative) Urine Bilirubin Negative (Negative) Urine Urobilinogen Negative (Negative) Ur Leukocyte Esterase 3+ H (Negative) Urine WBC (Auto) >30 H (0-5) /hpf Urine RBC (Auto) 0-4 (0-4) /hpf U Hyaline Cast (Auto) 1-5 (0-5) /lpf U Epithel Cells (Auto) 5-10 H (0-5) /lpf Urine Bacteria (Auto) 2+ H (Negative) Imaging Data Radiologist's Impression: Radiology results as stated below per my review and the radiologist's interpretation: XR chest 1V portable CLINICAL HISTORY: sent for workup by PCP nausea. Vomiting. COMPARISON STUDY: 09/20/2018 FINDINGS: Mild chronic bibasilar interstitial prominence. No focal infiltrate. Diaphragms are smooth. IMPRESSION: Chronic changes. No acute process. The above report was generated using voice recognition software. It may contain grammatical, syntax or spelling errors. Electronically signed by: David Escamilla M.D. 01/14/2019 11:54 AM ABDOMEN AND PELVIS CT WITH IV CONTRAST CT DOSE: 576.88 mGy.cm HISTORY: Acute vomiting with nausea and acute generalized abdominal pain. vomiting TECHNIQUE: Multiaxial CT images of the abdomen and pelvis were performed following the use of intravenous contrast. A dose lowering technique was utilized adhering to the principles of ALARA. COMPARISON STUDY: CT abdomen and pelvis 09/02/2016 FINDINGS: There is mild bibasilar bronchial wall thickening. Subsegmental consolidation suggestive of atelectasis/scarring of the inferior segment lingula. There is no pneumatosis or pneumoperitoneum. Inferior cardiac chambers are unremarkable. Coronary arterial calcifications are noted. Suggestion of hepatic steatosis. Indeterminate 6 mm hypodense lesion of the inferior right hepatic lobe is unchanged and likely benign. Mild generalized pancreatic atrophy. Adrenal glands are unremarkable. Mild nonspecific bilateral perinephric stranding. Cortical scarring of the superior pole left kidney. No renal or ureteral calculi or obstructive uropathy. Ureters appear unremarkable. Mild nonspecific bladder wall thickening. There is a large partially calcified mass of the central pelvis anterior to the uterine fundus, 9.7 x 7.8 x 6.3 cm suggestive of a calcified pedunculated or subserosal fibroid. Mild thickening of the fundal endometrium, 7 mm. No adnexal mass lesions. Moderate calcified plaque of the aorta without aneurysm. Moderate distal esophageal wall thickening with small hiatal hernia. Mild paraesophageal inflammatory stranding. Distal esophageal lymph node measures 7 mm. No bowel obstruction or bowel wall thickening. Terminal ileum is unremarkable. There is a moderate sized right inguinal hernia which contains mesenteric fat, nonobstructed loop of ileum and a noninflamed appendix. Partially imaged 7 mm lipoma of the left rectus femoris muscle. Soft tissues are unremarkable. Degenerative changes of the pelvis, spine and hips. No suspicious bone lesions. IMPRESSION: 1. Small hiatal hernia is noted in addition to moderate partially imaged distal esophageal wall thickening with mild periesophageal inflammation and prominent periesophageal lymph node. Correlate clinically to exclude esophagitis. These findings could also be further evaluated with endoscopy to exclude underlying mass. 2. No bowel obstruction or bowel wall thickening. 3. Moderate-sized right inguinal hernia contains mesenteric fat, nonobstructed ileum and noninflamed appendix. 4. 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 5. Mild thickening of the fundal endometrium. 6. Additional findings as above. Electronically signed by: Leon Carty M.D. 01/14/2019 12:49 PM ECG Data Attestation: I personally reviewed and interpreted this ECG as follows: Indication: vomiting Rate (beats per minute): 70 Rhythm: sinus rhythm Findings: + PVC and + ST depression (Inferior and lateral) Comparison ECG Date: from (09/15/18) Change: no significant change Blood Pressure Blood Pressure Findings: Elevated blood pressure Blood Pressure Disposition: Referred to patients primary care provider MDM Narrative The patient is an 88-year-old female who presented to the emergency department for an evaluation of nausea vomiting. The patient had epigastric abdominal tenderness. It was reported from her personal skilled nursing that she had coffee- ground emesis. The patient presented initially to her primary care physician. She was sent to the emergency department for further evaluation. It does not appear that a rectal exam was done at the primary care's office. Rectal exam here revealed heme positive stool which was dark. The patient does have a history of hiatal hernia. She was started on a proton pump inhibitor as well as an H2 willy. She was treated with IV anabiotic's. She had an elevated white blood cell count. Her vital signs as well as her hemoglobin are stable at this time. I discussed the patient's laboratory and radiographic studies with her. I discussed her case with her family members as well. Given the patient's findings on CT I discussed her case with the on-call [facility] hospitalist. They have agreed to evaluate the patient in the emergency department for further management disposition. The patient was reevaluated multiple times. Impression & Plan Acute upper GI bleed, Abdominal pain, Esophagitis, Nausea & vomiting Discharge Plan Visit Data *Final* Discharge Date/Time: 01/14/19 15:41 Chief Complaint: Vomiting Stated Complaint: VOMITING UP BROWN STUFF ED Provider: Fred Torres Discharge Problem: Acute upper GI bleed, Abdominal pain, Esophagitis, Nausea & vomiting Patient Disposition: Admitted As Inpatient Discharge Instructions Interventions: ED Discharge Assessment Last Done: 01/14/19 15:41 Discharge Problem: Abdominal pain Qualifiers: Abdominal location: unspecified location Qualified Code(s): R10.9 - Unspecified abdominal pain Nausea & vomiting Qualifiers: Vomiting type: unspecified Vomiting Intractability: non-intractable Qualified Code(s): R11.2 - Nausea with vomiting, unspecified The scribe's documentation has been prepared under my direction and personally reviewed by me in its entirety. I confirm that the note above accurately reflects all work, treatment, procedures, and medical decision making performed by me.
[2019-01-14 12:00] LABS: Alanine Aminotransferase 17 U/L (12-78); Albumin Level 3.2 gm/dl (3.4-5.0); Aspartate Aminotransferase 12 U/L (15-37); BUN Creatinine Ratio 18.2 (10-20); Blood Urea Nitrogen 19 mg/dl (7-18); Calcium 8.7 mg/dl (8.5-10.1); Carbon Dioxide 33 mmol/L (21-32); Chloride 99 mmol/L (98-107); Creatinine Clr Calc Pharmacy 37.5 ml/min; Est GFR (African American) 55.6; Est GFR (Non-African American) 47.9; Glucose 94 mg/dl (70-99); Lipase 57 U/L (73-393); Partial Thromboplastin Time 27.1 Seconds (21.0-31.0); Prothrombin Time 10.7 Seconds (9.0-12.0); Sodium 138 mmol/L (136-145)
[2019-01-14 12:05] LABS: Albumin Globulin Ratio 1.1 (0.9-2); Alkaline Phosphatase 82 U/L (45-117); Bilirubin,Total 0.4 mg/dl (0.2-1); Globulin 2.8 gm/dl (2.5-4.0); Troponin I < 0.015 ng/ml (0-0.045)
[2019-01-14] MEDS ORDERED: IOVERSOL 100ml IV PRN (12:26)
--- NOTE | 2019-01-14 12:50 | CT Scan Report ---
ABDOMEN AND PELVIS CT WITH IV CONTRAST CT DOSE: 576.88 mGy.cm HISTORY: Acute vomiting with nausea and acute generalized abdominal pain. vomiting TECHNIQUE: Multiaxial CT images of the abdomen and pelvis were performed following the use of intrave nous contrast. A dose lowering technique was utilized adhering to the principles of ALARA. COMPARISON STUDY: CT abdomen and pelvis 09/02/2016 FINDINGS: There is mild bibasilar bronchial wall thickening. Subsegmental consolidation suggestive of atelectas is/scarring of the inferior segment lingula. There is no pneumatosis or pneumoperitoneum. Inferior ca rdiac chambers are unremarkable. Coronary arterial calcifications are noted. Suggestion of hepatic st eatosis. Indeterminate 6 mm hypodense lesion of the inferior right hepatic lobe is unchanged and like ly benign. Mild generalized pancreatic atrophy. Adrenal glands are unremarkable. Mild nonspecific meka ateral perinephric stranding. Cortical scarring of the superior pole left kidney. No renal or uretera l calculi or obstructive uropathy. Ureters appear unremarkable. Mild nonspecific bladder wall thicken ing. There is a large partially calcified mass of the central pelvis anterior to the uterine fundus, 9.7 x 7.8 x 6.3 cm suggestive of a calcified pedunculated or subserosal fibroid. Mild thickening of t he fundal endometrium, 7 mm. No adnexal mass lesions. Moderate calcified plaque of the aorta without aneurysm. Moderate distal esophageal wall thickening with small hiatal hernia. Mild paraesophageal inflammatory stranding. Distal esophageal lymph node measures 7 mm. No bowel obstruction or bowel wall thickening . Terminal ileum is unremarkable. There is a moderate sized right inguinal hernia which contains mese nteric fat, nonobstructed loop of ileum and a noninflamed appendix. Partially imaged 7 mm lipoma of t he left rectus femoris muscle. Soft tissues are unremarkable. Degenerative changes of the pelvis, spi ne and hips. No suspicious bone lesions. IMPRESSION: 1. Small hiatal hernia is noted in addition to moderate partially imaged distal esophageal wall thick ening with mild periesophageal inflammation and prominent periesophageal lymph node. Correlate clinic ally to exclude esophagitis. These findings could also be further evaluated with endoscopy to exclude underlying mass. 2. No bowel obstruction or bowel wall thickening. 3. Moderate-sized right inguinal hernia contains mesenteric fat, nonobstructed ileum and noninflamed appendix. 4. 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 5. Mild thickening of the fundal endometrium. 6. Additional findings as above. Electronically signed by: Leon Carty M.D. 01/14/2019 12:49 PM
[2019-01-14] MEDS ORDERED: FAMOTIDINE 20MG IV PUSH 20 MG/5 ML SYR IV STA (13:10)
[2019-01-14] MEDS ORDERED: PANTOprazole 80 MG in DEXTROSE 5% 100 ML IV SCH (13:30)
[2019-01-14] MEDS ORDERED: PANTOprazole 40 MG in DEXTROSE 5% 100 ML IV SCH (13:45)
[2019-01-14 13:54] LABS: Appearance Urine Clear (Clear); Bacteria Urine Automated 2+ (Negative); Bilirubin Urine Negative (Negative); Blood Urine Negative (Negative); Color Urine Yellow; Glucose Urine UA Negative (Negative); Ketones Urine Negative (Negative); Leukocyte Esterase Urine 3+ (Negative); Nitrite Urine Negative (Negative); Protein Urine Negative (Negative); RBC Urine Automated 0-4 /hpf (0-4); Specific Gravity Urine 1.018 (1.000-1.030); Urobilinogen Urine Negative (Negative); WBC Urine Automated >30 /hpf (0-5)
[2019-01-14] MEDS ORDERED: ACETAMINOPHEN 325 MG TAB PO PRN (16:36)
[2019-01-14] MEDS ORDERED: LORazepam 0.5 MG TAB PO PRN (16:36)
[2019-01-14] MEDS ORDERED: MAGNESIUM HYDROXIDE SUSP 30 ML UDC PO PRN (16:36)
[2019-01-14] MEDS ORDERED: ONDANSETRON INJ 2 MG/ML 2 ML VIAL IV PRN (16:36)
[2019-01-14] MEDS: PANTOprazole 40 MG in SYRINGE 0 ML IV SCH (17:33)
[2019-01-14] MEDS: CARVEDILOL 3.125 MG TAB PO SCH (17:45)
[2019-01-14] MEDS: D5NSS + 20MEQ KCL 20 MEQ/1,000 ML BAG IV SCH (17:45)
[2019-01-14] MEDS ORDERED: LORazepam 0.5 MG/1 ML VIAL IV PRN (19:47)
--- NOTE | 2019-01-14 19:47 | History & Physical Report ---
Date of Service January 14, 2019 Assessment & Plan (1) Coffee ground vomiting: Hb 12.0 on admission, but heme + in the ED Monitor with NPO, IVF, protonix BID push Repeat Hb in AM Bleeding possibly related to irritation in the setting of ongoing emesis with aspirin use GI c/s pending Holding aspirin (2) Anxiety: continue home meds (3) Hypertension: continue home meds (4) TIA (transient ischemic attack): Aspirin 81mg, hold (5) GERD (gastroesophageal reflux disease): Holding given protonix drip (6) DVT prophylaxis: SCDs given above History of Present Illness Primary Care Provider: Beau Thompson MD 88 y/o F who was sent to the ED from her [facility] for coffee ground emesis. Pt is unable to provide any details due to dementia. She states that she feels fine at present. Pt denies fever, SOB, chest pain, abd pain, n/v/c/d, LE pain or swelling. Family states that she has been having intermittent emesis over the last month or so. It was not daily and there was nothing specific noted to be causing it. She would have mild abd pain with this, but was otherwise tolerating PO. Over the last week she apparently started having emesis daily, family is uncertain how many times a day. They were called this AM because pt was reported to have had coffee ground emesis yesterday. She had emesis this AM immediately after eating, so it was unclear it there was coffee ground appearance or not. No hx of similar issues. She was apparently SOB to the bathroom today. Pt has dementia at baseline and they feel she is at her usual. Allergies Allergy/AdvReac Type Severity Reaction Status Date / Time clindamycin Allergy Severe SHORTNESS Verified 01/14/19 12:06 OF BREATH Cephalosporins Allergy Intermediate RASH-UPSET Verified 01/14/19 12:06 STOMACH Penicillins Allergy Intermediate RASH-UPSET Verified 01/14/19 12:06 STOMACH sulfamethoxazole AdvReac Intermediate Vomiting Verified 01/14/19 12:06 [From Bactrim] trimethoprim [From Bactrim] AdvReac Intermediate Vomiting Verified 01/14/19 12:06 aspirin AdvReac Mild burning is Verified 01/14/19 12:06 stomach Home Medications Home Medications Medication Instructions Recorded Confirmed Type PreserVision AREDS 1 tab PO QAM 07/19/18 01/14/19 History Travatan Z 1 drp OPB HS 07/19/18 01/14/19 History aspirin 81 mg PO QAM 07/19/18 01/14/19 History cholecalciferol (vitamin D3) 1,000 1,000 unit PO DAILY@1700 cap 11/22/18 01/14/19 History unit capsule famotidine 20 mg tablet 20 mg PO Q12 PRN #60 tab 11/22/18 01/14/19 Rx hydrochlorothiazide 25 mg tablet 25 mg PO QAM #30 tab 11/22/18 01/14/19 Rx lorazepam 0.5 mg tablet 0.5 mg PO DAILY PRN #30 tab 11/22/18 01/14/19 Rx carvedilol [Coreg] 3.125 mg PO BIDM 01/14/19 01/14/19 History escitalopram oxalate 10 mg PO QAM 01/14/19 01/14/19 History fluticasone furoate-vilanterol 1 puffs INH QAM 01/14/19 01/14/19 History [Breo Ellipta] furosemide 20 mg PO MOWEFR 01/14/19 01/14/19 History losartan 25 mg PO HS 01/14/19 01/14/19 History nystatin 1 applic TOPICAL BID 01/14/19 01/14/19 History Past Med/Surg History Medical History Urine incontinence (Acute) Anxiety (Acute) Hearing loss (Chronic) Aphasia (Acute 04/01/13) Dysphagia (Acute 04/01/13) Hypertension (Acute 04/01/13) Right inguinal hernia (Acute) TIA (transient ischemic attack) (Acute) ASCVD (arteriosclerotic cardiovascular disease) CAD (coronary artery disease) Dementia GERD (gastroesophageal reflux disease) Surgical History No pertinent past surgical history Family History Mother Breast cancer Other No pertinent family history Social History Preferred Language: Maori Communication Ability: Effective Hearing Ability: Use of Hearing Aid Design Eng Required: No Beliefs That Will Affect Care: None marital status: / Current Living Situation: Personal Care Facility Current Living Situation Comment: [facility] current occupational status: retired Other Information That Helps Us Care for You: No Feels Safe at Home: Yes Safety Concerns: Feels Safe At This Time Smoking Status: Never smoker Second Hand Exposure: No ; Hx Alcohol Use: No Hx Substance Use: No Review of Systems Review of Systems: Pertinent positives and negatives reviewed in HPI--all others negative Physical Exam Constitutional: WD/WN, vitals as above Eyes: normal visual lozano by confrontation and + anicteric sclerae Neck: normal visual inspection and trachea midline Respiratory: normal respiratory effort, lungs clear to auscultation Cardiovascular: Rate/Rhythm: regular rate and regular rhythm Gastrointestinal (Abdomen): Inspection/Auscultation: + abdomen distended Percussion/Palpation: abdomen soft; abdomen nontender Musculoskeletal: Head/Neck/Chest: normocephalic and head atraumatic negative for edema, peripheral pulses intact Skin: no rashes, warm and dry Neurologic: awake; not confused Speech / Cognition: normal speech Psychiatric: Orientation: oriented to person and cooperative; + not oriented to place and + not oriented to time Affect: euthymic affect Results & Data Vital Signs (Past 12 Hours) Vital Signs Temp Pulse Pulse Resp BP BP BP 01/14/19 19:36 37.0 C 69 22 170/105 H 155/75 H 01/14/19 16:27 36.5 C 67 20 151/71 H 01/14/19 15:30 69 17 01/14/19 15:00 69 18 174/93 H 01/14/19 14:32 73 19 01/14/19 14:31 86 24 160/75 H 01/14/19 14:30 71 16 01/14/19 14:00 79 20 172/81 H 01/14/19 13:33 79 22 01/14/19 13:30 78 20 166/78 H 01/14/19 13:04 88 17 01/14/19 12:34 85 22 01/14/19 12:00 71 27 H 153/75 H 01/14/19 11:35 71 20 01/14/19 11:32 70 20 130/66 01/14/19 11:06 36.6 C 75 19 149/84 H Pulse Ox 01/14/19 19:36 94 01/14/19 16:27 94 01/14/19 15:30 92 01/14/19 15:00 92 01/14/19 14:32 95 01/14/19 14:31 95 01/14/19 14:30 93 01/14/19 14:00 93 01/14/19 13:33 91 01/14/19 13:30 92 01/14/19 13:04 88 L 01/14/19 12:34 01/14/19 12:00 92 01/14/19 11:35 92 01/14/19 11:32 93 01/14/19 11:06 93 Diagnostic Findings CXR: neg for acute CTAP: possible esophagitis, small hiatal hernia ECG Findings: + PVC Code Status & VTE Plan Code Status Full code VTE Prophylaxis Plan VTE Prophylaxis will be ordered: Yes PG Care Time/CCT Total # of Minutes Spent Total Time Spent with Patient: Total time spent is greater than 50% in coordination of care (as documented) at patient's floor/unit and/or counseling patient:
[2019-01-14] MEDS: NYSTATIN POWDER 15GM BTL EXT SCH (20:50)
[2019-01-14] MEDS: TRAVOPROST Z 0.004% OPH SOLN 2.5 ML BTL OPB SCH (20:50)
[2019-01-14] MEDS: LOSARTAN POTASSIUM 25 MG TAB PO SCH (20:51)
[2019-01-15] MEDS ORDERED: HALOPERIDOL LACTATE 5 MG/ML 1 ML VIAL IM STA (01:42)
[2019-01-15] MEDS: D5NSS + 20MEQ KCL 20 MEQ/1,000 ML BAG IV SCH ×2 (06:21→21:06)
[2019-01-15 06:58] LABS: Basophils # (auto) 0.02 K/uL (0-0.2); Basophils % (auto) 0.2 %; Eosinophils # (auto) 0.44 K/uL (0-0.5); Eosinophils % (auto) 4.1 %; Hematocrit (blood only) 33.4 % (37-47); Hemoglobin 10.6 g/dL (12.0-16.0); Immature Granulocytes % (auto) 0.9 %; Lymphocytes # (auto) 1.85 K/uL (1.2-3.4); Lymphocytes % (auto) 17.4 %; Mean Corpuscular Hemoglobin 30.2 pg (25-34); Mean Corpuscular Hgb Conc 31.7 g/dL (32-36); Mean Corpuscular Volume 95.2 fL (80-100); Mean Platelet Volume 10.5 fL (7.4-10.4); Monocytes # (auto) 1.23 K/uL (0.11-0.59); Monocytes % (auto) 11.5 %; Neutrophils # (auto) 7.02 K/uL (1.4-6.5); Neutrophils % (auto) 65.9 %; Platelet Count 633 K/uL (130-400); RDW Coefficient of Variation 15.3 % (11.5-14.5); RDW Standard Deviation 52.3 fL (36.4-46.3); Red Blood Count 3.51 M/uL (4.2-5.4); White Blood Count 10.66 K/uL (4.8-10.8)
[2019-01-15 07:29] LABS: BUN Creatinine Ratio 12.7 (10-20); Calcium 8.2 mg/dl (8.5-10.1); Creatinine Clr Calc Pharmacy 38.2 ml/min; Est GFR (African American) 57.6; Est GFR (Non-African American) 49.7
[2019-01-15 07:30] LABS: Phosphorus 3.3 mg/dl (2.5-4.9)
[2019-01-15] MEDS: CEROVITE ADV FORMULA TAB PO SCH (08:44)
[2019-01-15] MEDS: ESCITALOPRAM OXALATE 10 MG TAB PO SCH (08:44)
[2019-01-15] MEDS: hydroCHLOROthiazide 25 MG TAB PO SCH (08:44)
[2019-01-15] MEDS: CARVEDILOL 3.125 MG TAB PO SCH ×2 (08:44→16:37)
[2019-01-15] MEDS: FUROSEMIDE 10 MG in SYRINGE 0 ML IV SCH (08:44)
[2019-01-15] MEDS: NYSTATIN POWDER 15GM BTL EXT SCH ×2 (08:44→21:56)
[2019-01-15] MEDS: PANTOprazole 40 MG in SYRINGE 0 ML IV SCH ×2 (09:22→21:00)
--- NOTE | 2019-01-15 10:26 | Gastrointestinal Consultation ---
Date of Consultation January 15, 2019 Assessment & Plan (1) Coffee ground vomitin88 year old female with history of GERD, CAD, dementia who presents through the ED for evaluation of coffee ground emesis prior to arrival, CT w/ ?esophagitis and HH. Vitals stable but drifting down HGB, normal BUN. DDX discussed. NPO EGD today to rule out sinister pathology, high risk lesion etc IV PPI BID Trend HGB Transfuse PRN No NSAIDs, Would ask to hold AC if able Thank you for allowing us to participate in the care of this patient. Please call with any acute changes, questions or concerns. Please see addendum below with additional recommendation from my supervising physician. Present on Admission?: Yes Supervising Physician Co-Signing Physician Notes Patient referred for a history of coffee-ground emesis and esophageal wall thickening seen on CT scan. The patient and family report that she has had a vague epigastric discomfort and nausea for several weeks. Examination Elderly female in no obvious distress Abdomen soft Impression: Patient with a question of coffee-ground emesis and esophageal wall thickening seen on CT scan. We are planning for upper endoscopy to aid to evaluate for evidence of peptic ulcer disease or an active gastrointestinal bleeding lesion. Consent was obtained from the patient's family as she is unable to provide her own consent. We have discussed the risks of the procedure to include bleeding, infection, perforation and need for follow-up exams. History of Present Illness Reason for Consultation: coffee ground emesis Requesting Physician: Amena Attending Physician: Mejia Beckwith History of Present Illness 88 year old female with history of demetia and others below who presents from PCP office for evaluation of coffee ground emesis - GI asked to evaluate. Family at [facility]. Pt is a poor historian. history gathered from son. Who endorses ongoing nausea/vomiting decreased appetite and GERD x 1 month. He was made aware of increase in this over the past few days and concern for coffee ground emesis which prompted PCP and ED evaluation. Pt notes today she feels okay. There is some upper abdominal pain. No nausea/vomiting today. Last BM was yesterday, brown but heme + She denies fever, chills, CP, SOB CT: Small hiatal hernia is noted in addition to moderate partially imaged distal esophageal wall thickening with mild periesophageal inflammation and prominent periesophageal lymph node. Correlate clinically to exclude esophagitis. These findings could also be further evaluated with endoscopy to exclude underlying mass. No bowel obstruction or bowel wall thickening. Moderate-sized right inguinal hernia contains mesenteric fat, nonobstructed ileum and noninflamed appendix. 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 Mild thickening of the fundal endometrium. Additional findings as above. Allergies Allergy/AdvReac Type Severity Reaction Status Date / Time clindamycin Allergy Severe SHORTNESS Verified 01/15/19 11:26 OF BREATH Cephalosporins Allergy Intermediate RASH-UPSET Verified 01/15/19 11:26 STOMACH Penicillins Allergy Intermediate RASH-UPSET Verified 01/15/19 11:26 STOMACH sulfamethoxazole AdvReac Intermediate Vomiting Verified 01/15/19 11:26 [From Bactrim] trimethoprim [From Bactrim] AdvReac Intermediate Vomiting Verified 01/15/19 11:26 aspirin AdvReac Mild burning is Verified 01/15/19 11:26 stomach Home Medications Home Medications Medication Instructions Recorded Confirmed Type PreserVision AREDS 1 tab PO QAM 07/19/18 01/14/19 History Travatan Z 1 drp OPB HS 07/19/18 01/14/19 History aspirin 81 mg PO QAM 07/19/18 01/14/19 History cholecalciferol (vitamin D3) 1,000 1,000 unit PO DAILY@1700 cap 11/22/18 01/14/19 History unit capsule famotidine 20 mg tablet 20 mg PO Q12 PRN #60 tab 11/22/18 01/14/19 Rx hydrochlorothiazide 25 mg tablet 25 mg PO QAM #30 tab 11/22/18 01/14/19 Rx lorazepam 0.5 mg tablet 0.5 mg PO DAILY PRN #30 tab 11/22/18 01/14/19 Rx carvedilol [Coreg] 3.125 mg PO BIDM 01/14/19 01/14/19 History escitalopram oxalate 10 mg PO QAM 01/14/19 01/14/19 History fluticasone furoate-vilanterol 1 puffs INH QAM 01/14/19 01/14/19 History [Breo Ellipta] furosemide 20 mg PO MOWEFR 01/14/19 01/14/19 History losartan 25 mg PO HS 01/14/19 01/14/19 History nystatin 1 applic TOPICAL BID 01/14/19 01/14/19 History Patient History Medical History Urine incontinence (Acute) Anxiety (Acute) Hearing loss (Chronic) Aphasia (Acute 04/01/13) Dysphagia (Acute 04/01/13) Hypertension (Acute 04/01/13) Right inguinal hernia (Acute) TIA (transient ischemic attack) (Acute) ASCVD (arteriosclerotic cardiovascular disease) CAD (coronary artery disease) Dementia GERD (gastroesophageal reflux disease) Surgical History No pertinent past surgical history Family History Mother Breast cancer Other No pertinent family history Social History Preferred Language: Belarusian Communication Ability: Effective Hearing Ability: Use of Hearing Aid Strike Operations Officer Required: No Beliefs That Will Affect Care: None marital status: / Current Living Situation: Personal Care Facility Current Living Situation Comment: [facility] current occupational status: retired Other Information That Helps Us Care for You: No Feels Safe at Home: Yes Safety Concerns: Feels Safe At This Time Smoking Status: Never smoker Second Hand Exposure: No ; Hx Alcohol Use: No Hx Substance Use: No Review of Systems Constitutional: no fever and no chills Respiratory: no cough and no dyspnea Cardiovascular: no chest pain and no dyspnea on exertion Gastrointestinal: + abdominal pain, + heartburn and + nausea Physical Exam Constitutional: well nourished; no acute distress Respiratory: normal respiratory effort, lungs clear to auscultation Cardiovascular: Rate/Rhythm: regular rate and regular rhythm Gastrointestinal (Abdomen): Inspection/Auscultation: normal bowel sounds Percussion/Palpation: abdomen soft; no guarding and abdomen not rigid Skin: no rashes, warm and dry Results & Data Vital Signs (Past 12 Hours) Vital Signs Temp Pulse Pulse Resp BP Pulse Ox 01/15/19 07:50 36.9 C 82 18 158/82 H 01/15/19 07:43 77 01/15/19 04:00 36.8 C 75 20 130/72 94 01/14/19 23:30 78 Laboratory Results 01/15/19 01/15/19 01/14/19 Range/Units 06:32 06:32 13:06 WBC 10.66 (4.8-10.8) K/uL RBC 3.51 L (4.2-5.4) M/uL Hgb 10.6 L (12.0-16.0) g/dL POC Hgb (12.0-16.0) g/dl Hct 33.4 L (37-47) % POC Hct (37-47) % MCV 95.2 (80-100) fL MCH 30.2 (25-34) pg MCHC 31.7 L (32-36) g/dL RDW Std Deviation 52.3 H (36.4-46.3) fL RDW Coeff of Mandi 15.3 H (11.5-14.5) % Plt Count 633 H (130-400) K/uL MPV 10.5 H (7.4-10.4) fL Immature Gran % (Auto) 0.9 % Neut % (Auto) 65.9 % Lymph % (Auto) 17.4 % [place] % (Auto) 11.5 % Eos % (Auto) 4.1 % Baso % (Auto) 0.2 % Immature Gran # (Auto) 0.10 H (0.00-0.02) K/uL Neut # (Auto) 7.02 H (1.4-6.5) K/uL Lymph # (Auto) 1.85 (1.2-3.4) K/uL [place] # (Auto) 1.23 H (0.11-0.59) K/uL Eos # (Auto) 0.44 (0-0.5) K/uL Baso # (Auto) 0.02 (0-0.2) K/uL PT (9.0-12.0) Seconds INR (0.9-1.1) APTT (21.0-31.0) Seconds PTT Ratio POC Sodium (135-144) mEq/L Sodium 141 (136-145) mmol/L POC Potassium (3.3-5.0) mEq/L Potassium 4.0 (3.5-5.1) mmol/L POC Chloride (101-112) mEq/L Chloride 106 (98-107) mmol/L Carbon Dioxide 30 (21-32) mmol/L POC Total CO2 (24-31) mEq/l Anion Gap 5.0 (3-11) POC Anion Gap (16-25) mmol/L POC BUN (7-18) mg/dl BUN 13 (7-18) mg/dl Creatinine 1.01 (0.6-1.2) mg/dl POC Creatinine (0.6-1.3) mg/dl Est Cr Clr Drug Dosing 38.2 ml/min Est GFR ( Amer) 57.6 Est GFR (Non-Af Amer) 49.7 BUN/Creatinine Ratio 12.7 (10-20) Glucose 107 H (70-99) mg/dl POC Glucose (other) (70-99) mg/dl Calcium 8.2 L (8.5-10.1) mg/dl POC Ioniz Calcium Carey (1.12-1.32) mmol/l Phosphorus 3.3 (2.5-4.9) mg/dl Magnesium 2.0 (1.8-2.4) mg/dl Total Bilirubin (0.2-1) mg/dl AST (15-37) U/L ALT (12-78) U/L Alkaline Phosphatase (45-117) U/L Troponin I (0-0.045) ng/ml Total Protein (6.4-8.2) gm/dl Albumin (3.4-5.0) gm/dl Globulin (2.5-4.0) gm/dl Albumin/Globulin Ratio (0.9-2) Lipase (73-393) U/L Urine Color Yellow Urine Appearance Clear (Clear) Urine pH 8.0 H (4.5-7.5) Ur Specific [place] 1.018 (1.000-1.030) Urine Protein Negative (Negative) Urine Glucose (UA) Negative (Negative) Urine Ketones Negative (Negative) Urine Blood Negative (Negative) Urine Nitrite Negative (Negative) Urine Bilirubin Negative (Negative) Urine Urobilinogen Negative (Negative) Ur Leukocyte Esterase 3+ H (Negative) Urine WBC (Auto) >30 H (0-5) /hpf Urine RBC (Auto) 0-4 (0-4) /hpf U Hyaline Cast (Auto) 1-5 (0-5) /lpf U Epithel Cells (Auto) 5-10 H (0-5) /lpf Urine Bacteria (Auto) 2+ H (Negative) 01/14/19 01/14/19 01/14/19 Range/Units 11:38 11:33 11:33 WBC 14.81 H (4.8-10.8) K/uL RBC 3.88 L (4.2-5.4) M/uL Hgb 12.0 (12.0-16.0) g/dL POC Hgb 12.9 (12.0-16.0) g/dl Hct 36.8 L (37-47) % POC Hct 38 (37-47) % MCV 94.8 (80-100) fL MCH 30.9 (25-34) pg MCHC 32.6 (32-36) g/dL RDW Std Deviation 52.4 H (36.4-46.3) fL RDW Coeff of Mandi 15.3 H (11.5-14.5) % Plt Count 683 H (130-400) K/uL MPV 10.5 H (7.4-10.4) fL Immature Gran % (Auto) 0.9 % Neut % (Auto) 67.2 % Lymph % (Auto) 16.0 % [place] % (Auto) 12.4 % Eos % (Auto) 3.3 % Baso % (Auto) 0.2 % Immature Gran # (Auto) 0.14 H (0.00-0.02) K/uL Neut # (Auto) 9.95 H (1.4-6.5) K/uL Lymph # (Auto) 2.37 (1.2-3.4) K/uL [place] # (Auto) 1.83 H (0.11-0.59) K/uL Eos # (Auto) 0.49 (0-0.5) K/uL Baso # (Auto) 0.03 (0-0.2) K/uL PT (9.0-12.0) Seconds INR (0.9-1.1) APTT (21.0-31.0) Seconds PTT Ratio POC Sodium 136 (135-144) mEq/L Sodium 138 (136-145) mmol/L POC Potassium 4.0 (3.3-5.0) mEq/L Potassium 4.0 (3.5-5.1) mmol/L POC Chloride 95 L (101-112) mEq/L Chloride 99 (98-107) mmol/L Carbon Dioxide 33 H (21-32) mmol/L POC Total CO2 30 (24-31) mEq/l Anion Gap 6.0 (3-11) POC Anion Gap 16.0 (16-25) mmol/L POC BUN 18 (7-18) mg/dl BUN 19 H (7-18) mg/dl Creatinine 1.04 (0.6-1.2) mg/dl POC Creatinine 1.2 (0.6-1.3) mg/dl Est Cr Clr Drug Dosing 37.5 ml/min Est GFR ( Amer) 55.6 Est GFR (Non-Af Amer) 47.9 BUN/Creatinine Ratio 18.2 (10-20) Glucose 94 (70-99) mg/dl POC Glucose (other) 97 (70-99) mg/dl Calcium 8.7 (8.5-10.1) mg/dl POC Ioniz Calcium Carey 1.12 (1.12-1.32) mmol/l Phosphorus (2.5-4.9) mg/dl Magnesium (1.8-2.4) mg/dl Total Bilirubin 0.4 (0.2-1) mg/dl AST 12 L (15-37) U/L ALT 17 (12-78) U/L Alkaline Phosphatase 82 (45-117) U/L Troponin I < 0.015 (0-0.045) ng/ml Total Protein 6.0 L (6.4-8.2) gm/dl Albumin 3.2 L (3.4-5.0) gm/dl Globulin 2.8 (2.5-4.0) gm/dl Albumin/Globulin Ratio 1.1 (0.9-2) Lipase 57 L (73-393) U/L Urine Color Urine Appearance (Clear) Urine pH (4.5-7.5) Ur Specific [place] (1.000-1.030) Urine Protein (Negative) Urine Glucose (UA) (Negative) Urine Ketones (Negative) Urine Blood (Negative) Urine Nitrite (Negative) Urine Bilirubin (Negative) Urine Urobilinogen (Negative) Ur Leukocyte Esterase (Negative) Urine WBC (Auto) (0-5) /hpf Urine RBC (Auto) (0-4) /hpf U Hyaline Cast (Auto) (0-5) /lpf U Epithel Cells (Auto) (0-5) /lpf Urine Bacteria (Auto) (Negative) 01/14/19 Range/Units 11:33 WBC (4.8-10.8) K/uL RBC (4.2-5.4) M/uL Hgb (12.0-16.0) g/dL POC Hgb (12.0-16.0) g/dl Hct (37-47) % POC Hct (37-47) % MCV (80-100) fL MCH (25-34) pg MCHC (32-36) g/dL RDW Std Deviation (36.4-46.3) fL RDW Coeff of Mandi (11.5-14.5) % Plt Count (130-400) K/uL MPV (7.4-10.4) fL Immature Gran % (Auto) % Neut % (Auto) % Lymph % (Auto) % [place] % (Auto) % Eos % (Auto) % Baso % (Auto) % Immature Gran # (Auto) (0.00-0.02) K/uL Neut # (Auto) (1.4-6.5) K/uL Lymph # (Auto) (1.2-3.4) K/uL [place] # (Auto) (0.11-0.59) K/uL Eos # (Auto) (0-0.5) K/uL Baso # (Auto) (0-0.2) K/uL PT 10.7 (9.0-12.0) Seconds INR 1.0 (0.9-1.1) APTT 27.1 (21.0-31.0) Seconds PTT Ratio 1.0 POC Sodium (135-144) mEq/L Sodium (136-145) mmol/L POC Potassium (3.3-5.0) mEq/L Potassium (3.5-5.1) mmol/L POC Chloride (101-112) mEq/L Chloride (98-107) mmol/L Carbon Dioxide (21-32) mmol/L POC Total CO2 (24-31) mEq/l Anion Gap (3-11) POC Anion Gap (16-25) mmol/L POC BUN (7-18) mg/dl BUN (7-18) mg/dl Creatinine (0.6-1.2) mg/dl POC Creatinine (0.6-1.3) mg/dl Est Cr Clr Drug Dosing ml/min Est GFR ( Amer) Est GFR (Non-Af Amer) BUN/Creatinine Ratio (10-20) Glucose (70-99) mg/dl POC Glucose (other) (70-99) mg/dl Calcium (8.5-10.1) mg/dl POC Ioniz Calcium Carey (1.12-1.32) mmol/l Phosphorus (2.5-4.9) mg/dl Magnesium (1.8-2.4) mg/dl Total Bilirubin (0.2-1) mg/dl AST (15-37) U/L ALT (12-78) U/L Alkaline Phosphatase (45-117) U/L Troponin I (0-0.045) ng/ml Total Protein (6.4-8.2) gm/dl Albumin (3.4-5.0) gm/dl Globulin (2.5-4.0) gm/dl Albumin/Globulin Ratio (0.9-2) Lipase (73-393) U/L Urine Color Urine Appearance (Clear) Urine pH (4.5-7.5) Ur Specific [place] (1.000-1.030) Urine Protein (Negative) Urine Glucose (UA) (Negative) Urine Ketones (Negative) Urine Blood (Negative) Urine Nitrite (Negative) Urine Bilirubin (Negative) Urine Urobilinogen (Negative) Ur Leukocyte Esterase (Negative) Urine WBC (Auto) (0-5) /hpf Urine RBC (Auto) (0-4) /hpf U Hyaline Cast (Auto) (0-5) /lpf U Epithel Cells (Auto) (0-5) /lpf Urine Bacteria (Auto) (Negative)
--- NOTE | 2019-01-15 10:55 | Anesthesiology Consultation ---
Date of Service January 15, 2019 Assessment & Plan (1) Encounter for pre-operative examination: Chart Review Chart Review: Acceptable Risk for Surgery and Patient NOT seen in Pre Admission Testing Consults Requested none History Surgery Operation Date: 01/15/19 10:00 Proposed Procedures p Esophagogastroduodenoscopy Dr Henry Figueroa Height/Weight Height: 5 ft 3 in Weight: 78.6 kg Allergies Allergy/AdvReac Type Severity Reaction Status Date / Time clindamycin Allergy Severe SHORTNESS Verified 01/14/19 12:06 OF BREATH Cephalosporins Allergy Intermediate RASH-UPSET Verified 01/14/19 12:06 STOMACH Penicillins Allergy Intermediate RASH-UPSET Verified 01/14/19 12:06 STOMACH sulfamethoxazole AdvReac Intermediate Vomiting Verified 01/14/19 12:06 [From Bactrim] trimethoprim [From Bactrim] AdvReac Intermediate Vomiting Verified 01/14/19 12:06 aspirin AdvReac Mild burning is Verified 01/14/19 12:06 stomach Medications Home Medications Medication Instructions Recorded Confirmed Last Taken PreserVision AREDS 1 tab PO QAM 07/19/18 01/14/19 01/14/19 08:30 Travatan Z 1 drp OPB HS 07/19/18 01/14/19 01/13/19 21:00 aspirin 81 mg PO QAM 07/19/18 01/14/19 01/14/19 08:30 cholecalciferol (vitamin D3) 1,000 1,000 unit PO DAILY@1700 cap 11/22/18 01/14/19 01/13/19 17:00 unit capsule famotidine 20 mg tablet 20 mg PO Q12 PRN #60 tab 11/22/18 01/14/19 Unknown hydrochlorothiazide 25 mg tablet 25 mg PO QAM #30 tab 11/22/18 01/14/19 01/14/19 08:30 lorazepam 0.5 mg tablet 0.5 mg PO DAILY PRN #30 tab 11/22/18 01/14/19 Unknown carvedilol [Coreg] 3.125 mg PO BIDM 01/14/19 01/14/19 01/14/19 08:30 escitalopram oxalate 10 mg PO QAM 01/14/19 01/14/19 01/14/19 08:30 fluticasone furoate-vilanterol 1 puffs INH QAM 01/14/19 01/14/19 01/14/19 08:30 [Breo Ellipta] furosemide 20 mg PO MOWEFR 01/14/19 01/14/19 01/13/19 losartan 25 mg PO HS 01/14/19 01/14/19 01/13/19 21:00 nystatin 1 applic TOPICAL BID 01/14/19 01/14/19 01/14/19 07:00 Active Medications Generic Name Dose Route Start Last Admin Trade Name Freq PRN Reason Stop Dose Admin Carvedilol 3.125 mg 01/14/19 17:00 01/15/19 08:44 Coreg PO 02/13/19 16:59 3.125 mg BIDM RAI Administration Escitalopram Oxalate 10 mg 01/15/19 09:00 01/15/19 08:44 Lexapro Tab PO 02/14/19 08:59 10 mg QAM RAI Administration Hydrochlorothiazide 25 mg 01/15/19 09:00 01/15/19 08:44 Hctz PO 02/14/19 08:59 25 mg QAM RAI Administration Pantoprazole Sodium 40 mg/ 10 mls @ 5 mls/min 01/14/19 21:00 01/15/19 09:22 Syringe IV 02/13/19 20:59 5 mls/min BID@0900,2100 RAI Administration Potassium Chloride/Dextrose/Sod Cl 20 meq in 1,000 mls @ 80 mls/hr 01/14/19 16:36 01/15/19 10:53 D5nss + 20meq Kcl IV 02/13/19 16:35 0 mls/hr .[id number] RAI Infusion Furosemide 10 mg/ Syringe 1 mls @ 4 mls/min 01/15/19 09:00 01/15/19 08:44 IV 02/14/19 08:59 4 mls/min DAILY RAI Administration Ioversol 94 ml 01/14/19 12:26 01/14/19 12:26 Optiray 320 100ml IV 01/18/19 12:25 94 ml ONCE PRN Administration Interaction Checking Losartan Potassium 25 mg 01/14/19 21:00 01/14/19 20:51 Cozaar PO 02/13/19 20:59 25 mg HS RAI Administration Miscellaneous 1 ea 01/15/19 00:00 01/15/19 08:43 Order Awaiting Action N/A 02/14/19 00:00 Not Given QS RAI Multivitamins/Minerals 1 tab 01/15/19 09:00 01/15/19 08:44 Multivitamin W/ Minerals Tab PO 02/14/19 08:59 1 tab QAM RAI Administration Nystatin 1 appln 01/14/19 21:00 01/15/19 08:44 Mycostatin EXT 02/13/19 20:59 1 appln BID RAI Administration Past Medical History Medical History Urine incontinence (Acute) Anxiety (Acute) Hearing loss (Chronic) Aphasia (Acute 04/01/13) Dysphagia (Acute 04/01/13) Hypertension (Acute 04/01/13) Right inguinal hernia (Acute) TIA (transient ischemic attack) (Acute) ASCVD (arteriosclerotic cardiovascular disease) CAD (coronary artery disease) Dementia GERD (gastroesophageal reflux disease) Past Family History Family History Mother Breast cancer Other No pertinent family history Past Surgical History Surgical History No pertinent past surgical history Social History Smoking Status: Never smoker Hx Alcohol Use: No Hx Substance Use: No substance use type: does not use Physical Exam Vital Signs Last Vital Signs Temp 36.9 C 01/15/19 07:50 Pulse 82 01/15/19 07:50 Resp 18 01/15/19 07:50 BP 158/82 H 01/15/19 07:50 Pulse Ox 94 01/15/19 04:00 Testing Laboratory Results 01/15/19 06:32 01/15/19 06:32 PT 10.7 Seconds (9.0-12.0) 01/14/19 11:33 INR 1.0 (0.9-1.1) 01/14/19 11:33 APTT 27.1 Seconds (21.0-31.0) 01/14/19 11:33 Urine Color Yellow 01/14/19 13:06 Urine Appearance Clear (Clear) 01/14/19 13:06 Urine pH 8.0 (4.5-7.5) H 01/14/19 13:06 Ur Specific [place] 1.018 (1.000-1.030) 01/14/19 13:06 Urine Protein Negative (Negative) 01/14/19 13:06 Urine Glucose (UA) Negative (Negative) 01/14/19 13:06 Urine Ketones Negative (Negative) 01/14/19 13:06 Urine Nitrite Negative (Negative) 01/14/19 13:06 Ur Leukocyte Esterase 3+ (Negative) H 01/14/19 13:06 Urine WBC (Auto) >30 /hpf (0-5) H 01/14/19 13:06 Urine RBC (Auto) 0-4 /hpf (0-4) 01/14/19 13:06 U Hyaline Cast (Auto) 1-5 /lpf (0-5) 01/14/19 13:06 U Epithel Cells (Auto) 5-10 /lpf (0-5) H 01/14/19 13:06 Urine Bacteria (Auto) 2+ (Negative) H 01/14/19 13:06 01/14/19 13:06 Urine Culture - Preliminary Urine,Clean Catch Gram negative bacilli
--- NOTE | 2019-01-15 11:22 | Hospitalist Progress Note ---
Date of Service January 15, 2019 Assessment & Plan (1) Coffee ground vomiting: Hb 12.0 on admission, but heme + in the ED Decreased to 10.6; Awaiting upper endoscopy. Monitor with NPO, IVF, protonix BID pu Bleeding possibly related to irritation in the setting of ongoing emesis with aspirin use Holding aspirin (2) Anxiety: continue home meds (3) Hypertension: continue home meds (4) TIA (transient ischemic attack): Aspirin 81mg, hold (5) GERD (gastroesophageal reflux disease): giving protonix drip (6) DVT prophylaxis: SCDs given above Spent 35 minutes in management of case Subjective Patient has baseline dementia. Patient does not provide any new complaints. Patient's family is at bedside. All questions are answered. Review of Systems Review of Systems: All systems reviewed & are unremarkable except as noted in HPI & below Physical Exam Physical Exam: Constitutional: WD/WN, vitals as above Eyes: normal visual lozano by confrontation and + anicteric sclerae Neck: normal visual inspection and trachea midline Respiratory: normal respiratory effort, lungs clear to auscultation Cardiovascular: Rate/Rhythm: regular rate and regular rhythm Gastrointestinal (Abdomen): Inspection/Auscultation: + abdomen distended Percussion/Palpation: abdomen soft; abdomen nontender Musculoskeletal: Head/Neck/Chest: normocephalic and head atraumatic negative for edema, peripheral pulses intact Skin: no rashes, warm and dry Neurologic: awake; not confused Speech / Cognition: normal speech Psychiatric: Orientation: oriented to person and cooperative; + not oriented to place and + not oriented to time Affect: euthymic affect Results & Data Vital Signs (Past 12 Hours) Vital Signs Temp Pulse Pulse Resp BP Pulse Ox 01/15/19 07:50 36.9 C 82 18 158/82 H 01/15/19 07:43 77 01/15/19 04:00 36.8 C 75 20 130/72 94 01/14/19 23:30 78 PG Care Time/CCT Total # of Minutes Spent Total Time Spent with Patient: Total time spent is greater than 50% in coordination of care (as documented) at patient's floor/unit and/or counseling patient:
[2019-01-15] MEDS ORDERED: PROPOFOL IV EMULSION 10 MG/ML 20 ML VIAL IV ONE (11:26)
[2019-01-15] MEDS ORDERED: LIDOCAINE HCL 2% 2 ML VIAL/AMP(20MG/ML) INFIL ONE (11:26)
--- NOTE | 2019-01-15 11:47 | GI REPORT ---
Patient Name: Nina Addison Procedure Date: 01/15/2019 11:24 AM Date of : 1930 Admit Type: Inpatient Age: 88 Gender: Female Attending MD: Italo Figueroa DO Procedure: Upper GI endoscopy Providers: Italo Figueroa DO Referring MD: Mejia Beckwith M.d. Indications: Coffee-ground emesis Medicines: Monitored Anesthesia Care Complications: No immediate complications. Estimated blood loss: Minimal. Estimated Blood Loss: Estimated blood loss was minimal. Procedure: Pre-Anesthesia Assessment: - Prior to the procedure, a History and Physical was performed, and patient medications, allergies and sensitivities were reviewed. The patient's tolerance of previous anesthesia was reviewed. - The risks and benefits of the procedure and the sedation options and risks were discussed with the patient. All questions were answered and informed consent was obtained. - Patient identification and proposed procedure were verified prior to the procedure by the physician, the nurse and the service secretary. The procedure was verified in the procedure room. - Pre-procedure physical examination revealed no contraindications to sedation. - ASA Grade Assessment: IV - A patient with severe systemic disease that is a constant threat to life. - After reviewing the risks and benefits, the patient was deemed in satisfactory condition to undergo the procedure. - The anesthesia plan was to use monitored anesthesia care (MAC). - Immediately prior to administration of medications, the patient was re-assessed for adequacy to receive sedatives. - The heart rate, respiratory rate, oxygen saturations, blood pressure, adequacy of pulmonary ventilation, and response to care were monitored throughout the procedure. - The physical status of the patient was re-assessed after the procedure. After obtaining informed consent, the endoscope was passed under direct vision. Throughout the procedure, the patient's blood pressure, pulse, and oxygen saturations were monitored continuously. The Endoscope was introduced through the mouth, and advanced to the third part of duodenum. The upper GI endoscopy was accomplished without difficulty. The patient tolerated the procedure well. Findings: The upper third of the esophagus was normal. LA Grade C (one or more mucosal breaks continuous between tops of 2 or more mucosal folds, less than 75% circumference) esophagitis with no bleeding was found 25 to 36 cm from the incisors. A medium-sized hiatal hernia was found. The proximal extent of the gastric folds (end of tubular esophagus) was 36 cm from the incisors. The hiatal narrowing was 39 cm from the incisors. Diffuse moderate inflammation characterized by congestion (edema), erythema and granularity was found in the entire examined stomach. Biopsies were taken with a cold forceps for histology. Estimated blood loss was minimal. The examined duodenum was normal. Impression: - Normal upper third of esophagus. - LA Grade C reflux esophagitis. - Medium-sized hiatal hernia. - Gastritis. Biopsied. - Normal duodenum. Recommendation: - [facility]. - Advance diet as tolerated. - Use Protonix (pantoprazole) 40 mg PO daily. - Use sucralfate suspension 1 gram PO BID for 4 weeks. - Repeat EGD in 3 months. Italo Figueroa D.O. Italo Figueroa, 01/15/2019 11:46:38 AM This report has been signed electronically. Note Initiated On: 01/15/2019 11:24 AM Number of Addenda: 0 I attest to the content of the Intraoperative Record and orders documented therein, exceptions below {[id number]}
[2019-01-15] MEDS: LOSARTAN POTASSIUM 25 MG TAB PO SCH (20:59)
[2019-01-15] MEDS: TRAVOPROST Z 0.004% OPH SOLN 2.5 ML BTL OPB SCH (21:01)
[2019-01-16 08:27] LABS: Hematocrit (blood only) 34.4 % (37-47); Hemoglobin 10.9 g/dL (12.0-16.0)
[2019-01-16] MEDS: D5NSS + 20MEQ KCL 20 MEQ/1,000 ML BAG IV SCH (09:21)
[2019-01-16] MEDS: hydroCHLOROthiazide 25 MG TAB PO SCH (09:25)
[2019-01-16] MEDS: CARVEDILOL 3.125 MG TAB PO SCH ×2 (09:26→17:12)
[2019-01-16] MEDS: CEROVITE ADV FORMULA TAB PO SCH (09:26)
[2019-01-16] MEDS: ESCITALOPRAM OXALATE 10 MG TAB PO SCH (09:26)
[2019-01-16] MEDS: FUROSEMIDE 10 MG in SYRINGE 0 ML IV SCH (10:09)
[2019-01-16] MEDS: PANTOprazole 40 MG in SYRINGE 0 ML IV SCH (10:09)
[2019-01-16] MEDS: NYSTATIN POWDER 15GM BTL EXT SCH (15:02)
[2019-01-16 16:09] VITALS: BP 173/59; PULSE 66; TEMP 98.2; O2SAT 94
--- NOTE | 2019-01-16 16:53 | Anesthesiology Progress Note ---
Date of Service January 16, 2019 Anesthesia Post Procedure Vital Signs Vital Signs: Temp Pulse Pulse Pulse Resp BP BP 01/16/19 16:08 36.8 C 66 18 173/59 H 01/16/19 15:36 01/16/19 15:13 36.5 C 75 74 18 133/76 155/72 H 01/16/19 15:05 36.5 C 75 74 18 133/76 155/72 H 01/16/19 14:24 72 01/16/19 07:08 36.5 C 74 18 155/72 H 01/16/19 07:00 64 01/16/19 04:28 36.8 C 72 18 150/93 H 01/16/19 00:00 70 01/15/19 23:24 36.8 C 70 18 133/76 01/15/19 20:57 74 157/82 H 01/15/19 18:53 36.6 C 75 20 173/81 H 183/81 H Pulse Ox Pulse Ox 01/16/19 16:08 94 01/16/19 15:36 93 01/16/19 15:13 94 01/16/19 15:05 94 01/16/19 14:24 01/16/19 07:08 94 01/16/19 07:00 01/16/19 04:28 92 01/16/19 00:00 01/15/19 23:24 91 01/15/19 20:57 01/15/19 18:53 90 Transfer of Care Handoff Completed per policy Notes Mental Status: alert / awake / arousable and participated in evaluation Patient Amnestic to Procedure: Yes Nausea / Vomiting: adequately controlled Pain: adequately controlled Airway Patency, RR, SpO2: stable & adequate BP & HR: stable & adequate Hydration State: stable & adequate Anesthetic Complications: no major complications apparent and Pt Satisfied with anesthetic care
--- NOTE | 2019-01-24 21:09 | Discharge Summary ---
Date of Service January 16, 2019 Admission HPI Per Admitting Provider 88 y/o F who was sent to the ED from her H for coffee ground emesis. Pt is unable to provide any details due to dementia. She states that she feels fine at present. Pt denies fever, SOB, chest pain, abd pain, n/v/c/d, LE pain or swelling. Family states that she has been having intermittent emesis over the last month or so. It was not daily and there was nothing specific noted to be causing it. She would have mild abd pain with this, but was otherwise tolerating PO. Over the last week she apparently started having emesis daily, family is uncertain how many times a day. They were called this AM because pt was reported to have had coffee ground emesis yesterday. She had emesis this AM immediately after eating, so it was unclear it there was coffee ground appearance or not. No hx of similar issues. She was apparently SOB to the bathroom today. Pt has dementia at baseline and they feel she is at her usual. Principal Diagnosis coffee ground emesis secondary to serve esophagitis Discharge Exam Constitutional: WD/WN, vitals as above Eyes: normal visual lozano by confrontation and + anicteric sclerae Neck: normal visual inspection and trachea midline Respiratory: normal respiratory effort, lungs clear to auscultation Cardiovascular: Rate/Rhythm: regular rate and regular rhythm Gastrointestinal (Abdomen): Inspection/Auscultation: + abdomen distended Percussion/Palpation: abdomen soft; abdomen nontender Musculoskeletal: Head/Neck/Chest: normocephalic and head atraumatic negative for edema, peripheral pulses intact Skin: no rashes, warm and dry Neurologic: awake; not confused Speech / Cognition: normal speech Psychiatric: Orientation: oriented to person and cooperative; + not oriented to place and + not oriented to time Affect: euthymic affect Discharge Data Allergies Allergy/AdvReac Type Severity Reaction Status Date / Time clindamycin Allergy Severe SHORTNESS Verified 01/15/19 11:26 OF BREATH Cephalosporins Allergy Intermediate RASH-UPSET Verified 01/15/19 11:26 STOMACH Penicillins Allergy Intermediate RASH-UPSET Verified 01/15/19 11:26 STOMACH sulfamethoxazole AdvReac Intermediate Vomiting Verified 01/15/19 11:26 [From Bactrim] trimethoprim [From Bactrim] AdvReac Intermediate Vomiting Verified 01/15/19 11:26 aspirin AdvReac Mild burning is Verified 01/15/19 11:26 stomach Consultations 01/14/19 13:16 ED Decision to Admit Stat 01/14/19 16:36 Consult Case Management - Discharge Planning Routine Consult Gastroenterology Routine Procedures Performed Operation Date: 01/15/19 10:00 Actual Procedures p EGD Biopsy Cytology(Not Applicable) - Italo Figueroa Ordered Studies 01/14/19 11:17 CT abd pelvis IV con only Stat Hospital Course (1) Coffee ground vomiting: Hb 12.0 on admission, but heme + in the ED Decreased to 10.6; Upper endoscopy completed Holding aspirin during hospital stay; however will resume aspirin in AM day after discharge due to history of TIA. Impression: - Normal upper third of esophagus. - LA Grade C reflux esophagitis. - Medium-sized hiatal hernia. - Gastritis. Biopsied. - Normal duodenum. Recommendation: - [facility]. - Advance diet as tolerated. - Use Protonix (pantoprazole) 40 mg PO daily. - Use sucralfate suspension 1 gram PO BID for 4 weeks. - Repeat EGD in 3 months. Please refer to records for EGD report. will continue carafate and protonix (2) Anxiety: continue home meds (3) Hypertension: continue home meds (4) TIA (transient ischemic attack): Aspirin 81mg, hold (5) GERD (gastroesophageal reflux disease): giving protonix drip (6) DVT prophylaxis: SCDs given above Total Time Total Time Spent Total Time Spent (In Minutes): 32 Total Time Includes: Examination of the Patient, Discharge Planning and Medication Reconciliation Discharge Plan Discharge Items Patient Disposition: Personal Skilled Nursing Reason For Visit: COFFEE GROUND EMESIS Discharge Diagnosis: Esophagitis Discharge Goals: Decrease discomfort and Diagnostic testing Activity: Resume your previous activity Non-emergency contact: Primary Care Provider Call non-emergency contact if: you have any medication questions Follow-up/Referrals: Beau Thompson MD [Primary Care Provider] - Diet: Regular Addtl Provider Instructions: - [facility]. - Use Protonix (pantoprazole) 40 mg PO daily. - Use sucralfate suspension 1 gram PO BID for 4 weeks. - Repeat EGD in 3 months. Prescriptions: New pantoprazole 20 mg tablet,delayed release (DR/EC) 40 mg PO DAILY 28 Days Qty: 56 RF: 0 sucralfate [Carafate] 100 mg/mL suspension 1 gm PO BID 28 Days Qty: 560 RF: 0 Continued cholecalciferol (vitamin D3) [Vitamin D3] 1,000 unit capsule 1,000 unit PO DAILY@1700 RF: 0 famotidine 20 mg tablet 20 mg PO Q12 PRN (Reason: heartburn) Qty: 60 RF: 0 hydrochlorothiazide 25 mg tablet 25 mg PO QAM Qty: 30 RF: 5 lorazepam 0.5 mg tablet 0.5 mg PO DAILY PRN (Reason: Anxiety) Qty: 30 RF: 5 nystatin 100,000 unit/gram powder 1 applic topical BID RF: 0 losartan 50 mg tablet 25 mg PO HS RF: 0 carvedilol [Coreg] 3.125 mg tablet 3.125 mg PO BIDM RF: 0 furosemide 20 mg tablet 20 mg PO MOWEFR RF: 0 escitalopram oxalate 10 mg tablet 10 mg PO QAM RF: 0 Breo Ellipta 100-25 mcg/dose blister with device 1 puffs INH QAM RF: 0 aspirin 81 mg Tablet,Delayed Release (Dr/Ec) 81 mg PO QAM RF: 0 PreserVision AREDS [id number] Tablet 1 tab PO QAM RF: 0 Travatan Z 0.004 % Drops 1 drp OPB HS RF: 0 No Action sucralfate [Carafate] 1 gram tablet 1 gm PO .COMPLEX Qty: 56 RF: 0 Stand-Alone Forms: [facility] Discharge Orders: Discharge Order (Routine); Ordered 01/16/19 Ordered By: Mejia Beckwith Admission Data Admit Date/Time: 01/14/19 14:00 Attending Provider: Mejia Beckwith Admit Provider: Gi Abreu Primary Care Provider: Beau Thompson Other Providers: Gi Abreu ; Zach Brody Service: Telemetry Medical Other Interventions: Discharge Summary Assessment (RN) Last Done: 01/16/19 15:13 DC Date/Time DO NOT enter until pt leaves facility: 01/16/19 15:45
== END 2019-01-16 15:45 | disposition home or self-care (01) | DRG 392 ==
LOC: ED 10:57 → 2N 14:00 → SUATTDRO 14:00 → 2N 15:41

== ENCOUNTER 2019-05-24 14:53 | Inpatient (IN) ==
[2019-05-24] MEDS ORDERED: FUROSEMIDE 40 MG/4 ML VIAL IV STA ×2 (15:27→18:32)
[2019-05-24 15:41] LABS: Appearance Urine Cloudy (Clear); Bacteria Urine Automated Negative (Negative); Bilirubin Urine Negative (Negative); Blood Urine Negative (Negative); Color Urine Yellow; Epithelial Cell Urine Auto >30 /lpf (0-5); Glucose Urine UA Negative (Negative); Ketones Urine Negative (Negative); Leukocyte Esterase Urine Negative (Negative); Nitrite Urine Negative (Negative); Protein Urine Negative (Negative); RBC Urine Automated 0-4 /hpf (0-4); Urobilinogen Urine Negative (Negative); pH Urine 6.5 (4.5-7.5)
--- NOTE | 2019-05-24 15:43 | XRay Report ---
XR chest 1V portable CLINICAL HISTORY: Dyspnea dyspnea COMPARISON STUDY: 01/14/2019 FINDINGS: The bones soft tissues and hemidiaphragms are normal. The cardiomediastinal silhouette is n ormal. The lungs are clear. The pulmonary vasculature is normal. IMPRESSION: Negative chest. ACT 112: Negative or not required by law. The above report was generated using voice recognition software. It may contain grammatical, syntax or spelling errors. Electronically signed by: David Escamilla M.D. 05/24/2019 3:42 PM
--- NOTE | 2019-05-24 15:47 | Electrocardiogram Report ---
Test Reason : Blood Pressure : / mmHG Vent. Rate : 085 BPM Atrial Rate : 085 BPM P-R Int : 158 ms QRS Dur : 096 ms QT Int : 404 ms P-R-T Axes : 067 -32 097 degrees QTc Int : 480 ms Sinus rhythm with frequent Premature ventricular complexes Left axis deviation Minimal voltage criteria for LVH, may be normal variant Nonspecific ST and T wave abnormality Abnormal ECG When compared with ECG of 14-JAN-2019 11:56, Premature supraventricular complexes are no longer Present Confirmed by Fred Liriano ([id number]) on 05/24/2019 3:46:37 PM Referred By: Confirmed By:Fred Liriano
[2019-05-24 15:58] LABS: Basophils # (auto) 0.05 K/uL (0-0.2); Basophils % (auto) 0.3 %; Eosinophils # (auto) 0.45 K/uL (0-0.5); Eosinophils % (auto) 2.8 %; Hematocrit (blood only) 39.7 % (37-47); Hemoglobin 12.8 g/dL (12.0-16.0); Immature Granulocytes # (auto) 0.11 K/uL (0.00-0.02); Immature Granulocytes % (auto) 0.7 %; Lymphocytes # (auto) 1.87 K/uL (1.2-3.4); Lymphocytes % (auto) 11.7 %; Mean Corpuscular Hemoglobin 29.2 pg (25-34); Mean Corpuscular Hgb Conc 32.2 g/dL (32-36); Mean Corpuscular Volume 90.4 fL (80-100); Mean Platelet Volume 11.3 fL (7.4-10.4); Monocytes # (auto) 1.28 K/uL (0.11-0.59); Neutrophils # (auto) 12.27 K/uL (1.4-6.5); Neutrophils % (auto) 76.5 %; Platelet Count 630 K/uL (130-400); RDW Coefficient of Variation 16.2 % (11.5-14.5); RDW Standard Deviation 52.9 fL (36.4-46.3); Red Blood Count 4.39 M/uL (4.2-5.4); White Blood Count 16.03 K/uL (4.8-10.8)
[2019-05-24 16:09] LABS: Base Excess VBG 3.9 mEq/L; HCO3 VBG 30 mmol/L; Oxygen Saturation VBG < 60.0 %; PCO2 VBG 53 mmHg (38-50); PO2 VBG 32 mmHg; Partial Thromboplastin Ratio 1.1; Partial Thromboplastin Time 28.5 Seconds (21.0-31.0); Prothrombin Time 10.3 Seconds (9.0-12.0); pH VBG 7.38 (7.36-7.41)
[2019-05-24 16:18] LABS: Alanine Aminotransferase 28 U/L (12-78); Albumin Level 3.4 gm/dl (3.4-5.0); Aspartate Aminotransferase 18 U/L (15-37); BUN Creatinine Ratio 15.7 (10-20); Blood Urea Nitrogen 22 mg/dl (7-18); Calcium 8.8 mg/dl (8.5-10.1); Carbon Dioxide 31 mmol/L (21-32); Chloride 103 mmol/L (98-107); Creatinine Clr Calc Pharmacy 26.7 ml/min; Est GFR (African American) 39.2; Est GFR (Non-African American) 33.8; Glucose 124 mg/dl (70-99); Potassium 3.8 mmol/L (3.5-5.1); Sodium 137 mmol/L (136-145)
[2019-05-24 16:22] LABS: Alkaline Phosphatase 92 U/L (45-117); Bilirubin,Total 0.3 mg/dl (0.2-1); Globulin 3.4 gm/dl (2.5-4.0); Total Protein 6.8 gm/dl (6.4-8.2); Troponin I < 0.015 ng/ml (0-0.045)
[2019-05-24 16:36] LABS: Influenza A virus by PCR Neg for Influ A (Neg); Influenza B virus by PCR Neg for Influ B (Neg)
[2019-05-24] MEDS ORDERED: BENZONATATE 100 MG CAPSULE PO ONE (18:09)
--- NOTE | 2019-05-24 20:07 | History & Physical Report ---
Date of Service May 24, 2019 Assessment & Plan (1) CHF (congestive heart failure): Admit to PCU on telemetry. Strict in and out Daily weight TTE pending BNP pending Given furosemide 20 mg IV in the ER x2. Continue furosemide 20 mg IV twice daily. Replenish electrolytes as needed. DVT prophylaxis: Heparin 5000 units every 8 hours. Continue aspirin 81 mg p.o. every morning. Continue carvedilol 3.125 mg p.o. twice daily. Continue losartan 50 mg p.o. nightly. Hold hydrochlorothiazide 25 mg p.o. every morning. DNR/DNI Present on Admission?: Yes (2) Cough: Chest x-ray shows clear lungs. Possibly acute exacerbation of COPD/asthma. Duo nebs every 4 hours as needed. Robitussin 10 mg p.o. every 6 hours Supplemental oxygen to keep oxygenation above 92% as needed. Continue Breo Ellipta 1 inhalation daily. Present on Admission?: Yes (3) Bilateral edema of lower extremity: As discussed above. Present on Admission?: Yes (4) Fluid overload: As discussed above Present on Admission?: Yes (5) Acute respiratory failure: Continue monitoring. Supplemental oxygen. Procalcitonin negative, chest x-ray is negative for pneumonia. Less likely bacterial or viral infection. Continue supportive treatment Breo Ellipta 1 inhalation daily Present on Admission?: Yes (6) Leukocytosis: Elevated leukocytosis to 16,000. Not clear origin of leukocytosis. No source of infection visible at this point. Continue monitoring and trending down. Present on Admission?: Yes (7) Depression due to dementia: Continue Escitalopram 10 mg p.o. every morning, continue Lorazepam 0.5 mg p.o. daily as needed. Present on Admission?: Yes (8) GERD (gastroesophageal reflux disease): Continue pantoprazole 40 mg p.o. every morning, continue sucralfate 1 mg p.o. twice daily for gastritis. Present on Admission?: Yes History of Present Illness Chief Complaint: Shortness of breath Primary Care Provider: Giuseppe Tan Patient is a 89 years old female with past medical history of congestive heart failure, GERD, hypertension, depression due to dementia, osteoarthritis, who lives in a personal assisted at [place] and was brought by EMS to the emergency room with a complaint of respiratory failure with oxygenation with of 82% on room air and wheezing and coughing. Patient is poor historian and has severe dementia of Alzheimer type. Her 2 sisters are next to her bedside and they explained that this is patient's baseline. White blood cell count is 16.03, hemoglobin 12.8, hematocrit 39.7, platelets of 630, sodium 137, potassium 3.8, chloride 103, BUN 22, creatinine 1.38, glucose 124, calcium 8.8, AST 18, ALT 28, troponin 0 0.015, GFR 33.8, procalcitonin 0.05 -negative. Urine is negative but cloudy, negative for influenza A&B. Chest x-ray shows pulmonary vasculature is normal. Lungs are clear. Negative chest. Decision was made to admit patient to PCU on telemetry for respiratory failure and volume overload. Patient does not use oxygen and personal home care. Allergies Allergy/AdvReac Type Severity Reaction Status Date / Time clindamycin Allergy Severe SHORTNESS Verified 05/24/19 17:08 OF BREATH Cephalosporins Allergy Intermediate RASH-UPSET Verified 05/24/19 17:09 STOMACH Penicillins Allergy Intermediate RASH-UPSET Verified 05/24/19 17:09 STOMACH sulfamethoxazole AdvReac Intermediate Vomiting Verified 05/24/19 17:09 [From Bactrim] trimethoprim [From Bactrim] AdvReac Intermediate Vomiting Verified 05/24/19 17:09 aspirin AdvReac Mild burning is Verified 05/24/19 17:09 stomach Home Medications Home Medications Medication Instructions Recorded Confirmed Type PreserVision AREDS 1 tab PO QAM 07/19/18 05/24/19 History Travatan Z 1 drp OPB HS 07/19/18 05/24/19 History aspirin 81 mg PO QAM 07/19/18 05/24/19 History hydrochlorothiazide 25 mg tablet 25 mg PO QAM #30 tab 11/22/18 05/24/19 Rx carvedilol [Coreg] 3.125 mg PO BIDM 01/14/19 05/24/19 History lorazepam 0.5 mg tablet 0.5 mg PO DAILY PRN #30 tab 01/27/19 05/24/19 Rx losartan 50 mg tablet 25 mg PO HS #15 tab 02/10/19 05/24/19 Rx cholecalciferol (vitamin D3) 25 1,000 unit PO DAILY@1700 #90 cap 02/22/19 05/24/19 Rx mcg (1,000 unit) capsule furosemide 20 mg tablet 20 mg PO 3XWK tab 03/10/19 05/24/19 History escitalopram oxalate 10 mg PO QAM 03/25/19 05/24/19 History pantoprazole 40 mg PO QAM 03/25/19 05/24/19 History sucralfate 1 g PO BID 03/25/19 05/24/19 History famotidine 20 mg tablet 20 mg PO BID #60 tab 05/20/19 05/24/19 Rx Breo Ellipta 1 inh INHALATION DAILY 05/24/19 05/24/19 History benzonatate [Tessalon Perles] 100 mg PO TID PRN 5 Days #15 cap 05/24/19 Rx benzonatate [Tessalon Perles] 100 mg PO TID PRN 5 Days #15 cap 05/24/19 Rx nystatin 1 applic TOPICAL UD 05/24/19 05/24/19 History Past Med/Surg History Medical History Acute upper GI bleed (Acute) Anxiety (Acute) Aphasia (Acute 04/01/13) ASCVD (arteriosclerotic cardiovascular disease) Atrial premature complexes Burning with urination (Acute) CAD (coronary artery disease) CKD (chronic kidney disease) Coffee ground vomiting (Acute) Delirium Dementia DVT prophylaxis DVT prophylaxis Esophagitis (Acute) GERD (gastroesophageal reflux disease) GERD (gastroesophageal reflux disease) Glaucoma Hearing loss (Chronic) Hyperlipemia Hypertension (Acute 04/01/13) Leukocytosis Osteoarthritis Right inguinal hernia (Acute) SOB (shortness of breath) (Acute) TIA (transient ischemic attack) (Acute) Surgical History History of tonsillectomy and adenoidectomy Family History Mother Breast cancer Myocardial infarction Father Myocardial infarction Social History Preferred Language: Greenlandic Communication Ability: Effective Hearing Ability: Use of Hearing Aid S3B Multi Sensor Operator Required: No Beliefs That Will Affect Care: None marital status: / Current Living Situation: [facility] Current Living Situation Comment: [facility] current occupational status: retired Other Information That Helps Us Care for You: No Feels Safe at Home: Yes Safety Concerns: Feels Safe At This Time Smoking Status: Never smoker Second Hand Exposure: No ; Hx Alcohol Use: No Hx Substance Use: No Review of Systems Review of Systems: All systems reviewed & are unremarkable except as noted in HPI & below Physical Exam Constitutional: WD/WN, vitals as above well developed and + morbidly obese Eyes: PERRL, conjunctivae normal, anicteric sclerae ENMT: external ear and nose normal, oropharynx normal Neck: trachea midline, no thyromegaly Respiratory: + respiratory distress and + labored breathing Auscultation: + wheezes Cardiovascular: Heart Sounds: normal S1, normal S2 and + murmur Gastrointestinal (Abdomen): normal bowel sounds, soft, nontender, no hepatosplenomegaly Musculoskeletal: no cyanosis or clubbing, extremities motor strength 5/5 Skin: no rashes, warm and dry Neurologic: patellar DTR's 2+ bilat, sensation intact Psychiatric: Poor historian, severe dementia Alzheimer type. Lymphatic: no cervical or axillary lymphadenopathy Results & Data Vital Signs (Past 12 Hours) Vital Signs Temp Pulse Pulse Resp BP BP Pulse Ox 05/24/19 19:28 79 23 105/79 93 05/24/19 19:00 87 20 157/84 H 93 05/24/19 17:30 89 23 150/88 H 88 L 05/24/19 17:00 82 81 19 164/78 H 164/78 H 90 05/24/19 16:31 90 20 168/70 H 05/24/19 16:00 81 24 172/96 H 05/24/19 15:35 95 05/24/19 15:30 84 23 166/77 H 96 05/24/19 15:25 86 24 160/88 H 95 05/24/19 15:24 96 05/24/19 15:18 36.9 C 85 24 224/136 H 88 L 05/24/19 14:58 105 H 20 224/136 H Code Status & VTE Plan Code Status DO NOT RESUSCITATE, DO NOT INTUBATE VTE Prophylaxis Plan VTE Prophylaxis will be ordered: Yes PG Care Time/CCT Total # of Minutes Spent Total Time Spent with Patient: Total time spent is greater than 50% in coordination of care (as documented) at patient's floor/unit and/or counseling patient: (1) CHF (congestive heart failure) Heart failure chronicity: acute Heart failure type: unspecified Qualified Code(s): I50.9 - Heart failure, unspecified (2) Fluid overload Hypervolemia type: unspecified Qualified Code(s): E87.70 - Fluid overload, unspecified
[2019-05-24] MEDS ORDERED: ALUMINUM/MAGNESIUM SUSP 30 ML UDC PO PRN (21:19)
[2019-05-24] MEDS ORDERED: FUROSEMIDE 40 MG/4 ML VIAL IV SCH (21:19)
[2019-05-24] MEDS ORDERED: MAGNESIUM HYDROXIDE SUSP 30 ML UDC PO PRN (21:19)
[2019-05-24] MEDS ORDERED: ACETAMINOPHEN 325 MG TAB PO PRN (21:19)
[2019-05-24] MEDS ORDERED: POLYETHYLENE (MIRALAX) 17 GM PACK PO PRN (21:19)
[2019-05-24] MEDS: FUROSEMIDE 20 MG in SYRINGE 0 ML IV SCH (22:00)
[2019-05-24] MEDS: LOSARTAN POTASSIUM 25 MG TAB PO SCH (22:29)
[2019-05-24] MEDS: SUCRALFATE 1 GM TAB PO SCH (22:29)
[2019-05-24] MEDS: NYSTATIN POWDER 15GM BTL EXT SCH (22:30)
[2019-05-24] MEDS: FAMOTIDINE 20 MG TAB PO SCH (22:30)
[2019-05-24] MEDS: TRAVOPROST Z 0.004% OPH SOLN 2.5 ML BTL OPB SCH (22:31)
[2019-05-24] MEDS: HEPARIN SOD 5,000 UNIT/0.5 ML VIAL SQ SCH (22:32)
--- NOTE | 2019-05-24 23:32 | Emergency Department Note ---
Entered by Karen Uribe acting as a scribe for History of Present Illness General Chief complaint: Shortness of Breath/Dyspnea Time Seen by Provider: 05/24/19 15:17 History of Present Illness Provider complaint: shortness of breath Onset (ago): day(s) 1 Pain Consistency: + other (episode) Quality: + other (shortness of breath) Associated symptoms: + cough and + other (wheezing, O2 saturation of 82% today, got flu shot, increased swelling in lower extremities); no nausea/vomiting Treatments prior to arrival: other (duoneb) The patient is an 89 year old white female w/ PMHx of dementia, ASCVD, SAC, CKD, GERD, HTN, TIA and hyperlipidemia who presents to the ED w/ CC of an episode of shortness of breath beginning 1 day ago. Per daughter, the patient was wheezing yesterday and she has had a cough. The patients daughter states that the patient has never been a smoker. Per daughter, the patients O2 saturation was tested today by [facility] and it was 82%. Per daughter, the patient did get a flu shot this year. The patients daughter states that she has noticed increased swelling in the patients lower extremities. The patient denies nausea and vomiting. Per nursing staff, the patient was given a duoneb en route. Home Medications Home Medications Medication Instructions Recorded Confirmed Type PreserVision AREDS 1 tab PO QAM 07/19/18 05/24/19 History Travatan Z 1 drp OPB HS 07/19/18 05/24/19 History aspirin 81 mg PO QAM 07/19/18 05/24/19 History hydrochlorothiazide 25 mg tablet 25 mg PO QAM #30 tab 11/22/18 05/24/19 Rx carvedilol [Coreg] 3.125 mg PO BIDM 01/14/19 05/24/19 History lorazepam 0.5 mg tablet 0.5 mg PO DAILY PRN #30 tab 01/27/19 05/24/19 Rx losartan 50 mg tablet 25 mg PO HS #15 tab 02/10/19 05/24/19 Rx cholecalciferol (vitamin D3) 25 1,000 unit PO DAILY@1700 #90 cap 02/22/19 05/24/19 Rx mcg (1,000 unit) capsule furosemide 20 mg tablet 20 mg PO 3XWK tab 03/10/19 05/24/19 History escitalopram oxalate 10 mg PO QAM 03/25/19 05/24/19 History pantoprazole 40 mg PO QAM 03/25/19 05/24/19 History sucralfate 1 g PO BID 03/25/19 05/24/19 History famotidine 20 mg tablet 20 mg PO BID #60 tab 05/20/19 05/24/19 Rx Breo Ellipta 1 inh INHALATION DAILY 05/24/19 05/24/19 History benzonatate [Tessalon Perles] 100 mg PO TID PRN 5 Days #15 cap 05/24/19 Rx benzonatate [Tessalon Perles] 100 mg PO TID PRN 5 Days #15 cap 05/24/19 Rx nystatin 1 applic TOPICAL UD 05/24/19 05/24/19 History Allergies Allergy/AdvReac Type Severity Reaction Status Date / Time clindamycin Allergy Severe SHORTNESS Verified 05/24/19 17:08 OF BREATH Cephalosporins Allergy Intermediate RASH-UPSET Verified 05/24/19 17:09 STOMACH Penicillins Allergy Intermediate RASH-UPSET Verified 05/24/19 17:09 STOMACH sulfamethoxazole AdvReac Intermediate Vomiting Verified 05/24/19 17:09 [From Bactrim] trimethoprim [From Bactrim] AdvReac Intermediate Vomiting Verified 05/24/19 17:09 aspirin AdvReac Mild burning is Verified 05/24/19 17:09 stomach Past Med/Surg History Medical History Acute upper GI bleed (Acute) Anxiety (Acute) Aphasia (Acute 04/01/13) ASCVD (arteriosclerotic cardiovascular disease) Atrial premature complexes Burning with urination (Acute) CAD (coronary artery disease) CKD (chronic kidney disease) Coffee ground vomiting (Acute) Delirium Dementia DVT prophylaxis DVT prophylaxis Esophagitis (Acute) GERD (gastroesophageal reflux disease) GERD (gastroesophageal reflux disease) Glaucoma Hearing loss (Chronic) Hyperlipemia Hypertension (Acute 04/01/13) Leukocytosis Osteoarthritis Right inguinal hernia (Acute) SOB (shortness of breath) (Acute) TIA (transient ischemic attack) (Acute) Surgical History History of tonsillectomy and adenoidectomy Family History Mother Breast cancer Myocardial infarction Father Myocardial infarction Social History Preferred Language: Telugu Communication Ability: Effective Hearing Ability: Use of Hearing Aid Ground Support Equipment Mechanic Required: No Beliefs That Will Affect Care: None marital status: / Current Living Situation: Group Home Current Living Situation Comment: [facility] current occupational status: retired Other Information That Helps Us Care for You: No Feels Safe at Home: Yes Safety Concerns: Feels Safe At This Time Smoking Status: Never smoker Second Hand Exposure: No ; Hx Alcohol Use: No Hx Substance Use: No Review of Systems See HPI for pertinent positives & negatives. and A total of 10 systems reviewed and were otherwise negative Physical Exam Vital Signs Vital Signs - 24 hr 05/24/19 14:58 05/24/19 15:18 05/24/19 15:24 Temperature 36.9 C Temperature Source Oral Pulse Rate 105 H 85 Pulse Rate [Apical] Pulse Rate from SpO2 Sensor Pulse Rhythm Irregular Pulse Rhythm [Apical] Respiratory Rate 20 24 Respiratory Effort / Characteristics Spontaneous Respiratory Depth Normal Respiratory Pattern Blood Pressure 224/136 H 224/136 H Blood Pressure [Right Arm] Blood Pressure Mean 137 165 Blood Pressure Mean [Right Arm] Blood Pressure Position Sitting Blood Pressure Position [Right Arm] Pulse Oximetry 88 L 96 Oxygen Delivery Method Room Air Nasal Cannula Oxygen Flow Rate 2 Sepsis Recent Fever Within 48 Hours No Sepsis New/Unexplained Change in Mental Status No Sepsis Action Taken by Nursing No Action Required 05/24/19 15:25 05/24/19 15:30 05/24/19 15:35 Temperature Temperature Source Pulse Rate 86 84 Pulse Rate [Apical] Pulse Rate from SpO2 Sensor 88 84 Pulse Rhythm Pulse Rhythm [Apical] Respiratory Rate 24 23 Respiratory Effort / Characteristics Respiratory Depth Respiratory Pattern Blood Pressure 160/88 H 166/77 H Blood Pressure [Right Arm] Blood Pressure Mean 118 120 Blood Pressure Mean [Right Arm] Blood Pressure Position Blood Pressure Position [Right Arm] Pulse Oximetry 95 96 95 Oxygen Delivery Method Nasal Cannula Oxygen Flow Rate 2 Sepsis Recent Fever Within 48 Hours Sepsis New/Unexplained Change in Mental Status Sepsis Action Taken by Nursing 05/24/19 16:00 05/24/19 16:31 05/24/19 17:00 Temperature Temperature Source Pulse Rate 81 90 82 Pulse Rate [Apical] 81 Pulse Rate from SpO2 Sensor Pulse Rhythm Pulse Rhythm [Apical] Regular Respiratory Rate 24 20 19 Respiratory Effort / Characteristics Respiratory Depth Respiratory Pattern Blood Pressure 172/96 H 168/70 H 164/78 H Blood Pressure [Right Arm] 164/78 H Blood Pressure Mean 117 96 105 Blood Pressure Mean [Right Arm] 106 Blood Pressure Position Blood Pressure Position [Right Arm] Pulse Oximetry 90 Oxygen Delivery Method Oxygen Flow Rate Sepsis Recent Fever Within 48 Hours Sepsis New/Unexplained Change in Mental Status Sepsis Action Taken by Nursing 05/24/19 17:30 05/24/19 19:00 05/24/19 19:28 Temperature Temperature Source Pulse Rate 89 Pulse Rate [Apical] 87 79 Pulse Rate from SpO2 Sensor 106 H Pulse Rhythm Pulse Rhythm [Apical] Respiratory Rate 23 20 23 Respiratory Effort / Characteristics Non-Labored Spontaneous Non-Labored Respiratory Depth Normal Normal Respiratory Pattern Regular Blood Pressure 150/88 H Blood Pressure [Right Arm] 157/84 H 105/79 Blood Pressure Mean 99 Blood Pressure Mean [Right Arm] 108 87 Blood Pressure Position Blood Pressure Position [Right Arm] Lying Pulse Oximetry 88 L 93 93 Oxygen Delivery Method Nasal Cannula Nasal Cannula Oxygen Flow Rate 1 2 Sepsis Recent Fever Within 48 Hours Sepsis New/Unexplained Change in Mental Status Sepsis Action Taken by Nursing GENERAL: Well appearing, well nourished, NAD, non-toxic, nasal cannula in place. EYE EXAM: Normal conjunctiva. PERRL, no anisocoria and EOM's grossly intact w/o pain. OROPHARYNX: Moist mucous membranes. Grossly normal dentition. NECK: Supple, no nuchal rigidity, no adenopathy, non-tender. No signs of meningismus. LUNGS: Bibasilar crackles and scant wheezes. Normal chest wall mechanics. HEART: NSR, no MRG. ABDOMEN: Abdomen soft, non-tender, normo-active bowel sounds, no masses, no rebound or guarding. BACK: No CVA TTP. SKIN: No rashes and no bruising. UPPER EXTREMITIES: Upper extremities are grossly normal. LOWER EXTREMITIES: 3+ pitting edema symmetrically without redness. NEURO EXAM: A&O x3, cranial nerves II-XII grossly intact, normal speech, moves all 4 extremities on command w/o issue. Course Course 1520: Past medical records reviewed. The patient was evaluated in room B12B. A complete history and physical exam was performed. 1736: I updated the patient and her daughter on the test results. I will be taking the patient off of oxygen in order to see how her O2 levels are on room air. 1828: I updated the patient and her daughter on the plan for admission. They verbally agree and understand. 1845: I discussed the patient's case with Dr. Summers [facility], Hospitalist. She will evaluate the patient for further management. Consultations Consultation #1: I discussed the patient's case with Dr. Summers [facility], Hospi talist. She will evaluate the patient for further management. Time: 18:45 Administered Medications Famotidine (Pepcid) 20 mg PO BID RAI Stop: 06/23/19 21:18 Last Admin: 05/24/19 22:30 Dose: 20 mg Documented by: [id number] Heparin Sodium (Porcine) (Heparin Sodium (Porcine)) 5,000 units SQ Q8 RAI Stop: 06/23/19 21:59 Last Admin: 05/24/19 22:32 Dose: 5,000 units Documented by: [id number] Cosigned by: [id number] Furosemide 20 mg/ Syringe 2 mls @ 4 mls/min IV [id number] RAI Stop: 06/23/19 21:44 Last Admin: 05/24/19 22:00 Dose: 4 mls/min Documented by: [id number] Losartan Potassium (Cozaar) 25 mg PO HS RAI Stop: 06/23/19 21:18 Last Admin: 05/24/19 22:29 Dose: 25 mg Documented by: [id number] Nystatin (Mycostatin) 1 appln EXT TID RAI Stop: 06/23/19 21:18 Last Admin: 05/24/19 22:30 Dose: 1 appln Documented by: [id number] Sucralfate (Carafate Tab) 1 gm PO BID RAI Stop: 06/23/19 21:18 Last Admin: 05/24/19 22:29 Dose: 1 gm Documented by: [id number] Discontinued Medications Benzonatate (Tessalon Perle) 100 mg PO NOW ONE Stop: 05/24/19 18:10 Last Admin: 05/24/19 18:31 Dose: Not Given Documented by: [id number] Furosemide (Lasix) 20 mg IV NOW STA Stop: 05/24/19 15:28 Last Admin: 05/24/19 16:10 Dose: 20 mg Documented by: [id number] Furosemide (Lasix) 20 mg IV NOW STA Stop: 05/24/19 18:33 Last Admin: 05/24/19 18:49 Dose: 20 mg Documented by: [id number] Medical Decision Making Differential Diagnosis Differential diagnosis: Etiologies such as infections, reactive airway disease, COPD, pneumonia, pleural effusion, pulmonary edema, ARDS, pneumothorax, CHF, cardiac ischemia, cardiac tamponade, dysrhythmia, anemia, pulmonary embolism, musculoskeletal, gastrointestinal process, as well as others were entertained. Medical Records Attestation: I reviewed the patient's medical records. Home Medications Current Medication List: was personally reviewed by me Laboratory Data Attestation: I reviewed the patient's lab results. Result diagrams: 05/24/19 15:46 05/24/19 15:46 Lab Results 05/24/19 05/24/19 05/24/19 Range/Units 15:10 15:45 15:46 WBC 16.03 H (4.8-10.8) K/uL RBC 4.39 (4.2-5.4) M/uL Hgb 12.8 (12.0-16.0) g/dL Hct 39.7 (37-47) % MCV 90.4 (80-100) fL MCH 29.2 (25-34) pg MCHC 32.2 (32-36) g/dL RDW Std Deviation 52.9 H (36.4-46.3) fL RDW Coeff of Mandi 16.2 H (11.5-14.5) % Plt Count 630 H (130-400) K/uL MPV 11.3 H (7.4-10.4) fL Immature Gran % (Auto) 0.7 % Neut % (Auto) 76.5 % Lymph % (Auto) 11.7 % [place] % (Auto) 8.0 % Eos % (Auto) 2.8 % Baso % (Auto) 0.3 % Immature Gran # (Auto) 0.11 H (0.00-0.02) K/uL Neut # (Auto) 12.27 H (1.4-6.5) K/uL Lymph # (Auto) 1.87 (1.2-3.4) K/uL [place] # (Auto) 1.28 H (0.11-0.59) K/uL Eos # (Auto) 0.45 (0-0.5) K/uL Baso # (Auto) 0.05 (0-0.2) K/uL PT (9.0-12.0) Seconds INR (0.9-1.1) APTT (21.0-31.0) Seconds PTT Ratio VBG pH (7.36-7.41) VBG pCO2 (38-50) mmHg VBG pO2 mmHg VBG HCO3 mmol/L VBG O2 Saturation % VBG Base Excess mEq/L Barometric Pressure mm/Hg Sodium (136-145) mmol/L Potassium (3.5-5.1) mmol/L Chloride (98-107) mmol/L Carbon Dioxide (21-32) mmol/L Anion Gap (3-11) BUN (7-18) mg/dl Creatinine (0.6-1.2) mg/dl Est Cr Clr Drug Dosing ml/min Est GFR ( Amer) Est GFR (Non-Af Amer) BUN/Creatinine Ratio (10-20) Glucose (70-99) mg/dl Calcium (8.5-10.1) mg/dl Total Bilirubin (0.2-1) mg/dl AST (15-37) U/L ALT (12-78) U/L Alkaline Phosphatase (45-117) U/L Troponin I (0-0.045) ng/ml NT-Pro-B Natriuret Pep (0-1800) pg/ml Total Protein (6.4-8.2) gm/dl Albumin (3.4-5.0) gm/dl Globulin (2.5-4.0) gm/dl Albumin/Globulin Ratio (0.9-2) Procalcitonin (0-0.5) ng/ml Urine Color Yellow Urine Appearance Cloudy A (Clear) Urine pH 6.5 (4.5-7.5) Ur Specific [place] 1.010 (1.000-1.030) Urine Protein Negative (Negative) Urine Glucose (UA) Negative (Negative) Urine Ketones Negative (Negative) Urine Blood Negative (Negative) Urine Nitrite Negative (Negative) Urine Bilirubin Negative (Negative) Urine Urobilinogen Negative (Negative) Ur Leukocyte Esterase Negative (Negative) Urine WBC (Auto) 1-5 (0-5) /hpf Urine RBC (Auto) 0-4 (0-4) /hpf U Hyaline Cast (Auto) 1-5 (0-5) /lpf U Epithel Cells (Auto) >30 H (0-5) /lpf Urine Bacteria (Auto) Negative (Negative) Influenza Type A (PCR) Neg for Influ A (Neg) Influenza Type B (PCR) Neg for Influ B (Neg) 05/24/19 05/24/19 05/24/19 Range/Units 15:46 15:46 15:46 WBC (4.8-10.8) K/uL RBC (4.2-5.4) M/uL Hgb (12.0-16.0) g/dL Hct (37-47) % MCV (80-100) fL MCH (25-34) pg MCHC (32-36) g/dL RDW Std Deviation (36.4-46.3) fL RDW Coeff of Mandi (11.5-14.5) % Plt Count (130-400) K/uL MPV (7.4-10.4) fL Immature Gran % (Auto) % Neut % (Auto) % Lymph % (Auto) % [place] % (Auto) % Eos % (Auto) % Baso % (Auto) % Immature Gran # (Auto) (0.00-0.02) K/uL Neut # (Auto) (1.4-6.5) K/uL Lymph # (Auto) (1.2-3.4) K/uL [place] # (Auto) (0.11-0.59) K/uL Eos # (Auto) (0-0.5) K/uL Baso # (Auto) (0-0.2) K/uL PT 10.3 (9.0-12.0) Seconds INR 1.0 (0.9-1.1) APTT 28.5 (21.0-31.0) Seconds PTT Ratio 1.1 VBG pH 7.38 (7.36-7.41) VBG pCO2 53 H (38-50) mmHg VBG pO2 32 mmHg VBG HCO3 30 mmol/L VBG O2 Saturation < 60.0 % VBG Base Excess 3.9 mEq/L Barometric Pressure 731.3 mm/Hg Sodium 137 (136-145) mmol/L Potassium 3.8 (3.5-5.1) mmol/L Chloride 103 (98-107) mmol/L Carbon Dioxide 31 (21-32) mmol/L Anion Gap 3.0 (3-11) BUN 22 H (7-18) mg/dl Creatinine 1.38 H (0.6-1.2) mg/dl Est Cr Clr Drug Dosing 26.7 ml/min Est GFR ( Amer) 39.2 Est GFR (Non-Af Amer) 33.8 BUN/Creatinine Ratio 15.7 (10-20) Glucose 124 H (70-99) mg/dl Calcium 8.8 (8.5-10.1) mg/dl Total Bilirubin 0.3 (0.2-1) mg/dl AST 18 (15-37) U/L ALT 28 (12-78) U/L Alkaline Phosphatase 92 (45-117) U/L Troponin I < 0.015 (0-0.045) ng/ml NT-Pro-B Natriuret Pep (0-1800) pg/ml Total Protein 6.8 (6.4-8.2) gm/dl Albumin 3.4 (3.4-5.0) gm/dl Globulin 3.4 (2.5-4.0) gm/dl Albumin/Globulin Ratio 1.0 (0.9-2) Procalcitonin (0-0.5) ng/ml Urine Color Urine Appearance (Clear) Urine pH (4.5-7.5) Ur Specific [place] (1.000-1.030) Urine Protein (Negative) Urine Glucose (UA) (Negative) Urine Ketones (Negative) Urine Blood (Negative) Urine Nitrite (Negative) Urine Bilirubin (Negative) Urine Urobilinogen (Negative) Ur Leukocyte Esterase (Negative) Urine WBC (Auto) (0-5) /hpf Urine RBC (Auto) (0-4) /hpf U Hyaline Cast (Auto) (0-5) /lpf U Epithel Cells (Auto) (0-5) /lpf Urine Bacteria (Auto) (Negative) Influenza Type A (PCR) (Neg) Influenza Type B (PCR) (Neg) 05/24/19 05/24/19 Range/Units 15:46 15:48 WBC (4.8-10.8) K/uL RBC (4.2-5.4) M/uL Hgb (12.0-16.0) g/dL Hct (37-47) % MCV (80-100) fL MCH (25-34) pg MCHC (32-36) g/dL RDW Std Deviation (36.4-46.3) fL RDW Coeff of Mandi (11.5-14.5) % Plt Count (130-400) K/uL MPV (7.4-10.4) fL Immature Gran % (Auto) % Neut % (Auto) % Lymph % (Auto) % [place] % (Auto) % Eos % (Auto) % Baso % (Auto) % Immature Gran # (Auto) (0.00-0.02) K/uL Neut # (Auto) (1.4-6.5) K/uL Lymph # (Auto) (1.2-3.4) K/uL [place] # (Auto) (0.11-0.59) K/uL Eos # (Auto) (0-0.5) K/uL Baso # (Auto) (0-0.2) K/uL PT (9.0-12.0) Seconds INR (0.9-1.1) APTT (21.0-31.0) Seconds PTT Ratio VBG pH (7.36-7.41) VBG pCO2 (38-50) mmHg VBG pO2 mmHg VBG HCO3 mmol/L VBG O2 Saturation % VBG Base Excess mEq/L Barometric Pressure mm/Hg Sodium (136-145) mmol/L Potassium (3.5-5.1) mmol/L Chloride (98-107) mmol/L Carbon Dioxide (21-32) mmol/L Anion Gap (3-11) BUN (7-18) mg/dl Creatinine (0.6-1.2) mg/dl Est Cr Clr Drug Dosing ml/min Est GFR ( Amer) Est GFR (Non-Af Amer) BUN/Creatinine Ratio (10-20) Glucose (70-99) mg/dl Calcium (8.5-10.1) mg/dl Total Bilirubin (0.2-1) mg/dl AST (15-37) U/L ALT (12-78) U/L Alkaline Phosphatase (45-117) U/L Troponin I (0-0.045) ng/ml NT-Pro-B Natriuret Pep 1376 (0-1800) pg/ml Total Protein (6.4-8.2) gm/dl Albumin (3.4-5.0) gm/dl Globulin (2.5-4.0) gm/dl Albumin/Globulin Ratio (0.9-2) Procalcitonin < 0.05 (0-0.5) ng/ml Urine Color Urine Appearance (Clear) Urine pH (4.5-7.5) Ur Specific [place] (1.000-1.030) Urine Protein (Negative) Urine Glucose (UA) (Negative) Urine Ketones (Negative) Urine Blood (Negative) Urine Nitrite (Negative) Urine Bilirubin (Negative) Urine Urobilinogen (Negative) Ur Leukocyte Esterase (Negative) Urine WBC (Auto) (0-5) /hpf Urine RBC (Auto) (0-4) /hpf U Hyaline Cast (Auto) (0-5) /lpf U Epithel Cells (Auto) (0-5) /lpf Urine Bacteria (Auto) (Negative) Influenza Type A (PCR) (Neg) Influenza Type B (PCR) (Neg) Imaging Data Radiologist's Impression: Radiology results as stated below per my review and the radiologist's interpretation: XR chest 1V portable CLINICAL HISTORY: Dyspnea dyspnea COMPARISON STUDY: 01/14/2019 FINDINGS: The bones soft tissues and hemidiaphragms are normal. The cardiomediastinal silhouette is normal. The lungs are clear. The pulmonary vasculature is normal. IMPRESSION: Negative chest. ACT 112: Negative or not required by law. The above report was generated using voice recognition software. It may contain grammatical, syntax or spelling errors. Electronically signed by: David Escamilla M.D. 05/24/2019 3:42 PM ECG Data Attestation: I personally reviewed and interpreted this ECG as follows: Indication: + SOB/dyspnea Rate (beats per minute): 85 Rhythm: + sinus rhythm ECG Intervals/blocks: + Normal QRS, + Normal VT and + Normal QT-c ECG [place]: + Left axis deviation ECG ST segments: + T-wave inversions (high lateral leads) ECG Findings: + PVCs Comparison ECG Date: from (01/14/2019) Change: no significant change Blood Pressure Blood Pressure Findings: Elevated blood pressure Blood Pressure Disposition: further management by hospitalist VÍCTOR Rivera The patient is an 89 year old white female w/ PMHx of dementia, ASCVD, SAC, CKD, GERD, HTN, TIA and hyperlipidemia who presents to the ED w/ CC of an episode of shortness of breath beginning 1 day ago. Patient was seen and evaluated the bedside. The patient has been having some worsening lower extremity swelling and associated cough. The patient does live at a alf. The patient looks comfortable in appearance at the bedside. Patient did a blood work completed along with an EKG troponin chest x-ray. It was reported the patient was hypoxic prior to arrival at her care facility did receive 1 DuoNeb in route. The patient's chest x-ray appears clear. The pat ient does have a mild white count and thrombocytosis. The patient was given a dose of Lasix 20 mg IV initially. The patient had been requiring 1 to 2 L of oxygen via nasal cannula. Upon reassessment I did discuss doing ambulatory trial and the patient was still somewhat reliant on the oxygen and family was concerned as the care facility does not have routine checks overnight. Patient was given additional IV dose of Lasix and did speak the on-call hospitalist agreed to further evaluate treat the patient. Patient was subsequently admitted to the medicine service. Impression & Plan CHF (congestive heart failure), Cough, Bilateral edema of lower extremity, Fluid overload, Hypoxia Discharge Plan Visit Data *Final* Discharge Date/Time: 05/24/19 20:46 Chief Complaint: Shortness of Breath/Dyspnea ED Provider: Raafel Mistry Discharge Problem: CHF (congestive heart failure), Cough, Bilateral edema of lower extremity, Fluid overload, Hypoxia Patient Disposition: Being Evaluated by Hospitalist Condition: Good Discharge Instructions Interventions: ED Discharge Assessment Last Done: 05/24/19 20:46 Discharge Problem: CHF (congestive heart failure) Qualifiers: Heart failure type: unspecified Heart failure chronicity: acute Qualified Code(s): I50.9 - Heart failure, unspecified Fluid overload Qualifiers: Hypervolemia type: unspecified Qualified Code(s): E87.70 - Fluid overload, unspecified The scribe's documentation has been prepared under my direction and personally reviewed by me in its entirety. I confirm that the note above accurately reflects all work, treatment, procedures, and medical decision making performed by me.
[2019-05-25 06:01] LABS: Basophils # (auto) 0.01 K/uL (0-0.2); Basophils % (auto) 0.1 %; Hematocrit (blood only) 40.2 % (37-47); Hemoglobin 13.2 g/dL (12.0-16.0); Immature Granulocytes # (auto) 0.15 K/uL (0.00-0.02); Immature Granulocytes % (auto) 0.9 %; Lymphocytes # (auto) 1.27 K/uL (1.2-3.4); Lymphocytes % (auto) 7.9 %; Mean Corpuscular Hemoglobin 29.5 pg (25-34); Mean Corpuscular Hgb Conc 32.8 g/dL (32-36); Mean Corpuscular Volume 89.7 fL (80-100); Mean Platelet Volume 11.2 fL (7.4-10.4); Monocytes # (auto) 0.61 K/uL (0.11-0.59); Monocytes % (auto) 3.8 %; Neutrophils # (auto) 14.02 K/uL (1.4-6.5); Neutrophils % (auto) 87.3 %; Platelet Count 664 K/uL (130-400); RDW Coefficient of Variation 16.4 % (11.5-14.5); Red Blood Count 4.48 M/uL (4.2-5.4); White Blood Count 16.06 K/uL (4.8-10.8)
[2019-05-25] MEDS: HEPARIN SOD 5,000 UNIT/0.5 ML VIAL SQ SCH ×2 (06:01→20:01)
[2019-05-25 06:41] LABS: Albumin Level 3.3 gm/dl (3.4-5.0); BUN Creatinine Ratio 22.7 (10-20); Calcium 8.8 mg/dl (8.5-10.1); Est GFR (African American) 41.7; Potassium 3.3 mmol/L (3.5-5.1)
[2019-05-25 06:42] LABS: Bilirubin,Total 0.4 mg/dl (0.2-1); Globulin 3.4 gm/dl (2.5-4.0); Total Protein 6.7 gm/dl (6.4-8.2)
[2019-05-25 06:46] LABS: Estimated Average Glucose 128 mg/dl; Hemoglobin A1C 6.1 % (4.5-5.6)
[2019-05-25] MEDS: FAMOTIDINE 20 MG TAB PO SCH ×2 (08:10→20:00)
[2019-05-25] MEDS: CEROVITE ADV FORMULA TAB PO SCH (08:10)
[2019-05-25] MEDS: ESCITALOPRAM OXALATE 10 MG TAB PO SCH (08:10)
[2019-05-25] MEDS: SUCRALFATE 1 GM TAB PO SCH ×2 (08:10→20:00)
[2019-05-25] MEDS: carvediloL 3.125 MG TAB PO SCH ×2 (08:10→16:25)
[2019-05-25] MEDS: NYSTATIN POWDER 15GM BTL EXT SCH ×3 (08:11→20:01)
[2019-05-25] MEDS: PANTOprazole 40 MG TAB PO SCH (08:11)
[2019-05-25] MEDS: ASPIRIN 81 MG ECTAB PO SCH (08:11)
[2019-05-25] MEDS: FUROSEMIDE 20 MG in SYRINGE 0 ML IV SCH (08:16)
--- NOTE | 2019-05-25 13:10 | Hospitalist Progress Note ---
Date of Service May 25, 2019 Assessment & Plan (1) Cough: CXR on 05/24 showed clear lungs. She has wheezing on exam. - Continue DuoNebs standing and PRN - Start low-dose prednisone - Continue Breo Ellipta 1 inhalation daily. - PRN O2 (2) CHF (congestive heart failure): Initially thought shortness of breath to be due to CHF; however, not sure this is the case. Echo on 05/25/19 showed EF 60-65%; mild LVH. At this point, do NOT think CHF is playing a role. - Stop Lasix - Continue beta-willy, ACEi, ASA (3) Acute respiratory failure: Procalcitonin negative, chest x-ray is negative for pneumonia. Less likely bacterial or viral infection. - Continue supportive treatment as above (4) Leukocytosis: Elevated leukocytosis to 16,000. Has had other highs in this range. - Monitor for focal infection. 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 every morning, - Continue Lorazepam 0.5 mg p.o. daily as needed. (6) GERD (gastroesophageal reflux disease): Continue pantoprazole 40 mg p.o. every morning, continue sucralfate 1 mg p.o. twice daily for gastritis. (7) DVT prophylaxis: Heparin Subjective Feeling like her breathing has improved. Some cough. No sputum. Reports no fevers/chills, chest pain, shortness of breath, abdominal pain, nausea, or vomiting. Physical Exam Constitutional: WD/WN, vitals as above Eyes: EOM intact bilaterally; no conjunctival abnormality ENMT: external ear and nose normal, oropharynx normal Neck: trachea midline, no thyromegaly normal visual inspection Respiratory: normal respiratory effort, lungs clear to auscultation no respiratory distress Cardiovascular: RRR, no murmur, no edema Gastrointestinal (Abdomen): Inspection/Auscultation: abdomen normal to inspection; abdomen not distended Musculoskeletal: no cyanosis or clubbing, extremities motor strength 5/5 Skin: no rashes, warm and dry Neurologic: moves all extremities and awake Psychiatric: Orientation: alert, oriented to person and cooperative Results & Data Vital Signs (Past 12 Hours) Vital Signs Temp Pulse Resp BP Pulse Ox 05/25/19 12:20 36.7 C 87 21 126/69 94 05/25/19 07:53 36.9 C 94 H 24 166/96 H 93 05/25/19 03:53 36.5 C 75 18 133/70 91 PG Care Time/CCT Total # of Minutes Spent Total Time Spent with Patient: Total time spent is greater than 50% in coordination of care (as documented) at patient's floor/unit and/or counseling patient: (1) CHF (congestive heart failure) Heart failure chronicity: acute Heart failure type: unspecified Qualified Code(s): I50.9 - Heart failure, unspecified
[2019-05-25] MEDS ORDERED: ALBUT/IPRATROP 3MG/0.5MG NEB 3 ML VIAL NEB PRN (13:18)
[2019-05-25] MEDS: predniSONE 20 MG TAB PO SCH (14:15)
[2019-05-25] MEDS: CHOLECALCIFEROL 1,000 UNITS 25 MCG TAB PO SCH (16:25)
[2019-05-25] MEDS: ALBUT/IPRATROP 3MG/0.5MG NEB 3 ML VIAL NEB SCH (19:36)
[2019-05-25] MEDS: LORazepam 0.5 MG TAB PO PRN (20:00)
[2019-05-25] MEDS: LOSARTAN POTASSIUM 25 MG TAB PO SCH (20:00)
[2019-05-25] MEDS: TRAVOPROST Z 0.004% OPH SOLN 2.5 ML BTL OPB SCH (20:01)
[2019-05-25] MEDS: BUDESONIDE/FORMOTEROL FUMARATE 80/4.5 60 PUFFS/INHALER INH SCH (20:02)
[2019-05-26 05:57] LABS: Basophils # (auto) 0.01 K/uL (0-0.2); Basophils % (auto) 0.1 %; Hematocrit (blood only) 39.3 % (37-47); Hemoglobin 12.5 g/dL (12.0-16.0); Immature Granulocytes # (auto) 0.12 K/uL (0.00-0.02); Immature Granulocytes % (auto) 0.7 %; Lymphocytes # (auto) 1.29 K/uL (1.2-3.4); Lymphocytes % (auto) 7.4 %; Mean Corpuscular Hemoglobin 28.7 pg (25-34); Mean Corpuscular Hgb Conc 31.8 g/dL (32-36); Mean Corpuscular Volume 90.3 fL (80-100); Monocytes # (auto) 1.75 K/uL (0.11-0.59); Neutrophils # (auto) 14.27 K/uL (1.4-6.5); Neutrophils % (auto) 81.8 %; Platelet Count 687 K/uL (130-400); RDW Coefficient of Variation 16.5 % (11.5-14.5); RDW Standard Deviation 53.9 fL (36.4-46.3); Red Blood Count 4.35 M/uL (4.2-5.4); White Blood Count 17.44 K/uL (4.8-10.8)
[2019-05-26 06:35] LABS: Albumin Level 3.3 gm/dl (3.4-5.0); BUN Creatinine Ratio 28.3 (10-20); Calcium 8.9 mg/dl (8.5-10.1); Creatinine Clr Calc Pharmacy 30.2 ml/min; Est GFR (African American) 45.9; Est GFR (Non-African American) 39.6; Potassium 3.2 mmol/L (3.5-5.1)
[2019-05-26 06:37] LABS: Albumin Globulin Ratio 1.1 (0.9-2); Bilirubin,Total 0.3 mg/dl (0.2-1); Globulin 3.1 gm/dl (2.5-4.0); Total Protein 6.4 gm/dl (6.4-8.2)
[2019-05-26] MEDS: ALBUT/IPRATROP 3MG/0.5MG NEB 3 ML VIAL NEB SCH ×4 (07:18→19:08)
[2019-05-26] MEDS: ASPIRIN 81 MG ECTAB PO SCH (08:09)
[2019-05-26] MEDS: predniSONE 20 MG TAB PO SCH (08:09)
[2019-05-26] MEDS: NYSTATIN POWDER 15GM BTL EXT SCH ×3 (08:10→20:14)
[2019-05-26] MEDS: PANTOprazole 40 MG TAB PO SCH (08:10)
[2019-05-26] MEDS: BUDESONIDE/FORMOTEROL FUMARATE 80/4.5 60 PUFFS/INHALER INH SCH ×2 (08:10→20:15)
[2019-05-26] MEDS: FAMOTIDINE 20 MG TAB PO SCH ×2 (08:10→20:12)
[2019-05-26] MEDS: ESCITALOPRAM OXALATE 10 MG TAB PO SCH (08:10)
[2019-05-26] MEDS: carvediloL 3.125 MG TAB PO SCH ×2 (08:10→16:45)
[2019-05-26] MEDS: SUCRALFATE 1 GM TAB PO SCH ×2 (08:10→20:10)
[2019-05-26] MEDS: CEROVITE ADV FORMULA TAB PO SCH (08:10)
[2019-05-26] MEDS: HEPARIN SOD 5,000 UNIT/0.5 ML VIAL SQ SCH ×3 (08:11→20:27)
[2019-05-26] MEDS ORDERED: FUROSEMIDE 20 MG in SYRINGE 0 ML IV ONE (12:00)
[2019-05-26] MEDS: POTASSIUM CHLORIDE 20 MEQ TABCR PO SCH ×2 (12:05→20:12)
--- NOTE | 2019-05-26 13:51 | XRay Report ---
XR chest 2V PA/lateral CLINICAL HISTORY: Shortness of breath COMPARISON STUDY: 05/24/2019 FINDINGS: The cardiac and mediastinal contours are normal. There is no evidence of focal pulmonary co nsolidation. There is no evidence of failure. No pleural effusions are visualized.[ IMPRESSION: No active disease in the chest. ACT 112: Negative or not required by law. Electronically signed by: Marcos Griffiths M.D. 05/26/2019 1:50 PM
--- NOTE | 2019-05-26 14:35 | Hospitalist Progress Note ---
Date of Service May 26, 2019 Assessment & Plan (1) Cough: CXRs on 05/24 and 05/26 showed clear lungs. She has wheezing on exam. - Continue DuoNebs standing and PRN - Started prednisone 40 mg PO daily on 05/25 - Added azithromycin, Mucinex, and increased nebs on 05/26 for continued shortn ess of breath and cough - Sputum culture if able to get one - Continue Breo Ellipta 1 inhalation daily. - PRN O2 (2) CHF (congestive heart failure): Initially thought shortness of breath to be due to CHF; however, not sure this is the case. Echo on 05/25/19 showed EF 60-65%; mild LVH. At this point, do NOT think CHF is playing a role. - Stop Lasix - Continue beta-willy, ACEi, ASA (3) Acute respiratory failure: Procalcitonin negative, chest x-ray is negative for pneumonia. Less likely bacterial infection. - Continue supportive treatment as above (4) Leukocytosis: Elevated leukocytosis to 16,000. Has had other highs in this range. - Monitor for focal infection. Now on steroids which will compound the issue. 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 every morning, - Continue Lorazepam 0.5 mg p.o. daily as needed. (6) GERD (gastroesophageal reflux disease): Continue pantoprazole 40 mg p.o. every morning, continue sucralfate 1 mg p.o. twice daily for gastritis. (7) DVT prophylaxis: Heparin Subjective Patient reports feeling stable in the morning, then I returned at the son's request, and he felt she was doing worse. Some extra coughing a bit of extra sputum production. She reports some abdominal pain in the upper areas, under the rib cage. Reports no fevers/chills, chest pain, nausea, or vomiting. Physical Exam Constitutional: WD/WN, vitals as above + acute distress and + frail appearing Eyes: EOM intact bilaterally; no conjunctival abnormality ENMT: external ear and nose normal, oropharynx normal Neck: trachea midline, no thyromegaly normal visual inspection Respiratory: + labored breathing and + cough; no respiratory distress Auscultation: + wheezes Cardiovascular: RRR, no murmur, no edema Gastrointestinal (Abdomen): Inspection/Auscultation: abdomen normal to inspection; abdomen not distended Musculoskeletal: no cyanosis or clubbing, extremities motor strength 5/5 Skin: no rashes, warm and dry Neurologic: moves all extremities and awake Psychiatric: Orientation: alert, oriented to person and cooperative Results & Data Vital Signs (Past 12 Hours) Vital Signs Temp Pulse Resp BP Pulse Ox 05/26/19 11:10 36.6 C 67 20 137/78 98 05/26/19 07:18 77 16 97 05/26/19 07:05 36.6 C 81 28 H 147/83 H 93 05/26/19 04:08 36.6 C 68 18 153/90 H 96 PG Care Time/CCT Total # of Minutes Spent Total Time Spent with Patient: Total time spent is greater than 50% in coordination of care (as documented) at patient's floor/unit and/or counseling patient: (1) CHF (congestive heart failure) Heart failure chronicity: acute Heart failure type: unspecified Qualified Code(s): I50.9 - Heart failure, unspecified
[2019-05-26] MEDS: AZITHROMYCIN 250 MG TAB PO SCH (16:45)
[2019-05-26] MEDS: CHOLECALCIFEROL 1,000 UNITS 25 MCG TAB PO SCH (16:45)
[2019-05-26] MEDS: LORazepam 0.5 MG TAB PO PRN (20:10)
[2019-05-26] MEDS: guaiFENesin 600 MG TABCR PO SCH (20:11)
[2019-05-26] MEDS: TRAVOPROST Z 0.004% OPH SOLN 2.5 ML BTL OPB SCH (20:13)
[2019-05-26] MEDS: LOSARTAN POTASSIUM 25 MG TAB PO SCH (20:14)
[2019-05-27 04:59] LABS: Basophils # (auto) 0.02 K/uL (0-0.2); Basophils % (auto) 0.2 %; Eosinophils # (auto) 0.01 K/uL (0-0.5); Eosinophils % (auto) 0.1 %; Hematocrit (blood only) 37.8 % (37-47); Immature Granulocytes # (auto) 0.19 K/uL (0.00-0.02); Immature Granulocytes % (auto) 1.5 %; Lymphocytes # (auto) 1.49 K/uL (1.2-3.4); Lymphocytes % (auto) 11.4 %; Mean Corpuscular Hemoglobin 28.8 pg (25-34); Mean Corpuscular Hgb Conc 31.7 g/dL (32-36); Mean Corpuscular Volume 90.9 fL (80-100); Mean Platelet Volume 10.8 fL (7.4-10.4); Monocytes # (auto) 1.39 K/uL (0.11-0.59); Monocytes % (auto) 10.6 %; Neutrophils % (auto) 76.2 %; Platelet Count 683 K/uL (130-400); RDW Coefficient of Variation 16.3 % (11.5-14.5); RDW Standard Deviation 53.8 fL (36.4-46.3); Red Blood Count 4.16 M/uL (4.2-5.4)
[2019-05-27 05:26] LABS: BUN Creatinine Ratio 26.1 (10-20); Calcium 8.4 mg/dl (8.5-10.1); Creatinine Clr Calc Pharmacy 32.9 ml/min; Magnesium 1.9 mg/dl (1.8-2.4); Phosphorus 2.7 mg/dl (2.5-4.9); Potassium 3.7 mmol/L (3.5-5.1)
[2019-05-27] MEDS: ALBUT/IPRATROP 3MG/0.5MG NEB 3 ML VIAL NEB SCH ×4 (07:10→18:59)
[2019-05-27] MEDS: SUCRALFATE 1 GM TAB PO SCH ×2 (08:07→20:45)
[2019-05-27] MEDS: CEROVITE ADV FORMULA TAB PO SCH (08:07)
[2019-05-27] MEDS: PANTOprazole 40 MG TAB PO SCH (08:07)
[2019-05-27] MEDS: ESCITALOPRAM OXALATE 10 MG TAB PO SCH (08:07)
[2019-05-27] MEDS: guaiFENesin 600 MG TABCR PO SCH ×2 (08:07→20:45)
[2019-05-27] MEDS: carvediloL 3.125 MG TAB PO SCH ×2 (08:07→17:28)
[2019-05-27] MEDS: AZITHROMYCIN 250 MG TAB PO SCH (08:08)
[2019-05-27] MEDS: FAMOTIDINE 20 MG TAB PO SCH ×2 (08:08→20:45)
[2019-05-27] MEDS: ASPIRIN 81 MG ECTAB PO SCH (08:08)
[2019-05-27] MEDS: POTASSIUM CHLORIDE 20 MEQ TABCR PO SCH ×2 (08:08→20:45)
[2019-05-27] MEDS: BUDESONIDE/FORMOTEROL FUMARATE 80/4.5 60 PUFFS/INHALER INH SCH ×2 (08:08→20:44)
[2019-05-27] MEDS: predniSONE 20 MG TAB PO SCH (08:09)
[2019-05-27] MEDS: NYSTATIN POWDER 15GM BTL EXT SCH ×3 (08:09→20:45)
[2019-05-27] MEDS: HEPARIN SOD 5,000 UNIT/0.5 ML VIAL SQ SCH ×2 (08:09→20:44)
--- NOTE | 2019-05-27 12:55 | CT Scan Report ---
CT chest wo con CT DOSE: 483.31 mGycm HISTORY: Dyspnea Hypoxemia and cough TECHNIQUE: Multiaxial CT images of the chest were performed without contrast. A dose lowering techni que was utilized adhering to the principles of ALARA. COMPARISON: 09/15/2018 FINDINGS: The lungs are clear. The mediastinal vascular structures are within normal limits. No media stinal or hilar lymphadenopathy. No pleural effusion or pneumothorax. Limited views of the upper abdo men demonstrate a normal liver and spleen. Atherosclerotic change and ectasia thoracic aorta consider ed unaltered from the prior exam. IMPRESSION: No acute process. The lungs are considered clear. ACT 112: Negative or not required by law. The above report was generated using voice recognition software. It may contain grammatical, syntax or spelling errors. Electronically signed by: David Escamilla M.D. 05/27/2019 12:54 PM
--- NOTE | 2019-05-27 12:59 | Hospitalist Progress Note ---
Date of Service May 27, 2019 Assessment & Plan (1) Cough: CXRs on 05/24 and 05/26 showed clear lungs. She has wheezing on exam. - Continue DuoNebs standing and PRN - Started prednisone 40 mg PO daily on 05/25 - Added azithromycin, Mucinex, and increased nebs on 05/26 for continued shortn ess of breath and cough - Sputum culture if able to get one - Continue Breo Ellipta 1 inhalation daily. - PRN O2 - Discussed with pulm on 05/27 - Will get chest CT. Plan for COPD clinic on discharge. (2) CHF (congestive heart failure): Initially thought shortness of breath to be due to CHF; however, not sure this is the case. Echo on 05/25/19 showed EF 60-65%; mild LVH. At this point, do NOT think CHF is playing a role. - Stop Lasix - Continue beta-willy, ACEi, ASA (3) Acute respiratory failure: Procalcitonin negative, chest x-ray is negative for pneumonia. Less likely bacterial infection. - Continue supportive treatment as above (4) Leukocytosis: Elevated leukocytosis to 16,000. Has had other highs in this range. - Monitor for focal infection. Now on steroids which will compound the issue. 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 every morning, - Continue lorazepam 0.5 mg p.o. daily as needed. (6) GERD (gastroesophageal reflux disease): Continue pantoprazole 40 mg p.o. every morning, continue sucralfate 1 mg p.o. twice daily for gastritis. (7) DVT prophylaxis: Heparin 5000 units SQ Q12h Subjective Feels she is breathing better. Still with productive cough. Reports no fevers/chills, chest pain, shortness of breath, abdominal pain, nausea, or vomiting. Physical Exam Constitutional: WD/WN, vitals as above + acute distress and + frail appearing Eyes: EOM intact bilaterally; no conjunctival abnormality ENMT: external ear and nose normal, oropharynx normal Neck: trachea midline, no thyromegaly normal visual inspection Respiratory: normal respiratory effort, lungs clear to auscultation + labored breathing and + cough; no respiratory distress Auscultation: + wheezes Cardiovascular: RRR, no murmur, no edema Gastrointestinal (Abdomen): Inspection/Auscultation: abdomen normal to inspection; abdomen not distended Musculoskeletal: no cyanosis or clubbing, extremities motor strength 5/5 Skin: no rashes, warm and dry Neurologic: moves all extremities and awake Psychiatric: Orientation: alert, oriented to person and cooperative Results & Data Vital Signs (Past 12 Hours) Vital Signs Temp Pulse Pulse Resp BP Pulse Ox Pulse Ox 05/27/19 11:20 69 18 95 05/27/19 10:37 94 05/27/19 10:35 36.8 C 69 19 168/75 H 95 05/27/19 08:00 65 05/27/19 07:12 63 18 97 05/27/19 07:00 36.9 C 61 18 191/92 H 97 05/27/19 03:43 36.9 C 77 18 155/89 H 94 Pulse Ox 05/27/19 11:20 05/27/19 10:37 90 05/27/19 10:35 05/27/19 08:00 05/27/19 07:12 05/27/19 07:00 05/27/19 03:43 PG Care Time/CCT Total # of Minutes Spent Total Time Spent with Patient: Total time spent is greater than 50% in coordination of care (as documented) at patient's floor/unit and/or counseling patient: (1) CHF (congestive heart failure) Heart failure chronicity: acute Heart failure type: unspecified Qualified Code(s): I50.9 - Heart failure, unspecified
[2019-05-27] MEDS: CHOLECALCIFEROL 1,000 UNITS 25 MCG TAB PO SCH (17:28)
[2019-05-27] MEDS: TRAVOPROST Z 0.004% OPH SOLN 2.5 ML BTL OPB SCH (20:44)
[2019-05-27] MEDS: LOSARTAN POTASSIUM 25 MG TAB PO SCH (20:45)
--- NOTE | 2019-05-27 23:23 | Electrocardiogram Report ---
Test Reason : Blood Pressure : / mmHG Vent. Rate : 064 BPM Atrial Rate : 064 BPM P-R Int : 146 ms QRS Dur : 084 ms QT Int : 446 ms P-R-T Axes : 073 -20 103 degrees QTc Int : 460 ms Normal sinus rhythm Minimal voltage criteria for LVH, may be normal variant Nonspecific ST and T wave abnormality Abnormal ECG When compared with ECG of 24-MAY-2019 15:19, Premature ventricular complexes are no longer Present Confirmed by Александр Bowers ([id number]) on 05/27/2019 11:23:50 PM Referred By: Britney Pfeiffer Confirmed By:Александр Bowers
[2019-05-28 06:02] LABS: Hematocrit (blood only) 39.8 % (37-47); Hemoglobin 12.6 g/dL (12.0-16.0); Mean Corpuscular Hemoglobin 28.9 pg (25-34); Mean Corpuscular Hgb Conc 31.7 g/dL (32-36); Mean Corpuscular Volume 91.3 fL (80-100); Mean Platelet Volume 10.6 fL (7.4-10.4); Platelet Count 707 K/uL (130-400); RDW Coefficient of Variation 16.1 % (11.5-14.5); RDW Standard Deviation 53.9 fL (36.4-46.3); Red Blood Count 4.36 M/uL (4.2-5.4); White Blood Count 13.47 K/uL (4.8-10.8)
[2019-05-28 06:42] LABS: Calcium 8.7 mg/dl (8.5-10.1); Creatinine Clr Calc Pharmacy 34.9 ml/min; Est GFR (African American) 54.5
[2019-05-28] MEDS: ALBUT/IPRATROP 3MG/0.5MG NEB 3 ML VIAL NEB SCH ×4 (07:34→19:02)
[2019-05-28] MEDS: PANTOprazole 40 MG TAB PO SCH (08:51)
[2019-05-28] MEDS: ASPIRIN 81 MG ECTAB PO SCH (08:51)
[2019-05-28] MEDS: FAMOTIDINE 20 MG TAB PO SCH ×2 (08:51→21:05)
[2019-05-28] MEDS: AZITHROMYCIN 250 MG TAB PO SCH (08:51)
[2019-05-28] MEDS: guaiFENesin 600 MG TABCR PO SCH ×2 (08:52→21:07)
[2019-05-28] MEDS: predniSONE 20 MG TAB PO SCH (08:52)
[2019-05-28] MEDS: carvediloL 3.125 MG TAB PO SCH ×2 (08:52→16:01)
[2019-05-28] MEDS: CEROVITE ADV FORMULA TAB PO SCH (08:53)
[2019-05-28] MEDS: POTASSIUM CHLORIDE 20 MEQ TABCR PO SCH ×2 (08:53→21:05)
[2019-05-28] MEDS: SUCRALFATE 1 GM TAB PO SCH ×2 (08:53→21:06)
[2019-05-28] MEDS: ESCITALOPRAM OXALATE 10 MG TAB PO SCH (08:53)
[2019-05-28] MEDS: HEPARIN SOD 5,000 UNIT/0.5 ML VIAL SQ SCH ×2 (08:54→21:04)
[2019-05-28] MEDS: BUDESONIDE/FORMOTEROL FUMARATE 80/4.5 60 PUFFS/INHALER INH SCH ×2 (08:54→21:04)
[2019-05-28] MEDS: NYSTATIN POWDER 15GM BTL EXT SCH ×3 (08:54→21:03)
[2019-05-28] MEDS: CHOLECALCIFEROL 1,000 UNITS 25 MCG TAB PO SCH (16:01)
--- NOTE | 2019-05-28 17:43 | Hospitalist Progress Note ---
Date of Service May 28, 2019 Assessment & Plan (1) Cough: CXRs on 05/24 and 05/26 showed clear lungs. She has wheezing on exam. CT chest on 05/27 was normal. - Continue DuoNebs standing and PRN - Started prednisone 40 mg PO daily on 05/25 - Added azithromycin, Mucinex, and increased nebs on 05/26 for continued shortness of breath and cough - Unable to provide sputum culture - Continue Breo Ellipta 1 inhalation daily. - PRN O2 - Discussed with pulm on 05/28 - Will start Flonase for post-nasal drip. (2) CHF (congestive heart failure): Initially thought shortness of breath to be due to CHF; however, not the case. Echo on 05/25/19 showed EF 60-65%; mild LVH. At this point, do NOT think CHF is playing a role. - Stopped Lasix on 05/26 - Continue beta-willy, ACEi, ASA (3) Acute respiratory failure: Procalcitonin negative, chest x-ray and CT chest were negative for pneumonia. Less likely bacterial infection. - Continue supportive treatment as above (4) Leukocytosis: Elevated leukocytosis to 16,000. Has had other highs in this range. - Monitor for focal infection. Now on steroids which will compound the issue. - None seen at this time. 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 every morning, - Continue lorazepam 0.5 mg p.o. daily as needed. (6) GERD (gastroesophageal reflux disease): Continue pantoprazole 40 mg p.o. every morning, continue sucralfate 1 mg p.o. twice daily for gastritis. (7) DVT prophylaxis: Heparin 5000 units SQ Q12h Subjective Feels she is slowly improving. Less cough today. Reports no fevers/chills, chest pain, shortness of breath, abdominal pain, nausea, or vomiting. Physical Exam Constitutional: WD/WN, vitals as above + frail appearing; no acute distress Eyes: EOM intact bilaterally; no conjunctival abnormality ENMT: external ear and nose normal, oropharynx normal Neck: trachea midline, no thyromegaly normal visual inspection Respiratory: normal respiratory effort, lungs clear to auscultation + cough; no respiratory distress and no labored breathing Auscultation: + wheezes Cardiovascular: RRR, no murmur, no edema Gastrointestinal (Abdomen): Inspection/Auscultation: abdomen normal to inspection; abdomen not distended Musculoskeletal: no cyanosis or clubbing, extremities motor strength 5/5 Skin: no rashes, warm and dry Neurologic: moves all extremities and awake Psychiatric: Orientation: alert, oriented to person and cooperative Results & Data Vital Signs (Past 12 Hours) Vital Signs Temp Pulse Resp BP BP Pulse Ox 05/28/19 15:16 69 18 97 05/28/19 14:42 36.7 C 62 18 145/84 H 95 05/28/19 11:47 61 18 97 05/28/19 09:21 173/96 H 05/28/19 07:41 36.7 C 72 18 181/83 H 97 05/28/19 07:37 69 18 97 PG Care Time/CCT Total # of Minutes Spent Total Time Spent with Patient: Total time spent is greater than 50% in coordination of care (as documented) at patient's floor/unit and/or counseling patient: (1) CHF (congestive heart failure) Heart failure chronicity: acute Heart failure type: unspecified Qualified Code(s): I50.9 - Heart failure, unspecified
[2019-05-28] MEDS: FLUTICASONE PROPIONATE NA SPR 16 GM BTL SCH (21:04)
[2019-05-28] MEDS: TRAVOPROST Z 0.004% OPH SOLN 2.5 ML BTL OPB SCH (21:04)
[2019-05-28] MEDS: LOSARTAN POTASSIUM 25 MG TAB PO SCH (21:06)
[2019-05-29] MEDS: ALBUT/IPRATROP 3MG/0.5MG NEB 3 ML VIAL NEB SCH ×4 (07:53→19:17)
[2019-05-29] MEDS: BUDESONIDE/FORMOTEROL FUMARATE 80/4.5 60 PUFFS/INHALER INH SCH ×2 (10:12→20:52)
[2019-05-29] MEDS: guaiFENesin 600 MG TABCR PO SCH ×2 (10:41→20:50)
[2019-05-29] MEDS: predniSONE 20 MG TAB PO SCH (10:41)
[2019-05-29] MEDS: CEROVITE ADV FORMULA TAB PO SCH (10:42)
[2019-05-29] MEDS: AZITHROMYCIN 250 MG TAB PO SCH (10:42)
[2019-05-29] MEDS: ESCITALOPRAM OXALATE 10 MG TAB PO SCH (10:42)
[2019-05-29] MEDS: carvediloL 3.125 MG TAB PO SCH ×2 (10:43→16:26)
[2019-05-29] MEDS: ASPIRIN 81 MG ECTAB PO SCH (10:43)
[2019-05-29] MEDS: PANTOprazole 40 MG TAB PO SCH (10:43)
[2019-05-29] MEDS: POTASSIUM CHLORIDE 20 MEQ TABCR PO SCH (10:44)
[2019-05-29] MEDS: FAMOTIDINE 20 MG TAB PO SCH ×2 (10:44→20:52)
[2019-05-29] MEDS: SUCRALFATE 1 GM TAB PO SCH ×2 (10:44→20:51)
[2019-05-29] MEDS: FLUTICASONE PROPIONATE NA SPR 16 GM BTL SCH ×2 (10:46→20:53)
[2019-05-29] MEDS: HEPARIN SOD 5,000 UNIT/0.5 ML VIAL SQ SCH ×2 (11:00→20:53)
[2019-05-29] MEDS: NYSTATIN POWDER 15GM BTL EXT SCH ×3 (11:00→20:53)
--- NOTE | 2019-05-29 11:20 | Hospitalist Progress Note ---
Date of Service May 29, 2019 Assessment & Plan (1) Cough: CXRs on 05/24 and 05/26 showed clear lungs. She has wheezing on exam. CT chest on 05/27 was normal. - Continue DuoNebs standing and PRN - Started prednisone 40 mg PO daily on 05/25 - Added azithromycin, Mucinex, and increased nebs on 05/26 for continued shortness of breath and cough - Unable to provide sputum culture - Continue Breo Ellipta 1 inhalation daily. - PRN O2 - Discussed with pulm on 05/28 - Will start Flonase for post-nasal drip. Improving today, so the multifactorial approach seems to be working. - Video swallow study on 05/31 at 11:30 for possible aspiration. (2) Thrombocythemia: Platelets consistently high over all our values. No known work-up, though patient's dementia limits her ability to report much to me about this issue. - Peripheral smear (3) CHF (congestive heart failure): Initially thought shortness of breath to be due to CHF; however, not the case. Echo on 05/25/19 showed EF 60-65%; mild LVH. At this point, do NOT think CHF is playing a role. - Stopped Lasix on 05/26 - Continue beta-willy, ACEi, ASA (4) Acute respiratory failure: Procalcitonin negative, chest x-ray and CT chest were negative for pneumonia. Less likely bacterial infection. - Continue supportive treatment as above (5) Leukocytosis: Elevated leukocytosis to 16,000. Has had other highs in this range. - Monitor for focal infection. Now on steroids which will compound the issue. - No focal infection seen at this time. WBC coming down. (6) Depression due to dementia: - Continue escitalopram 10 mg p.o. every morning, - Continue lorazepam 0.5 mg p.o. daily as needed. (7) GERD (gastroesophageal reflux disease): Continue pantoprazole 40 mg p.o. every morning, continue sucralfate 1 mg p.o. twice daily for gastritis. (8) DVT prophylaxis: Heparin 5000 units SQ Q12h Subjective Improved cough and wheezing today. No major events overnight. Reports no fevers/chills, chest pain, shortness of breath, abdominal pain, nausea, or vomiting. Physical Exam Constitutional: WD/WN, vitals as above + frail appearing; no acute distress Eyes: EOM intact bilaterally; no conjunctival abnormality ENMT: external ear and nose normal, oropharynx normal Neck: trachea midline, no thyromegaly normal visual inspection Respiratory: normal respiratory effort, lungs clear to auscultation + cough; no respiratory distress and no labored breathing Auscultation: + wheezes Cardiovascular: RRR, no murmur, no edema Gastrointestinal (Abdomen): Inspection/Auscultation: abdomen normal to inspection; abdomen not distended Musculoskeletal: no cyanosis or clubbing, extremities motor strength 5/5 Skin: no rashes, warm and dry Neurologic: moves all extremities and awake Psychiatric: Orientation: alert, oriented to person and cooperative Results & Data Vital Signs (Past 12 Hours) Vital Signs Temp Pulse Resp BP BP Pulse Ox 05/29/19 07:53 67 16 88 L 05/29/19 07:21 36.6 C 74 18 188/102 H 189/97 H 90 PG Care Time/CCT Total # of Minutes Spent Total Time Spent with Patient: Total time spent is greater than 50% in co ordination of care (as documented) at patient's floor/unit and/or counseling patient: (1) CHF (congestive heart failure) Heart failure chronicity: acute Heart failure type: unspecified Qualified Code(s): I50.9 - Heart failure, unspecified
[2019-05-29] MEDS: CHOLECALCIFEROL 1,000 UNITS 25 MCG TAB PO SCH (16:26)
[2019-05-29] MEDS: LOSARTAN POTASSIUM 25 MG TAB PO SCH (20:51)
[2019-05-29] MEDS: TRAVOPROST Z 0.004% OPH SOLN 2.5 ML BTL OPB SCH (20:53)
[2019-05-30 06:00] LABS: Basophils # (auto) 0.04 K/uL (0-0.2); Basophils % (auto) 0.2 %; Eosinophils # (auto) 0.06 K/uL (0-0.5); Eosinophils % (auto) 0.3 %; Hematocrit (blood only) 39.4 % (37-47); Hemoglobin 12.7 g/dL (12.0-16.0); Immature Granulocytes # (auto) 0.55 K/uL (0.00-0.02); Lymphocytes # (auto) 2.08 K/uL (1.2-3.4); Lymphocytes % (auto) 11.3 %; Mean Corpuscular Hemoglobin 29.1 pg (25-34); Mean Corpuscular Hgb Conc 32.2 g/dL (32-36); Mean Corpuscular Volume 90.4 fL (80-100); Mean Platelet Volume 10.7 fL (7.4-10.4); Monocytes # (auto) 1.85 K/uL (0.11-0.59); Monocytes % (auto) 10.1 %; Neutrophils # (auto) 13.75 K/uL (1.4-6.5); Neutrophils % (auto) 75.1 %; Platelet Count 775 K/uL (130-400); RDW Standard Deviation 51.8 fL (36.4-46.3); Red Blood Count 4.36 M/uL (4.2-5.4); White Blood Count 18.33 K/uL (4.8-10.8)
[2019-05-30 06:29] LABS: BUN Creatinine Ratio 24.4 (10-20); Calcium 8.8 mg/dl (8.5-10.1); Creatinine Clr Calc Pharmacy 39.6 ml/min; Est GFR (Non-African American) 55.2; Potassium 4.4 mmol/L (3.5-5.1)
[2019-05-30] MEDS: ALBUT/IPRATROP 3MG/0.5MG NEB 3 ML VIAL NEB SCH ×4 (07:38→19:21)
[2019-05-30] MEDS: FLUTICASONE PROPIONATE NA SPR 16 GM BTL SCH ×2 (07:47→20:45)
[2019-05-30] MEDS: BUDESONIDE/FORMOTEROL FUMARATE 80/4.5 60 PUFFS/INHALER INH SCH ×2 (07:47→20:45)
[2019-05-30] MEDS: ASPIRIN 81 MG ECTAB PO SCH (07:48)
[2019-05-30] MEDS: FAMOTIDINE 20 MG TAB PO SCH ×2 (07:48→20:45)
[2019-05-30] MEDS: HEPARIN SOD 5,000 UNIT/0.5 ML VIAL SQ SCH ×2 (07:48→20:45)
[2019-05-30] MEDS: AZITHROMYCIN 250 MG TAB PO SCH (07:49)
[2019-05-30] MEDS: carvediloL 3.125 MG TAB PO SCH ×2 (07:49→16:01)
[2019-05-30] MEDS: SUCRALFATE 1 GM TAB PO SCH ×2 (07:49→20:44)
[2019-05-30] MEDS: PANTOprazole 40 MG TAB PO SCH (07:49)
[2019-05-30] MEDS: predniSONE 20 MG TAB PO SCH (07:50)
[2019-05-30] MEDS: CEROVITE ADV FORMULA TAB PO SCH (07:50)
[2019-05-30] MEDS: ESCITALOPRAM OXALATE 10 MG TAB PO SCH (07:50)
[2019-05-30] MEDS: guaiFENesin 600 MG TABCR PO SCH ×2 (07:50→20:45)
[2019-05-30] MEDS: NYSTATIN POWDER 15GM BTL EXT SCH ×3 (07:52→20:45)
--- NOTE | 2019-05-30 12:09 | Hospitalist Progress Note ---
Date of Service May 30, 2019 Assessment & Plan (1) Cough: CXRs on 05/24 and 05/26 showed clear lungs. She has wheezing on exam. CT chest on 05/27 was normal. - Continue DuoNebs standing and PRN - Started prednisone 40 mg PO daily on 05/25 - Added azithromycin, Mucinex, and increased nebs on 05/26 for continued shortness of breath and cough - Unable to provide sputum culture - Continue Breo Ellipta 1 inhalation daily. - PRN O2 - Discussed with pulm on 05/28 - Started Flonase for post-nasal drip. - Improving over the last few days, so the multifactorial approach seems to be working. Today she has no wheezes, but Blu felt that she was coughing more with food and drink. - Video swallow study on 05/31 at 11:30 for possible aspiration. (2) Thrombocythemia: Platelets consistently high over all our values. No known work-up, though patient's dementia limits her ability to report much to me about this issue. - Peripheral smear pending - Already on ASA 81mg - Oncology consult (3) Leukocytosis: Elevated leukocytosis up to 18,000. Has had other highs in this range. - Monitor for focal infection. Now on steroids which will compound the issue. No focal infection seen at this time. - Oncology consult as above (4) CHF (congestive heart failure): Initially thought shortness of breath to be due to CHF; however, not the case. Echo on 05/25/19 showed EF 60-65%; mild LVH. At this point, do NOT think CHF is playing a role. - Stopped Lasix on 05/26 - Continue beta-willy, ACEi, ASA (5) Acute respiratory failure: Procalcitonin negative, chest x-ray and CT chest were negative for pneumonia. Less likely bacterial infection. - Continue supportive treatment as above (6) Depression due to dementia: RNs report she is quiet, but no overt indication of depression. Family does want to get her home, and do not want to keep bringing her back. - Continue escitalopram 10 mg p.o. every morning, - Continue lorazepam 0.5 mg p.o. daily as needed. - Palliative care consult (7) GERD (gastroesophageal reflux disease): Continue pantoprazole 40 mg p.o. every morning, continue sucralfate 1 mg p.o. twice daily for gastritis. (8) DVT prophylaxis: Heparin 5000 units SQ Q12h Subjective More cough after meal and drinking per nurse. Today she denies any wheezing or shortness of breath. Does report the cough. Reports no fevers/chills, chest pain, shortness of breath, abdominal pain, nausea, or vomiting. Physical Exam Constitutional: WD/WN, vitals as above + frail appearing; no acute distress Eyes: EOM intact bilaterally; no conjunctival abnormality ENMT: external ear and nose normal, oropharynx normal Neck: trachea midline, no thyromegaly normal visual inspection Respiratory: + cough; no respiratory distress and no labored breathing Auscultation: + rhonchi Cardiovascular: RRR, no murmur, no edema Gastrointestinal (Abdomen): Inspection/Auscultation: abdomen normal to inspection; abdomen not distended Musculoskeletal: no cyanosis or clubbing, extremities motor strength 5/5 Skin: no rashes, warm and dry Neurologic: moves all extremities and awake Psychiatric: Orientation: alert, oriented to person and cooperative Results & Data Vital Signs (Past 12 Hours) Vital Signs Temp Pulse Pulse Resp BP Pulse Ox 05/30/19 11:32 66 20 95 05/30/19 10:15 67 18 157/83 H 05/30/19 07:38 69 20 92 05/30/19 07:14 36.6 C 88 18 190/97 H 92 PG Care Time/CCT Total # of Minutes Spent Total Time Spent with Patient: Total time spent is greater than 50% in coordination of care (as documented) at patient's floor/unit and/or counseling patient: (1) CHF (congestive heart failure) Heart failure chronicity: acute Heart failure type: unspecified Qualified Code(s): I50.9 - Heart failure, unspecified
--- NOTE | 2019-05-30 13:12 | Oncology Consultation ---
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 She has also developed a leukocytosis with a neutrophilic predominance, though she also has some immature granulocytes. This picture is suggestive of a myeloproliferative disorder, such as ET. She also has had some recurring GI bleeds in the past. GI bleeding can be seen in the context of essential thrombocytosis, though more commonly in patients with platelet counts >1 million, due to platelet-type von Willebrand disease. I would suggest checking her iron levels, as mild iron deficiency can cause thrombocytosis. I would also consider sending genetic testing for JAK2 V617F, calreticulin, and MPL, the three most commonly implicated mutations in ET. She is considering hospice care. If she goes in that direction, this testing is somewhat less critical. I would still maintain her on a baby aspirin, as it can help prevent ET-related strokes and MIs. If she opts for testing, I could see her in the office to follow up on the results. Present on Admission?: Yes History of Present Illness Reason for Consultation: Thrombocytosis Leukocytosis Attending Physician: Brendon Lewis MD History of Present Illness Ms. Addison is an 89 year old woman with a history of dementia, CHF, COPD, and GI bleeding. She was admitted early last week with worsening shortness of breath, cough, and hypoxia. She has been treated with a combination of diuretics, steroids, and antibiotics and her breathing has improved. I was consulted to discuss her CBC, which revealed a mild neutrophilia and moderate thrombocytosis. The thrombocytosis is actually chronic. She has had platelets above 450 since as far back as 2007. They were mostly in the 500s until about 2012 and have been more in the high 500-low 600K range since then. Her WBCs have been elevated consistently since 2016, with a neutrophilic predominance, though she has consistently had a slight increase in immature granulocytes. She is demented. While she answers some direct questions appropriately, her recall is poor. She denied any bleeding currently, though she's had recurrent GI bleeds over the last few years. She reports a headache, which her son tells me is not something she is normally prone to. She denies any other new or worsening pain. Allergies Allergy/AdvReac Type Severity Reaction Status Date / Time clindamycin Allergy Severe SHORTNESS Verified 05/24/19 17:08 OF BREATH Cephalosporins Allergy Intermediate RASH-UPSET Verified 05/24/19 17:09 STOMACH Penicillins Allergy Intermediate RASH-UPSET Verified 05/24/19 17:09 STOMACH sulfamethoxazole AdvReac Intermediate Vomiting Verified 05/24/19 17:09 [From Bactrim] trimethoprim [From Bactrim] AdvReac Intermediate Vomiting Verified 05/24/19 17:09 aspirin AdvReac Mild burning is Verified 05/24/19 17:09 stomach Home Medications Home Medications Medication Instructions Recorded Confirmed Type PreserVision AREDS 1 tab PO QAM 07/19/18 05/24/19 History Travatan Z 1 drp OPB HS 07/19/18 05/24/19 History aspirin 81 mg PO QAM 07/19/18 05/24/19 History hydrochlorothiazide 25 mg tablet 25 mg PO QAM #30 tab 11/22/18 05/24/19 Rx carvedilol [Coreg] 3.125 mg PO BIDM 01/14/19 05/24/19 History lorazepam 0.5 mg tablet 0.5 mg PO DAILY PRN #30 tab 01/27/19 05/24/19 Rx losartan 50 mg tablet 25 mg PO HS #15 tab 02/10/19 05/24/19 Rx cholecalciferol (vitamin D3) 25 1,000 unit PO DAILY@1700 #90 cap 02/22/19 05/24/19 Rx mcg (1,000 unit) capsule furosemide 20 mg tablet 20 mg PO 3XWK tab 03/10/19 05/24/19 History escitalopram oxalate 10 mg PO QAM 03/25/19 05/24/19 History pantoprazole 40 mg PO QAM 03/25/19 05/24/19 History sucralfate 1 g PO BID 03/25/19 05/24/19 History famotidine 20 mg tablet 20 mg PO BID #60 tab 05/20/19 05/24/19 Rx Breo Ellipta 1 inh INHALATION DAILY 05/24/19 05/24/19 History benzonatate [Tessalon Perles] 100 mg PO TID PRN 5 Days #15 cap 05/24/19 Rx benzonatate [Tessalon Perles] 100 mg PO TID PRN 5 Days #15 cap 05/24/19 Rx nystatin 1 applic TOPICAL UD 05/24/19 05/24/19 History Patient History Medical History Acute upper GI bleed (Acute) Anxiety (Acute) Aphasia (Acute 04/01/13) ASCVD (arteriosclerotic cardiovascular disease) Atrial premature complexes Burning with urination (Acute) CAD (coronary artery disease) CKD (chronic kidney disease) Coffee ground vomiting (Acute) Delirium Dementia DVT prophylaxis DVT prophylaxis Esophagitis (Acute) GERD (gastroesophageal reflux disease) GERD (gastroesophageal reflux disease) Glaucoma Hearing loss (Chronic) Hyperlipemia Hypertension (Acute 04/01/13) Leukocytosis Osteoarthritis Right inguinal hernia (Acute) SOB (shortness of breath) (Acute) TIA (transient ischemic attack) (Acute) Surgical History History of tonsillectomy and adenoidectomy Family History Mother Breast cancer Myocardial infarction Father Myocardial infarction Social History Preferred Language: Turkmen Communication Ability: Effective Hearing Ability: Use of Hearing Aid News Production Assistant Required: No Beliefs That Will Affect Care: None marital status: / Current Living Situation: Retirement Current Living Situation Comment: [employer] current occupational status: retired Other Information That Helps Us Care for You: No Feels Safe at Home: Yes Safety Concerns: Feels Safe At This Time Smoking Status: Never smoker Second Hand Exposure: No ; Hx Alcohol Use: No Hx Substance Use: No Review of Systems Review of Systems: ROS was limited by her dementia. See HPI for pertinent positives and negatives. Physical Exam Constitutional: + frail appearing and comfortable; no acute distress ENMT: external ear and nose normal, oropharynx normal Respiratory: normal respiratory effort Auscultation: + wheezes (in all lozano) Gastrointestinal (Abdomen): Inspection/Auscultation: normal bowel sounds Percussion/Palpation: abdomen soft; abdomen nontender Lymphatic: no cervical lymphadenopathy and no subclavicular lymphadenopathy Results & Data Vital Signs (Past 12 Hours) Vital Signs Temp Pulse Pulse Resp BP Pulse Ox 05/30/19 11:32 66 20 95 01/12/20 10:15 67 18 157/83 H 05/30/19 07:38 69 20 92 05/30/19 07:14 36.6 C 88 18 190/97 H 92 Laboratory Results Abnormal lab results 05/30/19 05/30/19 Range/Units 05:24 05:24 WBC 18.33 H (4.8-10.8) K/uL RDW Std Deviation 51.8 H (36.4-46.3) fL RDW Coeff of Mandi 16.0 H (11.5-14.5) % Plt Count 775 H (130-400) K/uL MPV 10.7 H (7.4-10.4) fL Immature Gran # (Auto) 0.55 H (0.00-0.02) K/uL Neut # (Auto) 13.75 H (1.4-6.5) K/uL Kimble # (Auto) 1.85 H (0.11-0.59) K/uL BUN 23 H (7-18) mg/dl BUN/Creatinine Ratio 24.4 H (10-20)
[2019-05-30] MEDS: CHOLECALCIFEROL 1,000 UNITS 25 MCG TAB PO SCH (16:01)
[2019-05-30] MEDS: LOSARTAN POTASSIUM 25 MG TAB PO SCH (20:45)
[2019-05-30] MEDS: TRAVOPROST Z 0.004% OPH SOLN 2.5 ML BTL OPB SCH (20:46)
[2019-05-31 06:24] LABS: Hematocrit (blood only) 40.1 % (37-47); Hemoglobin 12.9 g/dL (12.0-16.0); Mean Corpuscular Hgb Conc 32.2 g/dL (32-36); Mean Corpuscular Volume 90.1 fL (80-100); Mean Platelet Volume 10.6 fL (7.4-10.4); Platelet Count 842 K/uL (130-400); RDW Coefficient of Variation 16.3 % (11.5-14.5); RDW Standard Deviation 52.8 fL (36.4-46.3); Red Blood Count 4.45 M/uL (4.2-5.4); White Blood Count 20.19 K/uL (4.8-10.8)
[2019-05-31 07:01] LABS: BUN Creatinine Ratio 24.2 (10-20); Calcium 8.8 mg/dl (8.5-10.1); Creatinine Clr Calc Pharmacy 32.2 ml/min; Est GFR (African American) 49.9; Est GFR (Non-African American) 43.1; Potassium 4.4 mmol/L (3.5-5.1)
[2019-05-31] MEDS: ALBUT/IPRATROP 3MG/0.5MG NEB 3 ML VIAL NEB SCH ×4 (07:10→19:46)
[2019-05-31] MEDS: carvediloL 3.125 MG TAB PO SCH ×2 (08:59→17:26)
[2019-05-31] MEDS: SUCRALFATE 1 GM TAB PO SCH ×2 (08:59→20:11)
[2019-05-31] MEDS: ASPIRIN 81 MG ECTAB PO SCH (08:59)
[2019-05-31] MEDS: FLUTICASONE PROPIONATE NA SPR 16 GM BTL SCH ×2 (08:59→20:11)
[2019-05-31] MEDS: ESCITALOPRAM OXALATE 10 MG TAB PO SCH (09:00)
[2019-05-31] MEDS: guaiFENesin 600 MG TABCR PO SCH ×2 (09:00→20:11)
[2019-05-31] MEDS: CEROVITE ADV FORMULA TAB PO SCH (09:00)
[2019-05-31] MEDS: NYSTATIN POWDER 15GM BTL EXT SCH ×3 (09:00→20:11)
[2019-05-31] MEDS: FAMOTIDINE 20 MG TAB PO SCH ×2 (09:01→20:11)
[2019-05-31] MEDS: PANTOprazole 40 MG TAB PO SCH (09:01)
[2019-05-31] MEDS: BUDESONIDE/FORMOTEROL FUMARATE 80/4.5 60 PUFFS/INHALER INH SCH ×2 (09:01→20:11)
[2019-05-31] MEDS: HEPARIN SOD 5,000 UNIT/0.5 ML VIAL SQ SCH ×2 (09:02→20:10)
--- NOTE | 2019-05-31 11:28 | Palliative Care Consultation ---
Date of Consultation May 31, 2019 Assessment & Plan (1) Palliative care encounter: This is an 89 year old female who presented to the [facility] from [facility] with hypoxia, wheezing and a cough. The patient has a significant PMH that includes CHF, GERD, HTN, depression, dementia, OA and thrombocytosis. The patient was worked up for pneumonia, two CXR and a chest CT were negative. She was treated with steroids, nebulizers and antibiotics. An ECHO was performed and her EF is 60-65%. Hematology/Oncology was consulted and discussed that she has worsening thrombocytosis since 2007 with a questionable myeloproliferative disorder. Genetic and laboratory testing was recommended. Today, the patient underwent a video swallow to evaluate for possible aspiration, which revealed mild esophageal dysmotility, but no apparent aspiration. The patient has a daughter, Trang, and a son, Antonio. The patient made comments regarding being ready for Hospice. Palliative Care was consulted to discuss goals of care. -I met with Nina in room 457-1. No family was at the bedside. -She was sitting upright in her bed in no apparent distress. The patient was currently receiving a nebulizer treatment. -The patient was able to answers questions appropriately and have a meaningful conversation; however, she was unable to describe what brought her into the hospital and she could not tell me where she lived. She paused for a moment trying to remember her adult children's names, Trang and Antonio. -She stated that she was getting anxious being in the hospital and said "who is that next to me anyway", referring to her roomate. -It appears as though the patient is showing improvement from admission and the video swallow that was performed today was negative. -I reached out to Trang at [phone] to discuss Hospice and goals of care; I left a VM. -The family did proceed to come to the hospital and met with jese arshad. Per the review of their note, the family would like to continue aggressive treatment. -Plan for possible discharge tomorrow back to her personal skilled nursing in [place]. Patient is a DNR/DNI. -I will attempt to reach out to the patients daugher tomorrow to hopefully complete a POLST form prior to discharge. -Palliative will follow. (2) Acute respiratory failure: (3) Depression due to dementia: (4) SOB (shortness of breath): (5) Cough: (6) Wheezing: (7) Thrombocythemia: History of Present Illness Reason for Consultation: goals of care Requesting Physician: Dr. Lewis Attending Physician: Esther Barnett MD History of Present Illness This is an 89 year old female who presented to the [facility] from [facility] with hypoxia, wheezing and a cough. The patient has a significant PMH that includes CHF, GERD, HTN, depression, dementia, OA and thrombocytosis. The patient was worked up for pneumonia, two CXR and a chest CT were negative. She was treated with steroids, nebulizers and antibiotics. An ECHO was performed and her EF is 60-65%. Hematology/Oncology was consulted and discussed that she has worsening thrombocytosis since 2007 with a questionable myeloproliferative disorder. Genetic and laboratory testing was recommended. Today, the patient underwent a video swallow to evaluate for possible aspiration, which revealed mild esophageal dysmotility, but no apparent aspiration. The patient has a daughter, Trang, and a son, Antonio. The patient made comments regarding being ready for Hospice. Palliative Care was consulted to discuss goals of care. Please see A/P for further details. Thank you kindly for involving the palliative care team with this patient. Allergies Allergy/AdvReac Type Severity Reaction Status Date / Time clindamycin Allergy Severe SHORTNESS Verified 05/24/19 17:08 OF BREATH Cephalosporins Allergy Intermediate RASH-UPSET Verified 05/24/19 17:09 STOMACH Penicillins Allergy Intermediate RASH-UPSET Verified 05/24/19 17:09 STOMACH sulfamethoxazole AdvReac Intermediate Vomiting Verified 05/24/19 17:09 [From Bactrim] trimethoprim [From Bactrim] AdvReac Intermediate Vomiting Verified 05/24/19 17:09 aspirin AdvReac Mild burning is Verified 05/24/19 17:09 stomach Home Medications Home Medications Medication Instructions Recorded Confirmed Type PreserVision AREDS 1 tab PO QAM 07/19/18 05/24/19 History Travatan Z 1 drp OPB HS 07/19/18 05/24/19 History aspirin 81 mg PO QAM 07/19/18 05/24/19 History hydrochlorothiazide 25 mg tablet 25 mg PO QAM #30 tab 11/22/18 05/24/19 Rx carvedilol [Coreg] 3.125 mg PO BIDM 01/14/19 05/24/19 History lorazepam 0.5 mg tablet 0.5 mg PO DAILY PRN #30 tab 01/27/19 05/24/19 Rx losartan 50 mg tablet 25 mg PO HS #15 tab 02/10/19 05/24/19 Rx cholecalciferol (vitamin D3) 25 1,000 unit PO DAILY@1700 #90 cap 02/22/19 05/24/19 Rx mcg (1,000 unit) capsule furosemide 20 mg tablet 20 mg PO 3XWK tab 03/10/19 05/24/19 History escitalopram oxalate 10 mg PO QAM 03/25/19 05/24/19 History pantoprazole 40 mg PO QAM 03/25/19 05/24/19 History sucralfate 1 g PO BID 03/25/19 05/24/19 History famotidine 20 mg tablet 20 mg PO BID #60 tab 05/20/19 05/24/19 Rx Breo Ellipta 1 inh INHALATION DAILY 05/24/19 05/24/19 History benzonatate [Tessalon Perles] 100 mg PO TID PRN 5 Days #15 cap 05/24/19 Rx benzonatate [Tessalon Perles] 100 mg PO TID PRN 5 Days #15 cap 05/24/19 Rx nystatin 1 applic TOPICAL UD 05/24/19 05/24/19 History Patient History Medical History (Updated 05/31/19 @ 11:25 by JAMAICA Ramirez) Acute upper GI bleed (Acute) Anxiety (Acute) Aphasia (Acute 04/01/13) ASCVD (arteriosclerotic cardiovascular disease) Atrial premature complexes Burning with urination (Acute) CAD (coronary artery disease) CKD (chronic kidney disease) Coffee ground vomiting (Acute) Delirium Dementia DVT prophylaxis DVT prophylaxis Esophagitis (Acute) GERD (gastroesophageal reflux disease) GERD (gastroesophageal reflux disease) Glaucoma Hearing loss (Chronic) Hyperlipemia Hypertension (Acute 04/01/13) Leukocytosis Osteoarthritis Palliative care encounter Right inguinal hernia (Acute) SOB (shortness of breath) (Acute) TIA (transient ischemic attack) (Acute) Surgical History History of tonsillectomy and adenoidectomy Family History Mother Breast cancer Myocardial infarction Father Myocardial infarction Social History Preferred Language: Amharic Communication Ability: Effective Hearing Ability: Use of Hearing Aid Bedspread Seamer Required: No Beliefs That Will Affect Care: None marital status: / Current Living Situation: Custodial Current Living Situation Comment: [place] current occupational status: retired Other Information That Helps Us Care for You: No Feels Safe at Home: Yes Safety Concerns: Feels Safe At This Time Smoking Status: Never smoker Second Hand Exposure: No ; Hx Alcohol Use: No Hx Substance Use: No Review of Systems Review of Systems: General: (+) tiredness (+) lethargy CV: (-) chest pain, palpitations Resp: (+) cough, (+) SOB, (+) wheezing GI: Pt states appetite fluctuates. (-) N/V/D : (-) dysuria Physical Exam Constitutional: + ill appearing, + frail appearing, cooperative and + lethargic Respiratory: + cough and symmetric chest movement Auscultation: + wheezes Cardiovascular: Rate/Rhythm: regular rate and regular rhythm Heart Sounds: no murmur Extremities: normal capillary refill; no edema Gastrointestinal (Abdomen): normal bowel sounds, soft, nontender, no hepatosplenomegaly Skin: no rashes, warm and dry Psychiatric: Orientation: alert and oriented x 3 Insight: + limited insight Judgement: + limited judgement Results & Data Vital Signs (Past 12 Hours) Vital Signs Temp Pulse Resp BP Pulse Ox 05/31/19 10:53 74 18 88 L 05/31/19 07:28 36.5 C 65 18 179/71 H 90 05/31/19 07:11 76 18 88 L 05/31/19 00:24 37 C 70 18 149/73 H 92 PG Care Time/CCT Total # of Minutes Spent Total Time Spent with Patient: Total time spent is greater than 50% in coordination of care (as documented) at patient's floor/unit and/or counseling patient: 70 Time Spent Midlevel Time spent: 70 minutes with > 50% of that time spent assessing the patient, discussing goals of care and attempting to reach family.
--- NOTE | 2019-05-31 13:07 | Fluoroscopy Report ---
FL video swallow CLINICAL HISTORY: 89 years-old Female presenting with r/o aspiration; repeated bronchitis. TECHNIQUE: Video fluoroscopic evaluation of swallowing was performed in the AP and lateral projection s in conjunction with speech pathology. The patient was administered various textures, including nect ar-thick and thin liquid barium, a barium coated wafer, and barium pudding. COMPARISON: None. FINDINGS: Limited evaluation of the esophagus appears structurally normal though there is ineffective secondary contractions with delayed clearance and intraesophageal reflux, suggesting mild dysmotility. Normal oral transit, including normal tongue-soft palate seal. Normal soft palate-superior constricto r muscle seal without evidence of nasopharyngeal regurgitation. Normal oral transport/propulsion of t he food bolus. Normal hyoid elevation and epiglottic deflection. No evidence of a significant pharyng eal bolus residual. None of the administered textures resulted in laryngeal penetration within the laryngeal vestibule. N one of the administered textures resulted in aspiration of barium contrast below the level of the peng e vocal folds. Fluoroscopy dosage (mGy): Not available. Fluoroscopy time: 2.2 minutes. Number or time of high level fluoroscopy (HLF), digital spot, or digital subtraction images: 0. IMPRESSION: 1. No aspiration identified. 2. Mild esophageal dysmotility. 3. Please see the speech pathologist report for detailed findings and recommendations. ACT 112: Negative or not required by law. Electronically signed by: Vin Kennedy M.D. 05/31/2019 1:06 PM
--- NOTE | 2019-05-31 14:21 | Hospitalist Progress Note ---
Date of Service May 31, 2019 Assessment & Plan (1) Cough: She has a h/o many years of second-hand smoke exposure Has a h/o frequent bronchitis episodes as per daughter. Has not had PFTs that family can recall or that can be found in the chart. CXRs on 05/24 and 05/[address] chest on 05/27 was normal. She has persistent wheezing on exam. - Continue DuoNebs standing and PRN - Started prednisone 40 mg PO daily on 05/25-continue/restart this today and do a longer, slower taper - completed a 5 day course of azithromycin -continue Mucinex - Unable to provide sputum culture - Continue Breo Ellipta 1 inhalation daily. - PRN O2 - Discussed with pulm on 05/28 - Started Flonase for post-nasal drip. - RN reported pt was coughing more with food and drink. - Video swallow study on 05/31 was normal-no aspiration Improved overall, still needing O2 and does not have this at home (2) Thrombocythemia: Platelets consistently high over all our values. No known work-up, though patient's dementia limits her ability to report much Heme/Onc consult appreciated--> thinks could be ET -check JAK2, MPL gene mutations. Also recommended calreticulin but I cannot find it in our ordering system -follow platelets--> into the 800s today (3) Leukocytosis: persistently elevated here likely secondary to previous infectious bronchitis and steroid use--> will get better with time -follow CBC (4) CHF (congestive heart failure): Initially thought shortness of breath to be due to CHF; however, not the case. Echo on 05/25/19 showed EF 60-65%; mild LVH. At this point, do NOT think CHF is playing a role. - Stopped Lasix on 05/26 - Continue beta-willy, losartan, ASA (5) Acute respiratory failure: Procalcitonin negative, chest x-ray and CT chest were negative for pneumonia. Had increased sputum production Has been treated with azothromycin x 5 days - Continue supportive treatment as above, steroids restarted, O2 -needs 2 step walk test prior to discharge (6) Depression due to dementia: RNs report she is quiet, but no overt indication of depression. Family does want to get her home, and do not want to keep bringing her back. - Continue escitalopram 10 mg p.o. every morning, - Continue lorazepam 0.5 mg p.o. daily as needed. - Palliative care consult (7) GERD (gastroesophageal reflux disease): Continue pantoprazole 40 mg p.o. every morning, continue sucralfate 1 mg p.o. twice daily for gastritis. (8) DVT prophylaxis: Heparin 5000 units SQ Q12h Dispo-remain overnight but if wheezing is improved by tomorrow, could go home with home health Needs home O2 most likely Subjective Pt reports cough and daughter and son at bedside think her cough is much i mproved. Pt denies any problems and really is non-contributory to the conversation. She is still dyspneic with minimal exertion as per RN. Son and daughter most concerned about her previous leg swelling and say that her legs are significantly improved since admission-they are happy with this and request visiting nursing to check on her frequently to keep a close eye on her to prevent a readmission. Review of Systems Review of Systems: Unobtainable due to cognitive status Physical Exam Constitutional: WD/WN, vitals as above (sitting in a chair at bedside) + obese Eyes: + anicteric sclerae ENMT: external ear and nose normal, oropharynx normal Neck: trachea midline, no thyromegaly Respiratory: normal respiratory effort; no labored breathing Auscultation: + rhonchi (scattered) and + wheezes (bilateral, diffuse); no rales Cardiovascular: Rate/Rhythm: regular rate and regular rhythm Extremities: + edema (trace pitting edema legs to md tibia bilat) Chest (Breasts): Chest: normal inspection of chest Gastrointestinal (Abdomen): normal bowel sounds, soft, nontender, no hepatosplenomegaly Musculoskeletal: Extremities: extremities normal to inspection; no cyanosis and no clubbing Skin: no rashes, warm and dry Neurologic: moves all extremities and awake; no focal motor deficits Psychiatric: Orientation: alert, oriented to person and cooperative Eye Contact: + fair eye contact Affect: + flat affect Lymphatic: no lymphedema Results & Data Vital Signs (Past 12 Hours) Vital Signs Temp Pulse Resp BP Pulse Ox 05/31/19 10:53 74 18 88 L 05/31/19 07:28 36.5 C 65 18 179/71 H 90 05/31/19 07:11 76 18 88 L Laboratory Results 05/31/19 05/31/19 05/29/19 Range/Units 06:03 06:03 11:40 WBC 20.19 H (4.8-10.8) K/uL RBC 4.45 (4.2-5.4) M/uL Hgb 12.9 (12.0-16.0) g/dL Hct 40.1 (37-47) % MCV 90.1 (80-100) fL MCH 29.0 (25-34) pg MCHC 32.2 (32-36) g/dL RDW Std Deviation 52.8 H (36.4-46.3) fL RDW Coeff of Mandi 16.3 H (11.5-14.5) % Plt Count 842 H (130-400) K/uL MPV 10.6 H (7.4-10.4) fL Peripher Smr Path Cons Sodium 138 (136-145) mmol/L Potassium 4.4 (3.5-5.1) mmol/L Chloride 104 (98-107) mmol/L Carbon Dioxide 30 (21-32) mmol/L Anion Gap 5.0 (3-11) BUN 27 H (7-18) mg/dl Creatinine 1.13 (0.6-1.2) mg/dl Est Cr Clr Drug Dosing 32.2 ml/min Est GFR ( Amer) 49.9 Est GFR (Non-Af Amer) 43.1 BUN/Creatinine Ratio 24.2 H (10-20) Glucose 98 (70-99) mg/dl Calcium 8.8 (8.5-10.1) mg/dl PG Care Time/CCT Total # of Minutes Spent Total Time Spent with Patient: Total time spent is greater than 50% in coordination of care (as documented) at patient's floor/unit and/or counseling patient: (1) CHF (congestive heart failure) Heart failure chronicity: acute Heart failure type: unspecified Qualified Code(s): I50.9 - Heart failure, unspecified
[2019-05-31] MEDS: predniSONE 20 MG TAB PO SCH (15:10)
[2019-05-31] MEDS: CHOLECALCIFEROL 1,000 UNITS 25 MCG TAB PO SCH (17:26)
[2019-05-31] MEDS: LOSARTAN POTASSIUM 25 MG TAB PO SCH (20:11)
[2019-05-31] MEDS: TRAVOPROST Z 0.004% OPH SOLN 2.5 ML BTL OPB SCH (20:12)
[2019-06-01 06:34] LABS: Hemoglobin 12.9 g/dL (12.0-16.0); Mean Corpuscular Hemoglobin 28.8 pg (25-34); Mean Corpuscular Hgb Conc 32.3 g/dL (32-36); Mean Corpuscular Volume 89.3 fL (80-100); Mean Platelet Volume 10.4 fL (7.4-10.4); Platelet Count 780 K/uL (130-400); RDW Coefficient of Variation 16.4 % (11.5-14.5); RDW Standard Deviation 52.6 fL (36.4-46.3); Red Blood Count 4.48 M/uL (4.2-5.4)
[2019-06-01 07:07] LABS: Alanine Aminotransferase 45 U/L (12-78); Albumin Level 2.8 gm/dl (3.4-5.0); Alkaline Phosphatase 71 U/L (45-117); Aspartate Aminotransferase 22 U/L (15-37); Bilirubin,Total 0.4 mg/dl (0.2-1); Blood Urea Nitrogen 28 mg/dl (7-18); Calcium 8.6 mg/dl (8.5-10.1); Carbon Dioxide 27 mmol/L (21-32); Chloride 102 mmol/L (98-107); Creatinine Clr Calc Pharmacy 31.1 ml/min; Est GFR (African American) 47.4; Est GFR (Non-African American) 40.9; Ferritin 41.2 ng/ml (8-388); Glucose 120 mg/dl (70-99); Potassium 4.3 mmol/L (3.5-5.1); Sodium 136 mmol/L (136-145); Total Protein 5.8 gm/dl (6.4-8.2)
[2019-06-01] MEDS: ALBUT/IPRATROP 3MG/0.5MG NEB 3 ML VIAL NEB SCH ×3 (07:09→15:03)
[2019-06-01 07:10] LABS: Bilirubin Direct < 0.1 mg/dl (0-0.2); Iron 39 mcg/dl (35-150); Total Iron Binding Capacity 268 mcg/dl (250-450); Transferrin 216 mg/dl (200-360); Transferrin Percent Saturation 13 % (15-50)
[2019-06-01 07:17] LABS: Basophils # (auto) 0.03 K/uL (0-0.2); Basophils % (auto) 0.2 %; Eosinophils # (auto) 0.17 K/uL (0-0.5); Eosinophils % (auto) 0.9 %; Immature Granulocytes # (auto) 1.17 K/uL (0.00-0.02); Lymphocytes # (auto) 2.45 K/uL (1.2-3.4); Lymphocytes % (auto) 12.6 %; Monocytes # (auto) 1.34 K/uL (0.11-0.59); Monocytes % (auto) 6.9 %; Neutrophils # (auto) 14.34 K/uL (1.4-6.5); Neutrophils % (auto) 73.4 %
[2019-06-01] MEDS: carvediloL 3.125 MG TAB PO SCH (07:53)
[2019-06-01] MEDS: SUCRALFATE 1 GM TAB PO SCH (07:53)
[2019-06-01] MEDS: ASPIRIN 81 MG ECTAB PO SCH (07:53)
[2019-06-01] MEDS: HEPARIN SOD 5,000 UNIT/0.5 ML VIAL SQ SCH (07:54)
[2019-06-01] MEDS: CEROVITE ADV FORMULA TAB PO SCH (07:54)
[2019-06-01] MEDS: ESCITALOPRAM OXALATE 10 MG TAB PO SCH (07:54)
[2019-06-01] MEDS: FLUTICASONE PROPIONATE NA SPR 16 GM BTL SCH (07:54)
[2019-06-01] MEDS: guaiFENesin 600 MG TABCR PO SCH (07:54)
[2019-06-01] MEDS: NYSTATIN POWDER 15GM BTL EXT SCH ×2 (07:54→13:11)
[2019-06-01] MEDS: FAMOTIDINE 20 MG TAB PO SCH (07:55)
[2019-06-01] MEDS: predniSONE 20 MG TAB PO SCH (07:55)
[2019-06-01] MEDS: BUDESONIDE/FORMOTEROL FUMARATE 80/4.5 60 PUFFS/INHALER INH SCH (07:56)
[2019-06-01] MEDS: PANTOprazole 40 MG TAB PO SCH (07:56)
--- NOTE | 2019-06-01 14:30 | Discharge Summary ---
Date of Service June 01, 2019 Admission HPI Per Admitting Provider Patient is a 89 years old female with past medical history of congestive heart failure, GERD, hypertension, depression due to dementia, osteoarthritis, who lives in a personal halfway at [place] and was brought by EMS to the emergency room with a complaint of respiratory failure with oxygenation with of 82% on room air and wheezing and coughing. Patient is poor historian and has severe dementia of Alzheimer type. Her 2 sisters are next to her bedside and they explained that this is patient's baseline. White blood cell count is 16.03, hemoglobin 12.8, hematocrit 39.7, platelets of 630, sodium 137, potassium 3.8, chloride 103, BUN 22, creatinine 1.38, glucose 124, calcium 8.8, AST 18, ALT 28, troponin 0 0.015, GFR 33.8, procalcitonin 0.05 -negative. Urine is negative but cloudy, negative for influenza A&B. Chest x-ray shows pulmonary vasculature is normal. Lungs are clear. Negative chest. Decision was made to admit patient to PCU on telemetry for respiratory failure and volume overload. Patient does not use oxygen and personal home care. Principal Diagnosis Acute bronchitis, Acute respiratory failure with hypoxia, Acute on chronic diastolic CHF Discharge Exam Constitutional WD/WN, vitals as above + obese Eyes + anicteric sclerae Neck trachea midline, no thyromegaly Respiratory normal respiratory effort; no labored breathing Auscultation: + wheezes (occasional); no rales and no rhonchi Cardiovascular Rate/Rhythm: regular rate and regular rhythm Extremities: + edema (trace pitting edema legs to md tibia bilat) Chest (Breasts) Chest: normal inspection of chest Gastrointestinal (Abdomen) normal bowel sounds, soft, nontender, no hepatosplenomegaly Musculoskeletal Extremities: extremities normal to inspection; no cyanosis and no clubbing Skin no rashes, warm and dry Neurologic moves all extremities and awake; no focal motor deficits Psychiatric Orientation: alert, oriented to person and cooperative Lymphatic no lymphedema Discharge Data Allergies Allergy/AdvReac Type Severity Reaction Status Date / Time clindamycin Allergy Severe SHORTNESS Verified 05/24/19 17:08 OF BREATH Cephalosporins Allergy Intermediate RASH-UPSET Verified 05/24/19 17:09 STOMACH Penicillins Allergy Intermediate RASH-UPSET Verified 05/24/19 17:09 STOMACH sulfamethoxazole AdvReac Intermediate Vomiting Verified 05/24/19 17:09 [From Bactrim] trimethoprim [From Bactrim] AdvReac Intermediate Vomiting Verified 05/24/19 17:09 aspirin AdvReac Mild burning is Verified 05/24/19 17:09 stomach Consultations 05/24/19 18:47 ED Decision to Admit Stat 05/30/19 12:09 Consult Oncology Routine Consult Palliative Care Routine Ordered Studies 05/27/19 11:28 CT chest wo con Routine 05/31/19 11:30 FL video swallow Routine CXR x 2 ECHO Hospital Course (1) Cough: Acute bronchitis She has a h/o many years of second-hand smoke exposure Has a h/o frequent bronchitis episodes as per daughter. Has not had PFTs that family can recall or that can be found in the chart. CXRs on 05/24 and 05/[address] chest on 05/27 was normal. She has persistent wheezing on exam but is overall improved and now weaned off O2. - Continue albuterol HFA prn on discharge - continue prednisone taper of 30 mg PO daily and decrease by 10mg q3 days until completed - completed a 5 day course of azithromycin -continue Mucinex - Unable to provide sputum culture - Continue Breo Ellipta 1 inhalation daily. - Started Flonase for post-nasal drip. - RN reported pt was coughing more with food and drink. - Video swallow study on 05/31 was normal-no aspiration Stable for dc to home Recommend PFTs as outpt (2) Thrombocythemia: Platelets consistently high over all our values. No known work-up, though patient's dementia limits her ability to report much Heme/Onc consult appreciated--> thinks could be ET -check JAK2, MPL gene mutations. Also recommended calreticulin but I cannot find it in our ordering system and therefore it was not drawn -follow platelets--> into the 800s and now down to 700s on day of dc -follow CBC as an outpt -should have outpt f/u with Hematology, Dr. Rishi Keith (3) Leukocytosis: persistently elevated here likely secondary to previous infectious bronch itis and steroid use--> will get better with time -follow CBC as an outpt (4) CHF (congestive heart failure): Acute on chronic diastolic CHF; Echo on 05/25/19 showed EF 60-65%; mild LVH. Was diuresed on admission and now much improved with less leg edema -revert back to home dose of lasix 20mg 3x/week -restart home HCTZ 25mg daily - Continue BP control advised low Na+ diet and fluid restriction on discharge (5) Acute respiratory failure: Procalcitonin negative, chest x-ray and CT chest were negative for pneumonia. Had increased sputum production Has been treated with azithromycin x 5 days - Continue supportive treatment as above, steroid taper as above -passed a 2 step walk test prior to discharge-dropped to 89% with ambulation and does not meet criteria for home O2 (6) Depression due to dementia: RNs report she is quiet, but no overt indication of depression. - Continue escitalopram 10 mg p.o. every morning, - Continue lorazepam 0.5 mg p.o. daily as needed. - Palliative care consult appreciated Discussed further with family-they still want her to be treated and hospitalized if needed No hospice at this point but if she continues to decline, would be interested at that time (7) GERD (gastroesophageal reflux disease): Continue pantoprazole 40 mg p.o. every morning, continue sucralfate 1 mg p.o. twice daily for gastritis. (8) DVT prophylaxis: Heparin 5000 units SQ Q12h was provided Dispo-stable for dc to home with home health at [facility] Total Time Total Time Spent Total Time Spent (In Minutes): 35 min Total Time Includes: Examination of the Patient, Discharge Planning and Medication Reconciliation Discharge Plan Discharge Items Patient Disposition: Home - Home Health Services Reason For Visit: RESPIRATORY FAILURE,VOLUME OVERLOAD Discharge Diagnosis: Volume overload from diastolic CHF, Acute bronchitis and acute respiratory failure with hypoxia-resolved Condition on Discharge: Fair Activity: Resume your previous activity Bathing: No limitations Exercise/Sports: Gradually increase as tolerated Non-emergency contact: Primary Care Provider Call non-emergency contact if: you have any medication questions, your symptoms worsen and your temperature is above 101 Follow-up/Referrals: Rishi Keith [Physician] - (Follow up within 2-3 weeks for elevated platelets ) Britney Person [Primary Care Provider] - Diet: Low Sodium (2gm) Fluids: 1800ml (7 cups) Addtl Attending Provider Instructions: Finish out the course of prednisone over the next week or so for your bronchitis. You should follow up with your PCP and inquire about pulmonary function testing to see if you have COPD or asthma. You were tested on the day of discharge and you did NOT need any oxygen anymore. You were given lasix to get rid of excess fluid from your legs. This may be due to excessive salt/sodium intake. You can revert back to taking the lasix 3x/week, but if you notice your legs swelling again, please let your doctor know. Follow up with the Pasteurizing Machine Operator/Oncologist for your elevated platelets. There are some blood tests pending at the time of discharge to further assess the cause of your high platelets. Follow up with your PCP as well within 1-2 weeks. Pending Studies at Discharge: Yes (JAK2, MPL) Stand-Alone Forms: My [facility] Medications and DC Order Prescriptions: New fluticasone propionate 50 mcg/actuation [place],Suspension 2 spray NA DAILY Qty: 18.2 RF: 0 prednisone 10 mg tablet 30 mg PO DAILY Qty: 19 RF: 0 guaifenesin [Mucinex] 600 mg Tablet Extended Release 12hr 600 mg PO Q12 Qty: 20 RF: 0 albuterol sulfate 90 mcg/actuation HFA aerosol inhaler 2 puffs INH Q6H PRN (Reason: shortness of breath or wheezing) Qty: 18 RF: 0 Continued losartan 50 mg tablet 25 mg PO HS Qty: 15 RF: 5 famotidine 20 mg tablet 20 mg PO BID Qty: 60 RF: 0 lorazepam 0.5 mg tablet 0.5 mg PO DAILY PRN (Reason: Anxiety) Qty: 30 RF: 0 cholecalciferol (vitamin D3) [Vitamin D3] 1,000 unit capsule 1,000 unit PO DAILY@1700 Qty: 90 RF: 1 furosemide 20 mg tablet 20 mg PO 3XWK RF: 0 hydrochlorothiazide 25 mg tablet 25 mg PO QAM Qty: 30 RF: 5 carvedilol [Coreg] 3.125 mg tablet 3.125 mg PO BIDM RF: 0 sucralfate 1 gram tablet 1 g PO BID RF: 0 pantoprazole 40 mg tablet,delayed release (DR/EC) 40 mg PO QAM RF: 0 escitalopram oxalate 10 mg tablet 10 mg PO QAM RF: 0 aspirin 81 mg Tablet,Delayed Release (Dr/Ec) 81 mg PO QAM RF: 0 PreserVision AREDS [id number] [id number] Tablet 1 tab PO QAM RF: 0 Travatan Z 0.004 % Drops 1 drp OPB HS RF: 0 Breo Ellipta 100-25 mcg/dose blister with device 1 inh inhalation DAILY RF: 0 nystatin 100,000 unit/gram powder 1 applic topical UD RF: 0 Discharge Orders: Discharge Order (Routine); Ordered 06/01/19 Ordered By: Esther Barnett Admission Data Admit Date/Time: 05/24/19 19:58 Attending Provider: Esther Barnett Admit Provider: Vandana Lucero Primary Care Provider: Britney Person Other Providers: Brendon Lewis ; Vandana Lucero ; Rishi Keith ; Amanda Wong ; [place] Other Interventions: Discharge Summary Assessment (RN) Last Done: 06/01/19 11:56
== END 2019-06-01 15:04 | disposition home health service (06) | DRG 202 ==
LOC: ED 14:53 → SUATTDRO 19:58 → 2E 19:58 → 4W 05-27 16:26